=== PATIENT | male | born 1955 | race Caucasian/White ===

== ENCOUNTER 2024-04-03 22:44 | Inpatient (IN) ==
--- OUTSIDE RECORDS SUMMARY | 2024-04-03 22:59 | External Medical Summary | Summary of Care ---
Author Name Unknown Organization [facility] Address [address] [place] [address] Phone [phone] Care Team Providers Care Repeater Chief Name Role Phone Hira Harvey DO Primary Care Provider Reason for Visit * Reason Onset Date Comments Test Results 03/22/2024 Lmtcb 03/23, lmtcb 03/24 Returning Call 03/22/2024 Encounter Details Date Type Department Care Team (Late st Contact Info) Description 03/22/2024 Telephone Urology Stephanie Sam [address] [place] [address] Joaquín Torres MD [address] [id number] Test Results (Lmtcb 03/23, lmtcb 03/24); Retur... Allergies Active Allergy Reactions Criticality Noted Date Comments Ibuprofen Hives 01/19/2024 documented as of this encounter (statuses as of 03/24/2024) Medications TYLENOL 8 HOUR 650 MG PO TBCRIndications: Multiple sclerosis (HCC) 2 TABLETS NEEDED 10 Tab 0 2 Active Multiple Vitamins-Mineral s (MULTIVITAMIN GUMMIES ADULT) chewable tablet Take 1 Tablet by mouth in the morning. Active polyethylene glycol 3350 (MIRALAX) packet Take 1 Packet by mouth in the morning. Active diazepam (VALIUM) 5 MG Tablet 1/2 to 1 tab at bedtime for spasticity 90 Tab 1 9 Active Additional Information Patient taking differently: 5 mg Oral Q6H PRN, 1/2 to 1 tab at bedtime for spasticity as needed, Reported on 03/17/2024 Vitamin B Complex Oral Tablet Take 1 Tablet by mouth in the morning. Active Vitamin C 100 MG Oral Tablet Take 1 Tablet by mouth in the morning. Active Fluticasone Propionate 50 MCG/ACT Nasal Suspension (Flonase)Indicat ions:ETD (Eustachian tube dysfunction), left USE 2 SPRAYS IN EACH NOSTRIL DAILY 48 g 3 2 Active Vitamin D (Ergocalciferol) 50 MCG (2000 UT) Oral Capsule Taking 2500 per day 1 Capsule 3 Active Amoxicillin 875 MG Oral Tablet Take 1 Tablet by mouth. Take prior to dental procedures 4 Active Tums Smoothies 750 MG Oral Tablet Chewable (calcium CARBonate) Take 300 mg by mouth as needed. 4 Active Cholecalciferol 50 MCG (2000 UT) Oral Capsule Take 1 Capsule by mouth in the morning. 4 Active Mylanta Coat & Cool 1200-270-80 MG/10ML Oral Suspension (Adrian Carb-Mag Hydrox-Simeth) Take by mouth. Active Rosuvastatin Calcium 5 MG Oral Tablet (Crestor)Indicat ions:Mixed dyslipidemia TAKE 1 TABLET IN THE MORNING 90 Tablet 1 4 Active oxyCODONE-Acetam inophen 5-325 MG Oral Tablet (Percocet) Take 1 Tablet by mouth every 4 hours as needed for Pain, Severe for up to 15 doses. 10 Tablet 4 Active HYDROcodone-Acet aminophen 7.5-325 MG Oral TabletIndication s:Pain due to dental caries Take 1 Tablet by mouth 2 times a day as needed for Pain, Severe. 30 Tablet 5 Active Ciprofloxacin HCl 500 MG Oral Tablet (Cipro) 5 Active metroNIDAZOLE 500 MG Oral Tablet (Flagyl) 5 Active Sucralfate 1 GM Oral Tablet (Carafate) 5 Active hydrOXYzine HCl 10 MG Oral Tablet (Atarax) Take 1 Tablet by mouth every 6 hours as needed for Anxiety. 90 Tablet 1 5 Active documented as of this encounter (statuses as of 03/24/2024) Active Problems Problem Noted Date Diagnosed Date Recurrent left inguinal hernia 12/16/2023 Elevated prostate specific antigen (PSA) 023 History of nonmelanoma skin cancer 05/20/2022 Overview (05/20/2022): Hx of BCC R temporal scalp s/p Mohs 05/07, L upper arm s/p C&C 04/2021, L faith s/p Mohs 2020, SCC dorsal R hand s/p Mohs 2020 Renal cyst 10/16/2017 Overview (10/16/2017): 09/02 5cm R cyst, 10/03 4.8cm - advised 1 year FU with US Dyslipidemia 03/01/2001 Gastroesophageal reflux disease without esophagi tis Multiple sclerosis documented as of this encounter (statuses as of 03/24/2024) Resolved Problems Problem Noted Date Diagnosed Date Resolved Date Encounter for central line care 07/29/2022 02/03/2023 Prediabetes 11/26/2020 07/01/2023 Overview: Per Prediabetes protocol Actinic keratosis 12/28/2012 02/03/2023 Verruca 12/28/2012 11/17/2016 Sun-damaged skin 12/28/2012 10/16/2017 Asthma with severity to be determined 08/09/2009 11/16/2009 Overview (05/28/2015): Per Asthma Taxonomy ICD-10 update of inactive term ADVANCE DIRECTIVE INFORMATION 07/30/2004 10/16/2017 Overview (07/30/2004): No, Advance Directive brochure given to patient at prior appointment. Family history of other card iovascular diseases 02/15/2001 11/17/2016 Overview (05/10/2015): ICD-10 update of inactive term FAM HX-DIABETES MELLITUS 02/15/200103/2016 ABDOMINAL PAIN, RIGHT UPPER QUADRANT 02/15/2001 10/27/2016 Abdominal pain, generalized 02/15/2001 10/27/2016 Asthma, allergic 08/09/2009 VACCIN FOR TUBERCULOSIS 01/16 documented as of this encounter (statuses as of 03/24/2024) Immunizations Name Administration Dates Next Due HEP A - Hepatitis A (Adult > 18 yrs) 12/22/1995, 06/25/1995 Hepatitis B, 20+ yrs 10/24/1997,02/13/1997,12/26 Influenza, Whole Virus 01/08/2005,1998,12/07/1997,12/23,12/22/1995 MMR - Measles/Mumps/Rubella Vaccine 11/16/1986 Meningococcal Polysaccharide Vaccine ([place]) 06/25/1995 OPV - Polio Virus Vaccine (Oral) 11/16/1978 Pneumococcal Polysaccharide PPV23 (Pneumovax) 05/22/2003 Pneumococcal Vaccine, Unspec ified Formulation 05/06/2002 Seasonal Influenza Vac., MDV , IM, 0.5 mL (Fluzone) 10/18/2014,10/24/2013,10/25/2012,11/20,11/16/2009,11/01/2008,12/31/2007 ,12/02/2006 Seasonal Influenza, PF, 6 M & above, IM , (FluLaval or Fluzone) 12/29/2018,12/10/2017,11/17/2016 TD - Tetanus/Diptheria (ADULT) 01/19/2006,1995 TDAP (age 10 and older)(Boostrix) 05/07/2023 TDAP, Age 7 and older, IM (Adacel) 11/16/2009 Typhoid VICPs Parenteral, 2 years and above (Typhim ) 06/25/1995 Yellow Fever Vaccine, Live (YF-Vax) 05/27/1989 documented as of this encounter Social History Tobacco Use Types Packs/Day Years Used Date Smoking Tobacco: Never Passive Smoke Exposure: Never Smokeless Tobacco: Never Alcohol Use Standard Drinks/Week Comments Yes 0 (1 standard drink = 0.6 oz pur e alcohol) rare PHQ-2 Answer Date Recorded PHQ Adult Total Score 0 07/12/2020 Hunger Vital Sign Answer Date Recorded Within the past 12 months, y ou worried that your food would run out before you got the money to buy more. Patient declined Within the past 12 months, t he food you bought just didn't last and you didn't have money to get more. Patient declined Childcare Answer Date Recorded Do you feel overwhelmed with taking care of a child, family member or friend? No 03/09/2024 Does your family need help f inding childcare? (Household - for ages 0-17 years) Not on file 03/09/2024 Clothing Answer Date Recorded Have you been unable to get clothing when it was really needed? No 03/09/2024 Is your family able to get c lothes or diapers when needed? (Household - for ages 0-17 years) Not on file 03/09/2024 Personal Safety Answer Date Recorded Do you feel unsafe or have concerns for your saf ety? No 03/09/2024 Do you have concerns for you r family's safety? (Household - for ages 0-17 years) Not on file 03/09/2024 Utilities Answer Date Recorded Do you have trouble paying y our heating, water, or electric bill? No 03/09/2024 Is your family able to pay t he heat, water, or electric bill? (Household - for ages 0-17 years) Not on file 03/09/2024 Does your family have access to good internet? (Household - for ages 0-17 years) Not on file 03/09/2024 Employment Status Answer Date Recorded Are you unemployed or without regular income? No 03/09/2024 Does the household have a re gular source of income? (Household - for ages 0-17 years) Not on file 03/09/2024 Social Connections Answer Date Recorded How often do you feel lonely or isolated from th ose around you? Never 03/09/2024 Financial Resource Strain Answer Date R ecorded Do you have any trouble payi ng for your medications, or do you think you might in the future? No 03/09/2024 Does your family have troubl e paying for medicine? (Household - for ages 0-17 years) Not on file 03/09/2024 Transportation Needs Answer Date Record ed Do you have trouble getting a ride to medical visits or work? (Adult - for ages 18 years and over) Not on file 03/09/2024 Does your family have a hard time getting a ride to doctors visits? (Household - for ages 0-17 years) Not on file 03/09/2024 Has lack of transportation k ept you from medical appointments, meetings, work, or from getting things needed for daily living? Check all that apply. No 03/09/2024 Do you (or your family) have trouble finding or paying for a ride (transportation)? (Household - for ages 0-17 years) Not on file 03/09/2024 Housing Stability Answer Date Recorded Do you currently live in a s helter or have no steady place to sleep at night? No 03/09/2024 Do you think you are at risk of becoming homeless? (Adult - for ages 18 years and over) Not on file 03/09/2024 Does your family worry about paying for your home or becoming homeless? (Household - for ages 0-17 years) Not on file 0 03/09/2024 Are you homeless or worried that you might be in the future? No 03/09/2024 Are you (or your family) john eless or worried that you might be in the future? (Household - for ages 0-17 years) Not on file Food Insecurity Answer Date Recorded Do you need food for this week? No 03/09/2024 Are you able to get enough f ood for your family? (Household - for ages 0-17 years) Not on file 03/09/2024 Does your family need food t his week? (Household - for ages 0-17 years) Not on file 03/09/2024 Do you always have enough fo od for your family? (Household - for ages 0-17 years) Not on file 03/09/2024 Food Insecurity Answer Date Recorded Within the past 12 months, y ou worried that your food would run out before you got the money to buy more. Patient declined Within the past 12 months, t he food you bought just didn't last and you didn't have money to get more. Patient declined Do you need food for this week? 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 * Telephone Encounter - Paris López OSA - 03/23/2024 11:50 AM EST Reason for patient's call: returning call Caller was transferred to [facility] at the nurse line. * Telephone Encounter - Deanna Corcoran LPN - 03/23/2024 11:02 AM EST lmtcb * Telephone Encounter - Joaquín Torres MD - 03/22/2024 3:37 PM EST Prostate MRI results are reviewed. This demonstrates a small area which is worrisome for the presence of clinically significant prostate cancer. Due to the small size of this area, my recommendation would be to consider an MRI fusion biopsy which would need to be performed in [place]. We can placeconsultation for discussion with providers there if they wished to see the patient prior to consideration of biopsy. If the patient wishes to discuss his findings beforehand he can follow-up as scheduled next month to review imaging results. Otherwise, we can place order for consultation for fusionbiopsy. Thanks, HM documented in this encounter Plan of Treatment Upcoming Encounters Date Type Department Care Team (Latest Contact Info) Description 04/12/2024 1:00 PM EST Hospital Encounter ENDO OSS, Endoscopy Room [facility] [address] [place] [phone] Sydnie Epps MD [address] [place] [address] 04/12/2024 1:00 PM EST - 04/12/2024 1:30 PM EST Surgery ENDO OSS, Endoscopy Room [facility] [address] [place] [phone] Sydnie Epps MD [address] [address] COLONOSCOPY FLEXIBLE PROXIMAL DIAGNOSTIC 04/29/2024 11:00 AM EDT Office Visit Gastroenterology, [facility] [address] [place] [address] Lima Page CRNP [address] [place] [address] 05/12/2024 11:15 AM EDT Office Visit Urology Stephanie Sam [address] [place] [address] Joaquín Torres MD [address] [place] [address] [address] 06/06/2024 9:20 AM EDT Office Visit Neurology [facility] [address] [facility] [place] [address] Renetta Dow MD [address] [facility] [place] [address] 07/15/2024 7:45 AM EDT Office Visit MOHS Surgery [facility] [address] [place], [place] [address] Eileen Deluca MD [address] [facility] [address] 09/15/2024 8:00 AM EDT Office Visit Family Practice [facility] [address] [place] [address] Deanna Lujan CRNP [address] [place] [address] 02/02/2025 9:40 AM EST Office Visit Dermatology [facility] [address] [facility] [place] [address] Kimberly Qureshi PA-C [address] [facility] [place] [address] Scheduled Procedures Name Priority Associated Diagnoses Date/Ti me COLONOSCOPY FLEXIBLE PROXIMAL DIAGNOSTIC LLQ abdominal pain History of diverticulitis Gastroesophageal reflux disease, unspecified whether esophagitis present Gastroesophageal reflux disease without esophagitis 04/12/2024 1:00 PM EST Health Maintenance Due Date Last Done Comments Cologuard 2002 Fecal Occult Blood Test 2002 Sigmoidoscopy 2002 Pneumococcal Vaccine: 50+ Years (2 of 2 - PCV) 07/03/2007 05/22/2003 Zoster Vaccines (1 of 2) 07/03/2007 Depression Screening 07/12/2021 07/12/2020 Adult Wellness Visit 07/03/2023 COVID-19 Vaccine (1 - season) 2023 Influenza Vaccine (FLU shot) (#1) 2023 12/29/2018, 12/10/2017, 11/17/2016, Additional history exists Colonoscopy 06/24/2025 06/24/2022, 10/2022, 05/26/2018, Additional history exists Colorectal Cancer Screening 06/24/2025 Lipid Panel 06/01/2028 06/02/2023, 10/2022, 09/18/2021, Additional history exists DTap/Tdap Vaccines (3 - Td or Tdap) 05/06/2033 05/07/2023, 11/16/2009, 01/19/2006, Additional history exists MENINGOCOCCAL (MENACTRA/MENVEO) Aged Out 06/25/1995 No longer eligible based on patient's age to complete this topic Hepatitis B Vaccine Completed 10/24/1997, 02/13/1997, 12/26/1996 Hepatitis C Screening Completed 07/20/2012 HPV (Gardasil) Vaccine Aged Out No lo nger eligible based on patient's age to complete this topic documented as of this encounter Medical Devices Implanted Type Area Electro Optics Engineer Device Identifier Shelf Expiration Date Model / Serial / Lot Mesh 13x9cm Monofilament Hernia Anatomical Medium Left Preshaped With Marking Polypropylene Dextile - [id number] Implanted:Qty: 1 on 01/19/2024 by Doron Torres MD at OR [facility] Left: Groin COVIDIEN 11/16/2027 [id number] / / [id number] documented as of this encounter Advance Directives * Full Code (Latest Code Status on File) Date Activated Date Inactivated Comments 01/19/2024 7:23 AM 01/19/2024 2:22 PM This order r eflects the patients wishes and were consensually agreed upon. Question Answer Comments Discussion of Advance Directives occurred with: Patient Care Teams Repeater Chief Relationship Specialty Start Date End Date Hira Harvey DO [address] [place] [address] PCP - General Family Medicine 06/22/20 documented as of this encounter
--- OUTSIDE RECORDS SUMMARY | 2024-04-03 22:59 | External Medical Summary | Summary of Care ---
Author Name Unknown Organization [facility] Address [address] [place] [address] Phone [phone] Care Team Providers Care Computer Forensics Technician Name Role Phone Hira Harvey DO Primary Care Provider Reason for Visit * Reason Onset Date Comments Test Results 03/22/2024 Lmtcb 03/23, lmtcb 03/24 Returning Call 03/22/2024 Encounter Details Date Type Department Care Team (Late st Contact Info) Description 03/22/2024 Telephone Urology Stephanie Sam [address] [place] [address] Joaquín Torres MD [address] [place] [address] [id number] Test Results (Lmtcb 03/23, lmtcb 03/24); Retur... [...] L upper arm s/p C&C 04/2021, L denominational s/p Mohs 2020, SCC dorsal R hand [...] Encounter - Deanna Corcoran LPN - 03/24/2024 1:21 PM EST Spoke with pt, aware of results and below information, voiced understanding. Patient is agreeable to fusion biopsy and knows this is done in [place]. Please call him to schedule. Patient has colonoscopy scheduled 04/12/24, he is unsure if this will affect biopsy. Please arrange follow up with Dr Torers about 2 weeks after biopsy to discuss results as well. Currently scheduled 05/12/2024, patient is aware this may need to be moved. Thank you Ana M * Telephone Encounter - Deanna Corcoran LPN - 03/24/2024 10:49 AM EST Lmtcb * Telephone Encounter - Loree Alvarez OSA - 03/23/2024 11:53 AM EST Call before 1:30 if possible for test results as he has a dentist appt. * Telephone Encounter - Paris López OSA - 03/23/2024 11:50 AM EST Reason for patient's call: returning call Caller was transferred to [facility] at the nurse line. * Telephone Encounter [...] which would need to be performed in [place]. We can placeconsultation for discussion with providers [...] 04/12/2024 1:00 PM EST Hospital Encounter ENDO OSSC, Endoscopy Room [facility] [address] [place] [phone] Sydnie Epps MD [address] [place] [address] 04/12/2024 1:00 PM EST - 04/12/2024 1:30 PM EST Surgery ENDO OSS, Endoscopy Room [facility] [address] [place] [phone] Sydnie Epps MD [address] [place] [address] COLONOSCOPY FLEXIBLE PROXIMAL DIAGNOSTIC 04/29/2024 11:00 AM EDT Office Visit Gastroenterology, [facility] [address] [place] [address] Lima Page CRNP [address] [place] [address] 05/12/2024 11:15 AM EDT Office Visit Urology Naty WatkinsStephanie [address] [place] [address] Joaquín Torres MD [address] [place] [address] 06/06/2024 9:20 AM EDT Office Visit Neurology [facility] [address] [facility] [place] [address] Renetta Dow MD [address] [place] [address] 07/15/2024 7:45 AM EDT Office Visit [facility] [address] Eileen Deluca MD [address] [facility] [place] [address] 09/15/2024 8:00 AM EDT Office Visit Family Practice [facility] [address] [place] [address] Deanna Lujan CRNP 132 [facility] [place] [address] 02/02/2025 9:40 AM EST Office Visit Dermatology [facility] [address] [place] [address] Kimberly Qureshi PA-C [address] [facility] [place] [address] Scheduled Procedures Name Priority Associated Diagnoses Date/Ti [...] 11/17/2016, Additional history exists Colonoscopy 06/24/2025 06/24/2022, 0 10/2022, 05/26/2018, Additional history exists Colorectal Cancer [...] this encounter Medical Devices Implanted Type Area Lube Attendant Device Identifier Shelf Expiration Date Model / Serial / Lot Mesh 13x9cm Monofilament Hernia Anatomical Medium Left Preshaped With Marking Polypropylene Dextile - [id number] Implanted:Qty: 1 on 01/19/2024 by Doron Torres MD at OR [facility] Left: Groin COVIDIEN 11/16/2027 [id number] / / [id number] documented as of this encounter Advance Directives * Full Code (Latest Code Status on File) Date Activated Date Inactivated Comments 01/19/2024 7:23 AM 01/19/2024 2:22 PM This order r eflects the patients wishes and were consensually agreed upon. Question Answer Comments Discussion of Advance Directives occurred with: Patient Care Teams Computer Forensics Technician Relationship Specialty Start Date End Date Hira Harvey DO [address] [place] [address] PCP - General Family Medicine 06/22/20 documented as of this encounter
--- OUTSIDE RECORDS SUMMARY | 2024-04-03 22:59 | External Medical Summary ---
Author Name Unknown Address Unknown Organization K01:[facility] [place] [address] [address] [facility] [address] Laboratory Report Ordering Provider Test Date Status [address] 04/01/2024 10:50:47 Final Observation Date Value Abnormality Reference (Units ) Status Campylobacter sp DNA.diarrheagenic [Presence] in Stool by DWAINE with probe detection 04/01/2024 10:50:47 Negative Negative Final Salmonella sp rpoD gene [Presence] in Stool by DWAINE with probe detection 04/01/2024 10:50:47 Negative Negative Final Shigella species+EIEC invasion plasmid antigen H ipaH gene [Presence] in Stool by DWAINE with probe detection 04/01/2024 10:50:47 Negative Negative Final Vibrio sp DNA [Identifier] in Specimen by DWAINE with probe detection 04/01/2024 10:50:47 Negative Negative Final Yersinia enterocolitica recN gene [Presence] in Stool by DWAINE with probe detection 04/01/2024 10:50:47 Negative Negative Final Escherichia coli Stx1 toxin stx1 gene [Presence] in Stool by DWAINE with probe detection 04/01/2024 10:50:47 Negative Negative Final Escherichia coli Stx2 toxin stx2 gene [Presence] in Stool by DWAINE with probe detection 04/01/2024 10:50:47 Negative Negative Final Norovirus genogroups I and II RNA panel - Stool by DWAINE with probe detection 04/01/2024 10:50:47 Negative Negative Final Rotavirus A RNA [Presence] in Stool by DWAINE with probe detection 04/01/2024 10:50:47 Negative Negative Final Performing Location LABORATORY [address] [facility] [address]
--- OUTSIDE RECORDS SUMMARY | 2024-04-03 22:59 | External Medical Summary | Summary of Care ---
Author Name Unknown Organization [facility] Address [address] [place] [address] Phone [phone] Care Team Providers Care Electric Motor Rebuilder Name Role Phone Hira Harvey DO Primary Care Provider Reason for Visit * Reason Onset Date Comments Test Results 03/22/2024 Lmtcb 03/23, lmtcb 03/24 Returning Call 03/22/2024 Encounter Details Date Type Department Care Team (Late st Contact Info) Description 03/22/2024 Telephone Urology Stephanie Sam [address] [place] [address] Joaquín Torres MD [address] [place] [address] [id number] Test Results (Lmtcb 2, lmtcb 03/24); Retur... Allergies Active Allergy Reactions Criticality Noted Date Comments Ibuprofen Hives 01/19/2024 documented as of this encounter (statuses as of 03/29/2024) Medications TYLENOL 8 HOUR 650 MG PO [...] as of this encounter (statuses as of 03/29/2024) Active Problems Problem Noted Date Diagnosed Date Recurrent left inguinal hernia 12/16/2023 Elevated prostate specific antigen (PSA) 023 History of nonmelanoma skin cancer 05/20/2022 Overview (05/20/2022): Hx of BCC R temporal scalp s/p Mohs 05/07, L upper arm s/p C&C 04/2021, L buddhist s/p Mohs 2020, SCC dorsal R hand s/p Mohs 2020 Renal cyst 10/16/2017 Overview (10/16/2017): 09/02 5cm R cyst, 10/03 4.8cm - advised 1 year FU with US Dyslipidemia 03/01/2001 Gastroesophageal reflux disease without esophagi tis Multiple sclerosis documented as of this encounter (statuses as of 03/29/2024) Resolved Problems Problem Noted Date Diagnosed Date [...] as of this encounter (statuses as of 03/29/2024) Immunizations Name Administration Dates Next Due HEP [...] encounter Miscellaneous Notes * Telephone Encounter - Pascual Garcia OSA - 03/29/2024 1:01 PM EST Please reach out to patient to schedule. Thank you! * Telephone Encounter - Deanna Corcoran LPN - 03/24/2024 1:21 PM EST Spoke with pt, aware of results and below information, voiced understanding. Patient is agreeable to fusion biopsy and knows this is done in [place]. Please call him to schedule. Patient has colonoscopy scheduled 04/12/24, he is unsure if this will affect biopsy. Please arrange follow up with Dr Torres about 2 weeks after biopsy to discuss [...] call: returning call Caller was transferred to [facility] at the nurse line. * Telephone [...] which would need to be performed in [place]. We can placeconsultation for discussion with providers [...] EST Hospital Encounter ENDO OSSC, Endoscopy Room [facility] [address] [place] [phone] Sydnie Epps MD [address] [place] [address] 04/12/2024 1:00 PM EST - 04/12/2024 1:30 PM EST Surgery ENDO OSSC, Endoscopy Room OSS [address] [place] [address] Sydnie Epps MD [address] [place] [address] COLONOSCOPY FLEXIBLE PROXIMAL DIAGNOSTIC 04/29/2024 11:00 AM EDT Office Visit Gastroenterology, [facility] 132 [facility] [place] [address] Lima Page CRNP 132 [facility] [address] 05/12/2024 11:15 AM EDT Office Visit Urology Nat[place] Stephanie Watkins [address] [place] [address] Joaquín Torres MD 27 [place] [address] 06/06/2024 9:20 AM EDT Office Visit [facility] [address] Renetta Dow MD 200 [place] [address] 06/24/2024 3:30 PM EDT Office Visit Urology, [place] [address] [place] [address] Juan Miguel Manley MD [address] [place] [address] 07/15/2024 7:45 AM EDT Office Visit MOHS Surgery [facility] 200 [place] [address] Eileen Deluca MD 200 [facility] [address] 09/15/2024 8:00 AM EDT Office Visit Family Practice [facility] 132 [facility] [place] [address] Deanna Lujan CRNP [address] [place] [address] 02/02/2025 9:40 AM EST Office Visit Dermatology Kishore Roberson [place] 200 [facility] [place] [address] Kimberly Qureshi PA-C [address] [place] [address] Scheduled Procedures Name Priority Associated Diagnoses Date/Ti [...] 07/12/2020 Adult Wellness Visit 07/03/2023 COVID-19 Vaccine ( - season) 2023 Influenza Vaccine (FLU shot) (#1) 2023 12/29/2018, 12/10/2017, 11/17/2016, Additional history exists Colonoscopy 06/24/2025 06/24/2022, 10/2022, 05/26/2018, Additional history exists Colorectal Cancer Screening 06/24/2025 Lipid Panel 06/01/2028 06/02/2023, 0 10/2022, 09/18/2021, Additional history exists DTap/Tdap Vaccines [...] this encounter Medical Devices Implanted Type Area Java Xml Developer Device Identifier Shelf Expiration Date Model / Serial / Lot Mesh 13x9cm Monofilament Hernia Anatomical Medium Left Preshaped With Marking Polypropylene Dextile - [id number] Implanted:Qty: 1 on 01/19/2024 by Doron Torres MD at OR [facility] Left: Groin COVIDIEN 11/16/2027 [id number] / / [id number] documented as of this encounter Advance Directives * Full Code (Latest Code Status on File) Date Activated Date Inactivated Comments 01/19/2024 7:23 AM 01/19/2024 2:22 PM This order r eflects the patients wishes and were consensually agreed upon. Question Answer Comments Discussion of Advance Directives occurred with: Patient Care Teams Electric Motor Rebuilder Relationship Specialty Start Date End Date Hira Harvey DO [address] [place] [address] PCP - General Family Medicine 06/22/20 documented as of this encounter
--- OUTSIDE RECORDS SUMMARY | 2024-04-03 22:59 | External Medical Summary | Summary of Care ---
Author Name Unknown Organization [facility] Address [address] [place] [address] Phone [phone] Care Team Providers Care Log Washer Name Role Phone Hira Harvey DO Primary Care Provider Reason for Visit * Reason Onset Date Comments Test Results 04/01/2024 Encounter Details Date Type Department Care Team (Late st Contact Info) Description 04/01/2024 Telephone Gastroenterology, [facility] [address] [place] [address] Lima Page CRNP 132 [facility] [place] [address] Test Results Allergies Active Allergy Reactions Criticality Noted Date Comments Ibuprofen Hives 01/19/2024 documented as of this encounter (statuses as of 04/01/2024) Medications TYLENOL 8 HOUR 650 MG PO [...] 2 Active Vitamin D (Ergocalciferol) 50 MCG (1999 UT) Oral Capsule Taking 2500 per day 1 Capsule 3 Active Amoxicillin 875 MG Oral Tablet Take 1 Tablet by mouth. Take prior to dental procedures 4 Active Tums Smoothies 750 MG Oral Tablet Chewable (calcium CARBonate) Take 300 mg by mouth as needed. 4 Active Cholecalciferol 50 MCG (1999 UT) Oral Capsule Take 1 Capsule by [...] for Anxiety. 90 Tablet 1 5 Active Esomeprazole Magnesium 20 MG Oral Capsule Delayed Release (NexIUM)Indicati ons:LLQ abdominal pain,History of diverticulitis,G astroesophageal reflux disease, unspecified whether esophagitis present Take 2 Capsules by mouth daily before breakfast. 180 Capsule 3 5 Active Famotidine 20 MG Oral Tablet (Pepcid)Indicati ons:LLQ abdominal pain,History of diverticulitis,G astroesophageal reflux disease, unspecified whether esophagitis present Take 1 Tablet by mouth at bedtime. 90 Tablet 3 5 Active documented as of this encounter (statuses as of 04/01/2024) Active Problems Problem Noted Date Diagnosed Date Recurrent left inguinal hernia 12/16/2023 Elevated prostate specific antigen (PSA) 023 History of nonmelanoma skin cancer 05/20/2022 Overview (05/20/2022): Hx of BCC R temporal scalp s/p Mohs 05/07, L upper arm s/p C&C 04/2021, L amish s/p Mohs 2020, SCC dorsal R hand s/p Mohs 2020 Renal cyst 10/16/2017 Overview (10/16/2017): 09/02 5cm R cyst, 10/03 4.8cm - advised 1 year FU with US Dyslipidemia 03/01/2001 Gastroesophageal reflux disease without esophagi tis Multiple sclerosis documented as of this encounter (statuses as of 04/01/2024) Resolved Problems Problem Noted Date Diagnosed Date [...] as of this encounter (statuses as of 04/01/2024) Immunizations Name Administration Dates Next Due HEP [...] encounter Miscellaneous Notes * Telephone Encounter - Elayne Lund CMA - 04/01/2024 3:29 PM EST ----- Message from Lima Page sent at 04/01/2024 3:04 PM EST ----- C diff negative documented in this encounter Plan of Treatment Upcoming Encounters Date Type Department Care Team (Latest Contact Info) Description 04/12/2024 1:00 PM EST Hospital Encounter ENDO [facility], Endoscopy Room [facility] 132 [facility] [place] [phone] Sydnie Epps MD [address] [place] [address] 04/12/2024 1:00 PM EST - 04/12/2024 1:30 PM EST Surgery ENDO OSS, Endoscopy Room [facility] [address] [place] [phone] Sydnie Epps MD [address] [place] [address] COLONOSCOPY FLEXIBLE PROXIMAL DIAGNOSTIC 04/29/2024 11:00 AM EDT Office Visit Gastroenterology, [facility] [address] [place] [address] Lima Page CRNP [address] [place] [address] 05/12/2024 11:15 AM EDT Office Visit Urology Stephanie Sam [address] [place] [address] Joaquín Torres MD [address] [place] [address] 06/06/2024 9:20 AM EDT Office Visit Neurology [facility] 200 [place] [address] Renetta Dow MD 200 [place] [address] 06/24/2024 3:30 PM EDT Office Visit Urology, [place] [address] [place] [address] Juan Miguel Manley MD [address] [place] [address] 07/15/2024 7:45 AM EDT Office Visit MOHS Surgery [facility] [address] [place] [address] Eileen Deluca MD 200 [place] [address] 09/15/2024 8:00 AM EDT Office Visit Family Practice [facility] [address] [place] [address] Deanna Lujan CRNP [address] [place] [address] 02/02/2025 9:40 AM EST Office Visit Dermatology Kishore Roberson [place] 200 [facility] [place], [place] [address] Kimberly Qureshi PA-C 200 [facility] [place] [address] Scheduled Procedures Name Priority Associated Diagnoses Date/Ti [...] 11/17/2016, Additional history exists Colonoscopy 06/24/2025 06/24/2022, 050 10/2022, 05/26/2018, Additional history exists Colorectal Cancer Screening 06/24/2025 Lipid Panel 06/01/2028 06/02/2023, /0 10/2022, 09/18/2021, Additional history exists DTap/Tdap Vaccines [...] on patient's age to complete this topic Meningitis B Vaccine (Bexsero/Trumemba) Aged Out No longer eligible based on patient's age to complete this topic documented as of this encounter Medical Devices Implanted Type Area Skiving Machine Operator Device Identifier Shelf Expiration Date Model / Serial / Lot Mesh 13x9cm Monofilament Hernia Anatomical Medium Left Preshaped With Marking Polypropylene Dextile - [id number] Implanted:Qty: 1 on 01/19/2024 by Doron Torres MD at OR [facility] Left: Groin COVIDIEN 11/16/2027 [id number] / / [id number] documented as of this encounter Additional Health Concerns Infection Onset Date Last Indicated Resolved Time Gastrointestinal Rule-Out 04/01/2024 04/01/2024 7:04 PM EST C. difficile Rule-Out 04/01/2024 04/01/20242024 2:35 PM EST documented as of this encounter Advance Directives * Full Code (Latest Code Status on File) Date Activated Date Inactivated Comments 01/19/2024 7:23 AM 01/19/2024 2:22 PM This order r eflects the patients wishes and were consensually agreed upon. Question Answer Comments Discussion of Advance Directives occurred with: Patient Care Teams Log Washer Relationship Specialty Start Date End Date Hira Harvey DO [address] [place] [address] PCP - General Family Medicine 06/22/20 documented as of this encounter
--- OUTSIDE RECORDS SUMMARY | 2024-04-03 22:59 | External Medical Summary | Summary of Care ---
Author Name Unknown Organization [facility] Address [address] [place] [address] Phone [phone] Care Team Providers Care Slate Splitter Name Role Phone Hira Harvey DO Primary Care Provider Reason for Visit * Reason Comments Outpatient Testing Encounter Details Date Type Department Care Team (Late st Contact Info) Description 04/01/2024 10:50 AM EST Laboratory Laboratory, [facility] [address] [place] [address] St, Specimen Drop [facility] [address] [place], [place] [id number] LLQ abdominal pain; History of diverticulitis; Gastroesophageal reflux disease, unspecified whether esophagitis present; Diarrhea, unspecified type Allergies Active Allergy Reactions Criticality Noted Date [...] L upper arm s/p C&C 04/2021, L samaritan s/p Mohs 2020, SCC dorsal R hand [...] on file documented as of this encounter Plan of Treatment Upcoming Encounters Date Type Department Care Team (Latest Contact Info) Description 04/12/2024 1:00 PM EST Hospital Encounter ENDO OSS[facility], Endoscopy Room [facility] [address] [place] [phone] Sydnie Epps MD [address] [place] [address] 04/12/2024 1:00 PM EST - 04/12/2024 1:30 PM EST Surgery ENDO OSS, Endoscopy Room [facility] [address] [place] [phone] Sydnie Epps MD [address] [place] [address] COLONOSCOPY FLEXIBLE PROXIMAL DIAGNOSTIC 04/29/2024 11:00 AM EDT Office Visit Gastroenterology, [facility] [address] [place] [address] Lima Page CRNP [address] [place] [address] 05/12/2024 11:15 AM EDT Office Visit Urology Naty Stephanie Watkins [address] [place] [address] Joaquín Torres MD [address] [place] [address] 06/06/2024 9:20 AM EDT Office Visit Neurology [facility] 200 [place] [address] Renetta Dow MD 200 [place] [address] 06/24/2024 3:30 PM EDT Office Visit Urology, [place] [address], [place] [phone] Juan Miguel Manley MD [address], [place] [address] 07/15/2024 7:45 AM EDT Office Visit MOHS Surgery [facility] 200 [place] [address] Eileen Deluca MD [facility] [address] 09/15/2024 8:00 AM EDT Office Visit Family Practice [facility] [address] Deanna Lujan [facility] [address] 02/02/2025 9:40 AM EST Office Visit Dermatology [facility] [address] Kimberly Qureshi PA-C [facility] [address] Pending Results Name Type Priority Associated Diagnoses Date /Time GASTROINTESTINAL PATHOGEN PANEL, STOOL Lab Routine LLQ abdominal pain History of diverticulitis Gastroesophageal reflux disease, unspecified whether esophagitis present Diarrhea, unspecified type 04/01/2024 10:50 AM EST CLOSTRIDIUM DIFFICILE, PCR Lab Routine LLQ abdominal pain History of diverticulitis Gastroesophageal reflux disease, unspecified whether esophagitis present 04/01/2024 10:46 AM EST GASTROINTESTINAL PATHOGEN PANEL PCR Lab Routine LLQ abdominal pain History of diverticulitis Gastroesophageal reflux disease, unspecified whether esophagitis present Diarrhea, unspecified type 04/01/2024 10:50 AM EST GASTROINTESTINAL PATHOGEN PANEL CULTURE Lab Routine LLQ abdominal pain History of diverticulitis Gastroesophageal reflux disease, unspecified whether esophagitis present Diarrhea, unspecified type 04/01/2024 10:50 AM EST Scheduled Procedures Name Priority Associated Diagnoses Date/Ti [...] Adult Wellness Visit 07/03/2023 COVID-19 Vaccine ( season) 2023 Influenza Vaccine (FLU shot) (#1) [...] this encounter Medical Devices Implanted Type Area [place]ra [place]ta Roofer Device Identifier Shelf Expiration Date Model / Serial / Lot Mesh 13x9cm Monofilament Hernia Anatomical Medium Left Preshaped With Marking Polypropylene Dextile - [id number] Implanted:Qty: 1 on 01/19/2024 by Doron Torres MD at OR [facility] Left: Groin COVIDIEN 11/16/2027 [id number] / / [id number] documented as of this encounter Visit Diagnoses Diagnosis LLQ abdominal pain Abdominal pain, left lower quadrant History of diverticulitis Gastroesophageal reflux disease, unspecified whether esophagitis present Diarrhea, unspecified type LLQ abdominal pain Abdominal pain, left lower quadrant History of diverticulitis Gastroesophageal reflux disease, unspecified whether esophagitis present Gastroesophageal reflux disease without esophagitis Esophageal reflux documented in this encounter Additional Health Concerns Infection Onset Date Last Indicated Resolved Time Gastrointestinal Rule-Out 04/01/2024 04/01/2024 C. difficile Rule-Out 04/01/2024 04/01/2024 documented as of this encounter Advance Directives * Full Code (Latest Code Status on File) Date Activated Date Inactivated Comments 01/19/2024 7:23 AM 01/19/2024 2:22 PM This order r eflects the patients wishes and were consensually agreed upon. Question Answer Comments Discussion of Advance Directives occurred with: Patient Care Teams Slate Splitter Relationship Specialty Start Date End Date Hira Harvey DO [address] [place] [address] PCP - General Family Medicine 06/22/20 documented as of this encounter
--- OUTSIDE RECORDS SUMMARY | 2024-04-03 22:59 | External Medical Summary | Summary of Care ---
Author Name Unknown Organization [facility] Address [address] [place] [address] Phone [phone] Care Team Providers Care Engine Wiper Name Role Phone Hira Harvey DO Primary Care Provider Reason for Referral * Precert (Diagnostic Medical) (Within 10 days (routine)) - Authorized Specialty Diagnoses / Procedures Referred By Contac t Referred To Contact Cardiac Studies Diagnoses Multiple sclerosis (HCC) Other chest pain Procedures ECHO, STRESS (DOBUTAMINE) W/ PHYSICIAN Hira Harvey DO [address] [place] [address] Phone: tel: fax: Referral ID Status Reason Start Date Expiration Date V isits Requested Visits Authorized [id number] Authorized Precert 03/24/2024 999 999 Reason for Visit * Reason Onset Date Comments Cardiology Study 03/24/2024 Dobutamine Stre ss Test Encounter Details Date Type Department Care Team (Late st Contact Info) Description 03/24/2024 Telephone Family Practice [facility] [address] [place] [address] Hira Harvey DO [address] [place] [address] Cardiology Study (Dobutamine Stress Test) Allergies Active Allergy Reactions Criticality Noted Date [...] L upper arm s/p C&C 04/2021, L taoist s/p Mohs 2020, SCC dorsal R hand [...] 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 Not on file Not on file N ot on file documented as of this encounter Miscellaneous Notes * Addendum Note - Franco Li RN - 03/24/2024 10:22 AM ESTAddended by: FRANCO LI on: 03/24/2024 10:22 AM Modules accepted: Orders * Telephone Encounter - Franco Li RN - 03/24/2024 10:09 AM EST Order placed "off site" New order placed Ed Juliano ELLISONlog brander Testing Nurse documented in this encounter Plan of Treatment Upcoming Encounters Date Type Department Care Team (Latest Contact Info) Description 04/12/2024 1:00 PM EST Hospital Encounter ENDO [facility] [place] [phone] Sydnie Epps MD [address] [place] [id number] 04/12/2024 1:00 PM EST - 04/12/2024 1:30 PM EST Surgery ENDO OSSC, Endoscopy Room [facility] 132 [facility] [place] [phone] Sydnie Epps MD [address] [place] [address] COLONOSCOPY FLEXIBLE PROXIMAL DIAGNOSTIC 04/29/2024 11:00 AM EDT Office Visit Gastroenterology, [facility] 132 [facility] [place] [address] Lima Page CRNP 132 [facility] [address] 05/12/2024 11:15 AM EDT Office Visit Urology Stephanie Sam [address] [place] [address] Joaquín Torres MD [address] [place] [address] 06/06/2024 9:20 AM EDT Office Visit Neurology [facility] 200 [facility] [place] [address] Renetta Dow MD 200 [facility] [address] 07/15/2024 7:45 AM EDT Office Visit MOHS [facility] [address] Eileen Deluca MD 200 [facility] [place] [address] 09/15/2024 8:00 AM EDT Office Visit Family Practice [facility] [address] [place] [address] Deanna Lujan CRNP [address] [place] [address] 02/02/2025 9:40 AM EST Office Visit Dermatology [facility] 200 [facility] [place] [address] Kimberly Qureshi PA-C 200 [facility] [place] [address] Pending Results Name Type Priority Associated Diagnoses Date /Time ECHO, STRESS (DOBUTAMINE) W/ PHYSICIAN Echocardiology Routine Multiple sclerosis (HCC) Other chest pain 03/24/2024 11:34 AM EST Scheduled Orders Name Type Priority Associated Diagnoses Orde r Schedule ECHO, STRESS (DOBUTAMINE) W/ PHYSICIAN Echocardiology Routine Multiple sclerosis (HCC) Other chest pain Expected: 03/24/2024, Expires: 04/21/2024 Scheduled Procedures Name Priority Associated Diagnoses Date/Ti [...] this encounter Medical Devices Implanted Type Area Solar Installer Device Identifier Shelf Expiration Date Model / Serial / Lot Mesh 13x9cm Monofilament Hernia Anatomical Medium Left Preshaped With Marking Polypropylene Dextile - [id number] Implanted:Qty: 1 on 01/19/2024 by Doron Torres MD at OR [facility] Left: Groin COVIDIEN 11/16/2027 [id number] / / [id number] documented as of this encounter Visit Diagnoses Diagnosis Other chest pain- Primary Multiple sclerosis (HCC) Multiple sclerosis LLQ abdominal pain Abdominal pain, left lower quadrant History of diverticulitis Gastroesophageal reflux disease, unspecified whether esophagitis present Gastroesophageal reflux disease without esophagitis Esophageal reflux documented in this encounter Advance Directives * Full Code (Latest Code Status on File) Date Activated Date Inactivated Comments 01/19/2024 7:23 AM 01/19/2024 2:22 PM This order r eflects the patients wishes and were consensually agreed upon. Question Answer Comments Discussion of Advance Directives occurred with: Patient Care Teams Engine Wiper Relationship Specialty Start Date End Date Hira Harvey DO 132 [facility] [place] [address] PCP - General Family Medicine 06/22/20 documented as of this encounter
--- OUTSIDE RECORDS SUMMARY | 2024-04-03 22:59 | External Medical Summary ---
Author Name Unknown Address Unknown Organization K01:LABORAT[facility] - [address] [place] [address] Laboratory Report Ordering Provider Test Date Status ANGELINA WAY 04/01/2024 10:46:29 Final Observation Date Value Abnormality Reference (Units) Status Source 04/01/2024 10:46:29 Semi-liquid Final Clostridioides difficile toxin and [id number] strain DNA panel - Stool by DWAINE with probe detection 04/01/2024 10:46:29 Negative. No C. difficile toxin B gene DNA detected by PCR (Amplified Probe). Negative Final Performing Location LABORATORY [facility] - [address] [place] [address]
--- OUTSIDE RECORDS SUMMARY | 2024-04-03 22:59 | External Medical Summary | Summary of Care ---
Author Name Unknown Organization [facility] Address [address] [place] [address] Phone [phone] Care Team Providers Care Wastewater Project Manager Name Role Phone Hira Harvey DO Primary Care Provider Reason for Visit * Reason Comments Outpatient Testing Encounter Details Date Type Department Care Team (Late st Contact Info) Description 04/01/2024 10:50 AM EST Laboratory Laboratory, [facility] [address] [place] [address] St, Specimen Drop Off [facility] [address] [place], [place] [id number] LLQ abdominal pain; History of diverticulitis; Gastroesophageal [...] L upper arm s/p C&C 04/2021, L jehovah's witness s/p Mohs 2020, SCC dorsal R hand [...] EST Hospital Encounter ENDO OSSC, Endoscopy Room [facility] [address] [place] [phone] Sydnie Epps MD [address] [place] [address] 04/12/2024 1:00 PM EST - 04/12/2024 1:30 PM EST Surgery ENDO OSS, Endoscopy Room [facility] [address] [place] [address] Sydnie Epps MD [address] [place] [address] COLONOSCOPY FLEXIBLE PROXIMAL DIAGNOSTIC 04/29/2024 11:00 AM EDT Office Visit Gastroenterology, [facility] [address] [place] [address] Lima Page CRNP [address] [place] [address] 05/12/2024 11:15 AM EDT Office Visit Urology Nat[place] Stephanie Watkins [address] [place] [address] Joaquín Torres MD [address] [place] [address] 06/06/2024 9:20 AM EDT Office Visit Neurology [facility] [address] [facility] [place] [address] Renetta Dow MD [address] [facility] [place] [address] 06/24/2024 3:30 PM EDT Office Visit Urology, [place] [address] [place], [place] [phone] Juan Miguel Manley MD [address] [place], [place] [phone] 07/15/2024 7:45 AM EDT Office Visit MOHS Surgery [facility] 200 [place] [address] Eileen Deluca MD 200 [facility] [place] [address] 09/15/2024 8:00 AM EDT Office Visit Family Practice [facility] [address] De[facility] [address] 02/02/2025 9:40 AM EST Office Visit Dermatology [facility] [address] [facility] [place] [address] Kimberly Qureshi PA-C [address] [facility] [place] [address] Pending Results Name Type Priority Associated Diagnoses [...] this encounter Medical Devices Implanted Type Area Seismograph Shooter Device Identifier Shelf Expiration Date Model / Serial / Lot Mesh 13x9cm Monofilament Hernia Anatomical Medium Left Preshaped With Marking Polypropylene Dextile - [id number] Implanted:Qty: 1 on 01/19/2024 by Doron Torres MD at OR [facility] Left: Groin COVIDIEN 11/16/2027 [id number] / / [id number] documented as of this encounter Visit Diagnoses [...] Advance Directives occurred with: Patient Care Teams Wastewater Project Manager Relationship Specialty Start Date End Date Hira Harvey DO [address] [place] [address] PCP - General Family Medicine 06/22/20 documented as of this encounter
--- OUTSIDE RECORDS SUMMARY | 2024-04-03 22:59 | External Medical Summary ---
Author Name Unknown Address Unknown Organization [id number]:[facility] [place] [address] [facility] [address] [place] [id number] Laboratory Report Ordering Provider Test Date Status AN[address] 04/01/2024 10:50:47 Final Observation Date Value Abnormality Reference (Units) Status Bacteria identified in Specimen by Culture 04/01/2024 10:50:47 No Aeromonas species or Plesiomonas species isolated. Final Test: Gastrointestinal Patho gen Panel Culture
Specimen Source: Stool
Specimen Type: Stool
Specimen Date: 04/01/2024 1050
Result Date: 04/03/2024 1303
Result Status: Final result
Resulting Lab: [facility]
[address]
[place] [id number]

CULTURE

No Aeromonas species or Plesiomonas species isolated.

null Performing Location [facility] [place] - [address] [place] [id number]
--- OUTSIDE RECORDS SUMMARY | 2024-04-03 22:59 | External Medical Summary | Summary of Care ---
Author Name Unknown Organization [facility] Address [address] [place] [address] Phone [phone] Care Team Providers Care Real Estate Investment Analyst Name Role Phone Hira Harvey DO Primary Care Provider Reason for Visit * Reason Comments Outpatient Testing Encounter Details Date Type Department Care Team (Late st Contact Info) Description 04/01/2024 10:50 AM EST Laboratory Laboratory, [facility] [address] [place] [address] St, Specimen Drop Off [facility] [address] [place], [place] [phone] LLQ abdominal pain; History of diverticulitis; Gastroesophageal [...] EST Hospital Encounter ENDO OSSC, Endoscopy Room [facility] [address] [place] [phone] Sydnie Epps MD [address] [place] [address] 04/12/2024 1:00 PM EST - 04/12/2024 1:30 PM EST Surgery ENDO OSS, Endoscopy Room [facility] [address] [place] [phone] Sydnie Epps MD [address] [place] [address] COLONOSCOPY FLEXIBLE PROXIMAL DIAGNOSTIC 04/29/2024 11:00 AM EDT Office Visit Gastroenterology, [facility] [address] [place] [address] Lima Page CRNP [address] [place] [address] 05/12/2024 11:15 AM EDT Office Visit Urology Naty Stephanie Watkins [address] [place] [address] Joaquín Torres MD [address] [place] [address] 06/06/2024 9:20 AM EDT Office Visit Neurology [facility] 200 [facility] [place] [address] Renetta Dow MD 200 [facility] [place] [address] 06/24/2024 3:30 PM EDT Office Visit Urology, [place] [address] [place], [place] [phone] Juan Miguel Manley MD [address] [place], [place] [phone] 07/15/2024 7:45 AM EDT Office Visit MOHS Surgery [facility] 200 [place] [address] Eileen Deluca MD 200 [facility] [place] [address] 09/15/2024 8:00 AM EDT Office Visit Family Practice [facility] 132 [facility] [address] Deanna Lujan CRNP 132 [facility] [address] 02/02/2025 9:40 AM EST Office Visit Dermatology [facility] 200 [facility] [place] [address] Kimberly Qureshi PA-C 200 [facility] [place] [address] Pending Results Name Type Priority Associated Diagnoses [...] this encounter Medical Devices Implanted Type Area Tools Administrator Device Identifier Shelf Expiration Date Model / Serial / Lot Mesh 13x9cm Monofilament Hernia Anatomical Medium Left Preshaped With Marking Polypropylene Dextile - [id number] Implanted:Qty: 1 on 01/19/2024 by Doron Torres MD at OR [facility] Left: Groin COVIDIEN 11/16/2027 [id number] / / [id number] documented as of this encounter Visit Diagnoses [...] Advance Directives occurred with: Patient Care Teams Real Estate Investment Analyst Relationship Specialty Start Date End Date Hira Harvey DO [address] [place] [address] PCP - General Family Medicine 06/22/20 documented as of this encounter
--- OUTSIDE RECORDS SUMMARY | 2024-04-03 23:00 | External Medical Summary | Summary of Care ---
Author Name Unknown Organization [facility] Address [address] [place] [address] Phone [phone] Care Team Providers Care Ground Host/Hostess Name Role Phone Hira Harvey DO Primary Care Provider Encounter Details Date Type Department Care Team (Late st Contact Info) Description 03/17/2024 Orders Only Family Practice [facility] [address] [facility] [place] [address] Hira Harvey DO 132 [facility] [address] Allergies Active Allergy Reactions Criticality Noted Date Comments Ibuprofen Hives 01/19/2024 documented as of this encounter (statuses as of 03/17/2024) Medications TYLENOL 8 HOUR 650 MG PO [...] bedtime for spasticity as needed, Reported on 02/15/2024 Vitamin B Complex Oral Tablet Take 1 [...] 2500 per day 1 Capsule 3 Active Famotidine 20 MG Oral Tablet (Pepcid)Indicati ons:Gastroesopha geal reflux disease without esophagitis Take 1 Tablet by mouth in the morning and 1 Tablet before bedtime. 180 Tablet 3 4 Active Additional Information Patient taking differently:20 mg OralPRN, Reported on 02/15/2024 Amoxicillin 875 MG Oral Tablet Take 1 Tablet by mouth. Take prior to dental procedures 4 Active Tums Smoothies 750 MG Oral Tablet Chewable (calcium CARBonate) Take 300 mg by mouth as needed. 4 Active Cholecalciferol 50 MCG (1999 UT) Oral Capsule Take 1 Capsule by mouth in the morning. 4 Active Esomeprazole Magnesium 20 MG Oral Capsule Delayed Release (NexIUM)Indicati ons:Gastroesopha geal reflux disease without esophagitis Take 1 Capsule by mouth in the morning. 1 hour before the first meal of the day. 90 Capsule 3 4 Active Additional Information Patient taking differently:20 mg OralHS, (No instructions reported), Reported on 02/15/2024 Mylanta Coat & Cool 1200-270-80 MG/10ML Oral [...] to 15 doses. 10 Tablet 4 Active Additional Information Patient not taking.Reported on 02/15/2024 HYDROcodone-Acet aminophen 7.5-325 MG Oral TabletIndication s:Pain due to dental caries Take 1 Tablet by mouth 2 times a day as needed for Pain, Severe. 30 Tablet 5 Active Ciprofloxacin HCl 500 MG Oral Tablet (Cipro) 5 Active metroNIDAZOLE 500 MG Oral Tablet (Flagyl) 5 Active Sucralfate 1 GM Oral Tablet (Carafate) 5 Active documented as of this encounter (statuses as of 03/17/2024) Active Problems Problem Noted Date Diagnosed Date Recurrent left inguinal hernia 12/16/2023 Elevated prostate specific antigen (PSA) 023 History of nonmelanoma skin cancer 05/20/2022 Overview (05/20/2022): Hx of BCC R temporal scalp s/p Mohs 05/07, L upper arm s/p C&C 04/2021, L baptist s/p Mohs 2020, SCC dorsal R hand s/p Mohs 2020 Renal cyst 10/16/2017 Overview (10/16/2017): 09/02 5cm R cyst, 10/03 4.8cm - advised 1 year FU with US Dyslipidemia 03/01/2001 Gastroesophageal reflux disease without esophagi tis Multiple sclerosis documented as of this encounter (statuses as of 03/17/2024) Resolved Problems Problem Noted Date Diagnosed Date [...] as of this encounter (statuses as of 03/17/2024) Immunizations Name Administration Dates Next Due HEP [...] ages 0-17 years) Not on file 03/09/2024 Sex and Gender Information Value Date [...] Upcoming Encounters Date Type Department Care Team (Late st Contact Info) Description 03/17/2024 8:20 AM EST Office Visit Family Practice [facility] [address] [place] [address] Hira Harvey DO [address] [place] [address] Arrived 03/22/2024 1:00 PM EST Imaging [facility], a service of [address] [place] [address] 05/12/2024 11:15 AM EDT Office Visit Urology Stephanie Sam [address] [place] [place] [address] Joaquín Torres MD [address] [place] [address] 06/06/2024 9:20 AM EDT Office Visit Neurology [facility] [address] [facility] [place] [address] Renetta Dow MD [address] [facility] [place] [address] 07/15/2024 7:45 AM EDT Office Visit MOHS Surgery [facility] [address] [facility] [place] [address] Eileen Deluca MD [address] [facility] [place] [address] 02/02/2025 9:40 AM EST Office Visit Dermatology [facility] [address] [facility] [place] [address] Kimberly Qureshi PA-C [address] [place], [place] [address] Health Maintenance Due Date Last Done Comments [...] this encounter Medical Devices Implanted Type Area Adjunct Instructor Chemistry Device Identifier Shelf Expiration Date Model / Serial / Lot Mesh 13x9cm Monofilament Hernia Anatomical Medium Left Preshaped With Marking Polypropylene Dextile - [id number] Implanted:Qty: 1 on 01/19/2024 by Doron Torres MD at OR [facility] Left: Groin COVIDIEN 11/16/2027 [id number] / / [id number] documented as of this encounter Procedures Procedure Name Priority Date/Time Associated Diagnosis Comments CT ABD/PELVIS W IV AND W ORAL CONTRAST Routine 03/15/2024 documented in this encounter Results * CT ABD/PELVIS W IV AND W ORAL CONTRAST (03/15/2024) Anatomical Region Laterality Modality Body, Abdomen, Pelvis Other 03/15/2024 us Romeo Tafoya DO RAD CT Final Resu lt documented in this encounter Advance Directives * Full Code (Latest Code Status on File) Date Activated Date Inactivated Comments 01/19/2024 7:23 AM 01/19/2024 2:22 PM This order r eflects the patients wishes and were consensually agreed upon. Question Answer Comments Discussion of Advance Directives occurred with: Patient Care Teams Ground Host/Hostess Relationship Specialty Start Date End Date Hira Harvey DO 132 [facility] [place] [address] PCP - General Family Medicine 06/22/20 documented as of this encounter
--- OUTSIDE RECORDS SUMMARY | 2024-04-03 23:00 | External Medical Summary | Summary of Care ---
Author Name Unknown Organization [facility] Address [address] [place] [address] Phone [phone] Care Team Providers Care Junior Paralegal Name Role Phone Hira Harvey DO Primary Care Provider Reason for Visit * Reason Onset Date Comments Patient Instructions 03/23/2024 Encounter Details Date Type Department Care Team (Late st Contact Info) Description 03/23/2024 Telephone Gastroenterology, [facility] [place] [address] Lima Page CRNP 132 [facility] [place] [address] Patient Instructions Allergies Active Allergy Reactions Criticality Noted Date Comments Ibuprofen Hives 01/19/2024 documented as of this encounter (statuses as of 03/23/2024) Medications TYLENOL 8 HOUR 650 MG PO [...] as of this encounter (statuses as of 03/23/2024) Active Problems Problem Noted Date Diagnosed Date Recurrent left inguinal hernia 12/16/2023 Elevated prostate specific antigen (PSA) 023 History of nonmelanoma skin cancer 05/20/2022 Overview (05/20/2022): Hx of BCC R temporal scalp s/p Mohs 05/07, L upper arm s/p C&C 04/2021, L confucianism s/p Mohs 2020, SCC dorsal R hand s/p Mohs 2020 Renal cyst 10/16/2017 Overview (10/16/2017): 09/02 5cm R cyst, 10/03 4.8cm - advised 1 year FU with US Dyslipidemia 03/01/2001 Gastroesophageal reflux disease without esophagi tis Multiple sclerosis documented as of this encounter (statuses as of 03/23/2024) Resolved Problems Problem Noted Date Diagnosed Date [...] as of this encounter (statuses as of 03/23/2024) Immunizations Name Administration Dates Next Due HEP [...] Department Care Team (Latest Contact Info) Description 03/24/2024 10:35 AM EST Imaging Cardiac Studies, [facility] [address] [place] [address] 04/12/2024 1:00 PM EST Hospital Encounter ENDO OSSC, Endoscopy Room [facility] [address] [place] [phone] Sydnie Epps MD [address] [place] [address] 04/12/2024 1:00 PM EST - 04/12/2024 1:30 PM EST Surgery ENDO OSSC, Endoscopy Room [facility] [address] [place] [address] Sydnie Epps MD [address] [place] [address] COLONOSCOPY FLEXIBLE PROXIMAL DIAGNOSTIC 04/29/2024 11:00 AM EDT Office Visit Gastroenterology, [facility] [address] [place] [address] Lima Page CRNP [address] [place] [address] 05/12/2024 11:15 AM EDT Office Visit Urology Naty WatkinsStephanie [address] [place] [address] Joaquín Torres MD [address] [place] [address] 06/06/2024 9:20 AM EDT Office Visit Neurology [facility] 200 [facility] [place] [address] Renetta Dow MD 200 [facility] [place] [address] 07/15/2024 7:45 AM EDT Office Visit MOHS Surgery [facility] [address] [place] [address] Eileen Deluca MD 200 [facility] [place] [address] 09/15/2024 8:00 AM EDT Office Visit Family Practice [facility] [address] [place] [address] Deanna Lujan CRNP [address] [place] [address] 02/02/2025 9:40 AM EST Office Visit Dermatology [facility] 200 [facility] [place] [address] Kimberly Qureshi PA-C [address] [place] [address] Scheduled Procedures Name Priority Associated Diagnoses Date/Ti [...] this encounter Medical Devices Implanted Type Area Toll Line Mechanic Device Identifier Shelf Expiration Date Model / Serial / Lot Mesh 13x9cm Monofilament Hernia Anatomical Medium Left Preshaped With Marking Polypropylene Dextile - [id number] Implanted:Qty: 1 on 01/19/2024 by Doron Torres MD at OR [facility] Left: Groin COVIDIEN 11/16/2027 [id number] / / [id number] documented as of this encounter Advance Directives * Full Code (Latest Code Status on File) Date Activated Date Inactivated Comments 01/19/2024 7:23 AM 01/19/2024 2:22 PM This order r eflects the patients wishes and were consensually agreed upon. Question Answer Comments Discussion of Advance Directives occurred with: Patient Care Teams Junior Paralegal Relationship Specialty Start Date End Date Hira Harvey DO [address] [place] [address] PCP - General Family Medicine 06/22/20 documented as of this encounter
--- OUTSIDE RECORDS SUMMARY | 2024-04-03 23:00 | External Medical Summary | Summary of Care ---
Author Name Unknown Organization [facility] Address [address] [place] [address] Phone [phone] Care Team Providers Care Scientologist Name Role Phone Hira Harvey DO Primary Care Provider Reason for Referral * Precert (Diagnostic Medical) (Within 10 days (routine)) - Authorized Specialty Diagnoses / Procedures Referred By Jonathan taylor Referred To Contact Cardiac Studies Diagnoses Multiple sclerosis (HCC) Other chest pain Procedures ECHO, STRESS (DOBUTAMINE) W/CONTRAST Hira Harvey DO [address] [place] [address] Phone: tel: fax: Referral ID Status Reason Start Date Expiration Date V isits Requested Visits Authorized [id number] Authorized Precert 03/17/2024 999 999 * Evaluate & Treat - Unlimited Visits (Within 3 days (urgent)) - Authorized Specialty Diagnoses / Procedures Referred By Jonathan taylor Referred To Contact Gastroenterology Diagnoses Gastroesophageal reflux disease without esophagitis Diverticulitis of colon LLQ abdominal pain Hira Harvey DO [address] [place] [address] Phone: tel: fax: Referral ID Status Reason Start Date Expiration Date Visits Requested Visits Authorized [id number] Authorized Specialty Services Required 03/17/2024 999 999 Question Answer Referral Priority Within 3 days (urgent) Where should this appointment be scheduled? [facility] For what condition is the patient being referred? All Gastro Conditions Reason for Visit * Reason Comments Emergency Department Follow-Up Pt here f or ER F/U. Pt seen at [facility] in [place] on 03/15/2024. Pt continues Cipro and flagyl. Pt states he feels that heart is sometimes racing and feelings of "gas" or chest pressure behind breast bone. Encounter Details Date Type Department Care Team (Latest Contact Info) Description 03/17/2024 8:20 AM EST Office Visit Family Practice [facility] [address] [place] [address] Hira Harvey DO [address] [place] [address] Diverticulitis of colon*; Multiple sclerosis (HCC); Gastroesophageal reflux disease without esophagitis; Dyslipidemia; LLQ abdominal pain; MS (multiple sclerosis) (HCC); Other chest pain Allergies Active Allergy Reactions Criticality Noted Date Comments Ibuprofen Hives 01/19/2024 documented as of this encounter (statuses as of 03/17/2024) Medications TYLENOL 8 HOUR 650 MG PO TBCRIndications: Multiple sclerosis (HCC) 2 TABLETS NEEDED 10 Tab 0 06/17/19 12 Active Multiple Vitamins-Mineral s (MULTIVITAMIN GUMMIES ADULT) chewable tablet Take 1 Tablet by mouth in the morning. Active polyethylene glycol 3350 (MIRALAX) packet Take 1 Packet by mouth in the morning. Active diazepam (VALIUM) 5 MG Tablet 1/2 to 1 tab at bedtime for spasticity 90 Tab 1 04/29/19 19 Active Additional Information Patient taking differently: 5 [...] IN EACH NOSTRIL DAILY 48 g 3 05/23/19 22 Active Vitamin D (Ergocalciferol) 50 MCG (1999 UT) Oral Capsule Taking 2500 per day 1 Capsule 08/26/19 23 Active Famotidine 20 MG Oral Tablet (Pepcid)Indicati ons:Gastroesopha geal reflux disease without esophagitis Take 1 Tablet by mouth in the morning and 1 Tablet before bedtime. 180 Tablet 3 05/15/19 24 Active Additional Information Patient taking differently:20 mg OralPRN, Reported on 03/17/2024 Amoxicillin 875 MG Oral Tablet Take 1 Tablet by mouth. Take prior to dental procedures 04/27/19 24 Active Tums Smoothies 750 MG Oral Tablet Chewable (calcium CARBonate) Take 300 mg by mouth as needed. 03/02/19 24 Active Cholecalciferol 50 MCG (1999 UT) Oral Capsule Take 1 Capsule by mouth in the morning. 03/02/19 24 Active Mylanta Coat & Cool 1200-270-80 MG/10ML Oral Suspension (Adrian Carb-Mag Hydrox-Simeth) Take by mouth. Active Rosuvastatin Calcium 5 MG Oral Tablet (Crestor)Indicat ions:Mixed dyslipidemia TAKE 1 TABLET IN THE MORNING 90 Tablet 1 12/24/19 24 Active oxyCODONE-Acetam inophen 5-325 MG Oral Tablet (Percocet) Take 1 Tablet by mouth every 4 hours as needed for Pain, Severe for up to 15 doses. 10 Tablet 01/19/20 24 Active HYDROcodone-Acet aminophen 7.5-325 MG Oral TabletIndication s:Pain due to dental caries Take 1 Tablet by mouth 2 times a day as needed for Pain, Severe. 30 Tablet 02/17/19 25 Active Ciprofloxacin HCl 500 MG Oral Tablet (Cipro) 03/15/19 25 Active metroNIDAZOLE 500 MG Oral Tablet (Flagyl) 03/15/19 25 Active Sucralfate 1 GM Oral Tablet (Carafate) 03/15/19 25 Active Esomeprazole Magnesium 20 MG Oral Capsule Delayed Release (NexIUM)Indicati ons:Gastroesopha geal reflux disease without esophagitis Take 1 Capsule by mouth in the morning and 1 Capsule before bedtime. 180 Capsule 3 03/17/19 25 Active hydrOXYzine HCl 10 MG Oral Tablet (Atarax) Take 1 Tablet by mouth every 6 hours as needed for Anxiety. 90 Tablet 1 03/17/19 25 Active Esomeprazole Magnesium 20 MG Oral Capsule Delayed Release (NexIUM)Indicati ons:Gastroesopha geal reflux disease without esophagitis Take 1 Capsule by mouth in the morning. 1 hour before the first meal of the day. 90 Capsule 3 05/28/19 24 025 Discontin ued(Refil l) documented as of this encounter (statuses as of 03/17/2024) Active Problems Problem Noted Date Diagnosed Date Recurrent left inguinal hernia 12/16/2023 Elevated prostate specific antigen (PSA) 023 History of nonmelanoma skin cancer 05/20/2022 Overview (05/20/2022): Hx of BCC R temporal scalp s/p Mohs 05/07, L upper arm s/p C&C 04/2021, L congregation s/p Mohs 2020, SCC dorsal R hand [...] Passive Smoke Exposure: Never Smokeless Tobacco: Never Tobacco Cessation:Counseling Given: Not Answered Alcohol Use Standard Drinks/Week Comments Yes 0 [...] 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 Assessment and Plan Assessment & Plan Facial Pain and Hypertension Patient reports facial pain and numbness on one side, along with elevated blood pressure. Unclear if these symptoms are related to dental issues, MS flare, or cardiac issues. -Order EKG today to assess cardiac function. -Consult GI for possible scope. -Consider stress echocardiogram and cardiology follow-up. Gastrointestinal Issues Patient reports improvement in GI symptoms with Cipro and Flagyl. -Continue Nexium twice daily. -Consider GI consultation for possible scope. Prostate Cancer Surveillance Elevated PSA noted, with a scan scheduled for 03/22/2024. -Continue current surveillance plan. Multiple Sclerosis Patient reports recent MS flare. Unable to take steroids due to concurrent infections. -Continue current management plan. Dental Issues Patient reports ongoing dental issues and pain, possibly contributing to facial pain and hypertension. -Continue Flagyl for dental infection coverage. General Health Maintenance -Continue current medications as prescribed. -Encourage patient to resume exercise as tolerated. History of Present Illness Doron Davey is a 68 year old male that presents for Emergency Department Follow-Up (Pt here for ER F/U. Pt seen at [facility] on 03/15/2024. Pt continues Cipro and flagyl. Pt states he feels that heart is sometimes racing and feelings of "gas" or chest pressure behind breast bone.) History of Present Illness The patient, with a history of multiple sclerosis, presents with facial numbness and pain, which heinitially thought was related to a tooth infection. He reports that the pain is localized to one side of his face and extends into his sinus. He also reports experiencing numbness and tingling on thesame side of his face. The patient has been on penicillin for seven days for the tooth infection, but he believes the infection has not cleared. He also reports having chest discomfort and hypertension, which he believes is related to his facial pain. In addition to these symptoms, the patient also reports gastrointestinal issues. He has been on Cipro and Flagyl, which he reports has been helping with his gastrointestinal symptoms. However, he also reports sporadic bowel movements. The patient also has a history of prostate issues and has a scheduled scan for an elevated PSA level. He also reports having had a rough night prior to the visit, with what he thought was a heart attack. He reports feeling a pressure on his chest and experiencing pain in his jaw. He also reports that his blood pressure was elevated during this episode. The patient also mentions having had multiple surgeries in the past year, including a prostate biopsy, two hernia repairs, and a root canal. He reports that the root canal was the most painful experience he's had. He also mentions having had an MS flare and diverticulitis in the past year. Physical Exam Vitals: 03/17/24 0819 Temp: 97 F (36.1 C) Pulse: 74 Resp: 16 SpO2: 99% BP: 188/86 Physical Exam Constitutional: Appearance: Normal appearance. HENT: Head: Normocephalic and atraumatic. Eyes: Extraocular Movements: Extraocular movements intact. Pupils: Pupils are equal, round, and reactive to light. Cardiovascular: Rate and Rhythm: Regular rhythm. Bradycardia present. Pulmonary: Effort: Pulmonary effort is normal. Breath sounds: Normal breath sounds. Abdominal: General: Abdomen is flat. Palpations: Abdomen is soft. Tenderness: There is abdominal tenderness. Musculoskeletal: General: Normal range of motion. Skin: General: Skin is warm. Neurological: General: No focal deficit present. Mental Status: He is alert and oriented to person, place, and time. Psychiatric: Mood and Affect: Mood normal. Behavior: Behavior normal. Wrap-Up Follow Up: Return in about 3 months (around 06/15/2024). Time: Total time today was 44 minutes excluding any time spent in the performance of separately billed services. Text in this note was generated using an ambient documentation service. I discussed the use of a device to record and summarize our discussion today. All persons present during the encounter consented to its use. documented in this encounter Plan of Treatment Upcoming Encounters Date Type Department Care Team (Late st Contact Info) Description 03/22/2024 1:00 PM EST Imaging [facility], a service of [address] [place] [address] 03/23/2024 10:30 AM EST Office Visit Gastroenterology, [facility] [address] [place] [address] Lima Page CRNP [address] [place] [address] 03/24/2024 10:35 AM EST Imaging Cardiac Studies, [facility] [address] [place] [address] 05/12/2024 11:15 AM EDT Office Visit Urology Stephanie Sam [address] [place] [address] Joaquín Torres MD [place] [address] 06/06/2024 9:20 AM EDT Office Visit Neurology [facility] [address] [place] [address] Renetta Dow MD [address] [facility] [place], [place] [address] 07/15/2024 7:45 AM EDT Office Visit MOHS Surgery [facility] [address] [place], [place] [address] Eileen Deluca MD [address] [place] [address] 09/15/2024 8:00 AM EDT Office Visit Family Practice [facility] [address] [facility] [place] [address] Deanna Lujan CRNP [address] [place] [address] 02/02/2025 9:40 AM EST Office Visit Dermatology [facility] [address] [facility] [place], [place] [address] Kimberly Qureshi PA-C [address] [facility] [place], [place] [address] Scheduled Orders Name Type Priority Associated Diagnoses Orde r Schedule EKG EKG Routine Other chest pain Expected: 03/17/2024 (Approximate), Expires: 04/15/2025 ECHO, STRESS (DOBUTAMINE) W/CONTRAST Echocardiology Routine Multiple sclerosis (HCC) Other chest pain Expected: 03/17/2024, Expires: 04/15/2025 Scheduled Referrals Name Type Priority Associated Diagnoses Order Schedule ADULT GASTROENTEROLOGY REFERRAL OP Referral Within 3 days (urgent) Gastroesophageal reflux disease without esophagitis Diverticulitis of colon LLQ abdominal pain Ordered: 03/17/2024 Health Maintenance Due Date Last Done Comments [...] this encounter Medical Devices Implanted Type Area Cogeneration Technician Device Identifier Shelf Expiration Date Model / Serial / Lot Mesh 13x9cm Monofilament Hernia Anatomical Medium Left Preshaped With Marking Polypropylene Dextile - [id number] Implanted:Qty: 1 on 01/19/2024 by Doron Torres MD at OR [facility] Left: Groin COVIDIEN 11/16/2027 [id number] / / [id number] documented as of this encounter Visit Diagnoses Diagnosis Diverticulitis of colon- Primary Diverticulitis of colon (without mention of hemorrhage) Multiple sclerosis (HCC) Multiple sclerosis Gastroesophageal reflux disease without esophagitis Esophageal reflux Dyslipidemia Other and unspecified hyperlipidemia LLQ abdominal pain Abdominal pain, left lower quadrant MS (multiple sclerosis) (HCC) Multiple sclerosis Other chest pain documented in this encounter Advance Directives * Full Code (Latest Code Status on File) Date Activated Date Inactivated Comments 01/19/2024 7:23 AM 01/19/2024 2:22 PM This order r eflects the patients wishes and were consensually agreed upon. Question Answer Comments Discussion of Advance Directives occurred with: Patient Care Teams Scientologist Relationship Specialty Start Date End Date Hira Harvey DO [address] [place] [address] PCP - General Family Medicine 06/22/20 documented as of this encounter
--- OUTSIDE RECORDS SUMMARY | 2024-04-03 23:00 | External Medical Summary | Summary of Care ---
Author Name Unknown Organization [facility] Address [address] [place] [address] Phone [phone] Care Team Providers Care Development Representative Name Role Phone Hira Harvey DO Primary Care Provider Encounter Details Date Type Department Care Team (Late st Contact Info) Description 02/24/2024 Telephone Otolaryngology [facility] [address] [email or web address] [place] [address] Aidan Han DO [address] [facility] [place] [address] Allergies Active Allergy Reactions Criticality Noted Date Comments Ibuprofen Hives 01/19/2024 documented as of this encounter (statuses as of 02/24/2024) Medications TYLENOL 8 HOUR 650 MG PO [...] for Pain, Severe. 30 Tablet 5 Active documented as of this encounter (statuses as of 02/24/2024) Active Problems Problem Noted Date Diagnosed Date Recurrent left inguinal hernia 12/16/2023 Elevated prostate specific antigen (PSA) 023 History of nonmelanoma skin cancer 05/20/2022 Overview (05/20/2022): Hx of BCC R temporal scalp s/p Mohs 05/07, L upper arm s/p C&C 04/2021, L anabaptism s/p Mohs 2020, SCC dorsal R hand s/p Mohs 2020 Renal cyst 10/16/2017 Overview (10/16/2017): 09/02 5cm R cyst, 10/03 4.8cm - advised 1 year FU with US Dyslipidemia 03/01/2001 Gastroesophageal reflux disease without esophagi tis Multiple sclerosis documented as of this encounter (statuses as of 02/24/2024) Resolved Problems Problem Noted Date Diagnosed Date [...] as of this encounter (statuses as of 02/24/2024) Immunizations Name Administration Dates Next Due HEP [...] Recorded PHQ Adult Total Score 0 07/12/2020 Sex and Gender Information Value Date Recorded Sex Assigned at Male 06/10/2022 3:12 PM EDT Legal Sex Male 5:43 AM EST Gender Identity Male 06/10/2022 3:12 PM EDT Sexual Orientation Straight 06/10/2022 3: 12 PM EDT 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 No further workup needed atthis time. Aidan Han DO, [facility] [employer], Department of Otolaryngology-Head and Neck Surgery [facility], [place] 02/24/2024 8:19 AM documented in this encounter Plan of Treatment Upcoming Encounters Date Type Department Care Team (Late st Contact Info) Description 03/09/2024 2:00 PM EST Office Visit General Surgery, [facility] [address] [place] [address] Doron Torres MD [address] [place] [address] 03/17/2024 8:20 AM EST Office Visit Family Practice [facility] [address] [place] [address] Hira Harvey DO [address] [place] [address] 03/22/2024 1:00 PM EST Imaging [facility], a service of [facility] [address] [facility] [place] [address] 05/12/2024 11:15 AM EDT Office Visit Urology Stephanie Sam [address] [place] [address] Joaquín Torres MD [address] [place] [address] 06/06/2024 9:20 AM EDT Office Visit Neurology [facility] [address] [facility] [address] [place] [address] Renetta Dow MD 200 [facility] [place] [address] 07/15/2024 7:45 AM EDT Office Visit MOHS Surgery [facility] [address] [place] [address] Eileen Deluca MD 200 [facility] [place] [address] 02/02/2025 9:40 AM EST Office Visit Dermatology [facility] [address] [facility] [place] [address] Kimberly Qureshi PA-C [address] [facility] [place] [address] Health Maintenance Due Date Last Done Comments [...] this encounter Medical Devices Implanted Type Area Payroll Services Analyst Device Identifier Shelf Expiration Date Model / Serial / Lot Mesh 13x9cm Monofilament Hernia Anatomical Medium Left Preshaped With Marking Polypropylene Dextile - [id number] Implanted:Qty: 1 on 01/19/2024 by Doron Torres MD at OR [facility] Left: Groin COVIDIEN 11/16/2027 [id number] / / [id number] documented as of this encounter Advance Directives * Full Code (Latest Code Status on File) Date Activated Date Inactivated Comments 01/19/2024 7:23 AM 01/19/2024 2:22 PM This order r eflects the patients wishes and were consensually agreed upon. Question Answer Comments Discussion of Advance Directives occurred with: Patient Care Teams Development Representative Relationship Specialty Start Date End Date Hira Harvey DO [address] [place] [address] PCP - General Family Medicine 06/22/20 documented as of this encounter
--- OUTSIDE RECORDS SUMMARY | 2024-04-03 23:00 | External Medical Summary | Summary of Care ---
Author Name Unknown Organization [facility] Address [address] [place] [address] Phone [phone] Care Team Providers Care Accounts Receivable Specialist Name Role Phone Hira Harvey DO Primary Care Provider Encounter Details Date Type Department Care Team (Late st Contact Info) Description 03/10/2024 Population Health External Data Unspecified Department Allergies Active Allergy Reactions Criticality Noted Date Comments Ibuprofen Hives 01/19/2024 documented as of this encounter (statuses as of 03/10/2024) Medications TYLENOL 8 HOUR 650 MG PO [...] as of this encounter (statuses as of 03/10/2024) Active Problems Problem Noted Date Diagnosed Date Recurrent left inguinal hernia 12/16/2023 Elevated prostate specific antigen (PSA) 023 History of nonmelanoma skin cancer 05/20/2022 Overview (05/20/2022): Hx of BCC R temporal scalp s/p Mohs 05/07, L upper arm s/p C&C 04/2021, L taoism s/p Mohs 2020, SCC dorsal R hand s/p Mohs 2020 Renal cyst 10/16/2017 Overview (10/16/2017): 09/02 5cm R cyst, 10/03 4.8cm - advised 1 year FU with US Dyslipidemia 03/01/2001 Gastroesophageal reflux disease without esophagi tis Multiple sclerosis documented as of this encounter (statuses as of 03/10/2024) Resolved Problems Problem Noted Date Diagnosed Date [...] as of this encounter (statuses as of 03/10/2024) Immunizations Name Administration Dates Next Due HEP [...] Care Team (Late st Contact Info) Description 03/16/2024 3:45 PM EST Office Visit General Surgery, [facility] [address] [place] [address] Doron Torres MD [address] [place] [address] 03/17/2024 8:20 AM EST Office Visit Family Practice [facility] [address] [place] [address] Hira Harvey DO [address] [place] [address] 03/22/2024 1:00 PM EST Imaging [facility], a service of [address] [place] [address] 05/12/2024 11:15 AM EDT Office Visit Urology Stephanie Sam [address] [place] [address] Joaquín Torres MD [address] [place] [address] 06/06/2024 9:20 AM EDT Office Visit Neurology [facility] [address] [facility] [place] [address] Renetta Dow MD [address] [facility] [place] [address] 07/15/2024 7:45 AM EDT Office Visit MOHS Surgery [facility] [address] [place] [address] Eileen Deluca MD [address] [facility] [place] [address] 02/02/2025 9:40 AM EST Office Visit Dermatology [facility] [address] [place] [address] Kimberly Qureshi PA-C [address] [facility] [place] [address] Health Maintenance Due Date Last Done Comments [...] this encounter Medical Devices Implanted Type Area Special Services Director Device Identifier Shelf Expiration Date Model / Serial / Lot Mesh 13x9cm Monofilament Hernia Anatomical Medium Left Preshaped With Marking Polypropylene Dextile - [id number] Implanted:Qty: 1 on 01/19/2024 by Doron Torres MD at OR [facility] Left: Groin COVIDIEN 11/16/2027 [id number] / / [id number] documented as of this encounter Advance Directives * Full Code (Latest Code Status on File) Date Activated Date Inactivated Comments 01/19/2024 7:23 AM 01/19/2024 2:22 PM This order r eflects the patients wishes and were consensually agreed upon. Question Answer Comments Discussion of Advance Directives occurred with: Patient Care Teams Accounts Receivable Specialist Relationship Specialty Start Date End Date Hira Harvey DO [address] [place] [address] PCP - General Family Medicine 06/22/20 documented as of this encounter
--- OUTSIDE RECORDS SUMMARY | 2024-04-03 23:00 | External Medical Summary | Summary of Care ---
Author Name Unknown Organization [facility] Address [address] [place] [address] Phone [phone] Care Team Providers Care Comfort Station Supervisor Name Role Phone Hira Harvey DO Primary Care Provider Reason for Referral * Precert (Diagnostic Medical) (Within 10 days (routine)) - Authorized Specialty Diagnoses / Procedures Referred By Contac t Referred To Contact Cardiac Studies Diagnoses Multiple sclerosis (HCC) Other chest pain Procedures ECHO, STRESS (DOBUTAMINE) W/ PHYSICIAN Hira Harvey DO [address] [place] [address] Phone: tel: fax: Referral ID Status Reason Start Date Expiration Date V isits Requested Visits Authorized [id number] Authorized Precert 03/24/2024 999 999 Reason for Visit * Reason Onset Date Comments Cardiology Study 03/24/2024 Dobutamine Stre ss Test Encounter Details Date Type Department Care Team (Late st Contact Info) Description 03/24/2024 Telephone Family Practice [facility] [address] [place] [address] Hira Harvey DO [address] [place] [address] Cardiology Study (Dobutamine Stress Test) Allergies Active [...] 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 on file Not on file N ot on file documented as of this encounter Miscellaneous Notes * Addendum Note - Franco Li RN - 03/24/2024 10:22 AM ESTAddended by: FRANCO LI on: 03/24/2024 10:22 AM Modules accepted: Orders * Telephone Encounter - Franco Li RN - 03/24/2024 10:09 AM EST Order placed "off site" New order placed Ed Juliano ELLISONsenior market intelligence consultant Testing Nurse documented in this encounter Plan of Treatment Upcoming Encounters Date Type Department Care Team (Latest Contact Info) Description 04/12/2024 1:00 PM EST Hospital En[facility] [place] [phone] Sydnie Epps MD [address] [id number] 04/12/2024 1:00 PM EST - 04/12/2024 1:30 PM EST Surgery ENDO [facility], Endoscopy Room [facility] [address] [facility] [place] [phone] Sydnie Epps MD [address] [address] COLONOSCOPY FLEXIBLE PROXIMAL DIAGNOSTIC 04/29/2024 11:00 AM EDT Office Visit Gastroenterology, [facility] [address] [facility] [place] [address] Lima Page CRNP [facility] [address] 05/12/2024 11:15 AM EDT Office Visit Urology Stephanie Sam [address] [place] [address] Joaquín Torres MD [address] [place] [address] 06/06/2024 9:20 AM EDT Office Visit Neurology [facility] [address] [facility] [place] [address] Renetta Dow [facility] [address] 07/15/2024 7:45 AM EDT Office Visit [facility] [address] Eileen Deluca MD [address] [facility] [place] [address] 09/15/2024 8:00 AM EDT Office Visit Family Practice [facility] [address] [place] [address] Deanna Lujan CRNP [address] [place] [address] 02/02/2025 9:40 AM EST Office Visit Dermatology [facility] [address] [facility] [place] [address] Kimberly Qureshi PA-C [address] [facility] [place] [address] Pending Results Name Type Priority Associated Diagnoses [...] this encounter Medical Devices Implanted Type Area Decorator Hand Device Identifier Shelf Expiration Date Model / Serial / Lot Mesh 13x9cm Monofilament Hernia Anatomical Medium Left Preshaped With Marking Polypropylene Dextile - [id number] Implanted:Qty: 1 on 01/19/2024 by Doron Torres MD at OR [facility] Left: Groin COVIDIEN 11/16/2027 [id number] / / [id number] documented as of this encounter Visit Diagnoses [...] Advance Directives occurred with: Patient Care Teams Comfort Station Supervisor Relationship Specialty Start Date End Date Hira Harvey DO [address] [facility] [place] [address] PCP - General Family Medicine 06/22/20 documented as of this encounter
--- OUTSIDE RECORDS SUMMARY | 2024-04-03 23:00 | External Medical Summary | Summary of Care ---
Author Name Unknown Organization [facility] Address [address] [place] [address] Phone [phone] Care Team Providers Care Cooker Meal Name Role Phone Hira Harvey DO Primary Care Provider Reason for Referral * Precert (Diagnostic Medical) (Within 10 days (routine)) - Authorized Specialty Diagnoses / Procedures Referred By Jonathan taylor Referred To Contact Cardiac Studies Diagnoses Multiple sclerosis (HCC) Other chest pain Procedures ECHO, STRESS (DOBUTAMINE) W/CONTRAST Hira Harvey DO [address] [place] [address] Phone: tel: fax: Referral ID Status Reason Start Date Expiration Date V isits Requested Visits Authorized [id number] Authorized Precert 03/17/2024 999 999 * Evaluate & Treat - Unlimited Visits (Within 3 days (urgent)) - Authorized Specialty Diagnoses / Procedures Referred By Jonathan taylor Referred To Contact Gastroenterology Diagnoses Gastroesophageal reflux disease without esophagitis Diverticulitis of colon LLQ abdominal pain Hira Harvey DO [address] [place] [address] Phone: tel: fax: Referral ID Status Reason Start Date Expiration Date Visits Requested Visits Authorized [id number] Authorized Specialty Services Required 03/17/2024 999 999 Question Answer Referral Priority Within 3 days (urgent) Where should this appointment be scheduled? [facility] For what condition is the patient being referred? All Gastro Conditions Reason for Visit * Reason Comments Emergency Department Follow-Up Pt here f or ER F/U. Pt seen at [facility] in [place] on 03/15/2024. Pt continues Cipro and flagyl. Pt states he feels that heart is sometimes racing and feelings of "gas" or chest pressure behind breast bone. 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 Pt seen at [facility] on 03/15/2024. Pt continues Cipro and [...] Info) Description 03/22/2024 1:00 PM EST Imaging [facility], a service of [address] [place] [address] 03/23/2024 10:30 AM EST Office Visit Gastroenterology, [facility] [address] [place] [address] Lima Page CRNP [address] [place] [address] 03/24/2024 10:35 AM EST Imaging Cardiac Studies, [facility] [address] [place] [address] 05/12/2024 11:15 AM EDT Office Visit Urology Stephanie Sam [address] [place] [address] Joaquín Torres MD [place] [address] 06/06/2024 9:20 AM EDT Office Visit Neurology [facility] [address] [facility] [place] [address] Renetta Dow MD 200 [facility] [place], [place] [address] 07/15/2024 7:45 AM EDT Office Visit MOHS Surgery [facility] [address] [place], [place] [address] Eileen Deluca MD 200 [place] [address] 09/15/2024 8:00 AM EDT Office Visit Family Practice [facility] [address] [facility] [place] [address] Deanna Lujan CRNP [address] [facility] [place] [address] 02/02/2025 9:40 AM EST Office Visit Dermatology [facility] 200 [facility] [place], [place] [address] Kimberly Qureshi PA-C 200 [facility] [place], [place] [address] Scheduled Orders Name Type Priority Associated Diagnoses [...] this encounter Medical Devices Implanted Type Area Nuclear Medicine Technologist Device Identifier Shelf Expiration Date Model / Serial / Lot Mesh 13x9cm Monofilament Hernia Anatomical Medium Left Preshaped With Marking Polypropylene Dextile - [id number] Implanted:Qty: 1 on 01/19/2024 by Doron Torres MD at OR [facility] Left: Groin COVIDIEN 11/16/2027 [id number] / / [id number] documented as of this encounter Visit Diagnoses [...] Advance Directives occurred with: Patient Care Teams Cooker Meal Relationship Specialty Start Date End Date Hira Harvey DO [address] [place] [address] PCP - General Family Medicine 06/22/20 documented as of this encounter
--- OUTSIDE RECORDS SUMMARY | 2024-04-03 23:00 | External Medical Summary | Summary of Care ---
Author Name Unknown Organization [facility] Address [address] [place] [address] Phone [phone] Care Team Providers Care Dog Handler Name Role Phone Hira Harvey DO Primary Care Provider Reason for Visit * Reason Comments Follow Up Pt here to discuss d iverticulitis flare sx. Pt seen at [facility] last Thursday. On Cipro/Flagyl. Pt also taking Carafate/Nexium for possible gastritis. Hx GERD.Pt c/o LLQ pain which resembles diverticulitis. Pt also had an L inguinal hernia repair 01/2024. * Evaluate & Treat - Unlimited Visits (Within 3 days (urgent)) - Authorized Specialty Diagnoses / Procedures Referred By Jonathan taylor Referred To Contact Gastroenterology Diagnoses Gastroesophageal reflux disease without esophagitis Diverticulitis of colon LLQ abdominal pain Hiar Harvey DO [address] [place] [address] Phone: tel: fax: Referral ID Status Reason Start Date Expiration Date Visits Requested Visits Authorized [id number] Authorized Specialty Services Required 03/17/2024 [id number] Encounter Details Date Type Department Care Team (Late st Contact Info) Description 03/23/2024 10:30 AM EST Office Visit Gastroenterology, [facility] [address] [place] [address] Lima Page CRNP [address] [place] [address] LLQ abdominal pain*; History of diverticulitis; Diarrhea, unspecified type; Gastroesophageal reflux disease, unspecified whether esophagitis present Allergies Active Allergy Reactions Criticality Noted Date Comments Ibuprofen Hives 01/19/2024 documented as of this encounter (statuses as of 03/23/2024) Medications TYLENOL 8 HOUR 650 MG PO TBCRIndications :Multiple sclerosis (HCC) 2 TABLETS NEEDED 10 Tab 0 06/17/19 12 Active Multiple Vitamins-Minera ls (MULTIVITAMIN GUMMIES ADULT) chewable tablet Take 1 [...] Active Fluticasone Propionate 50 MCG/ACT Nasal Suspension (Flonase)Indica tions:ETD (Eustachian tube dysfunction), left USE 2 SPRAYS IN EACH NOSTRIL DAILY 48 g 3 05/23/19 22 Active Vitamin D (Ergocalciferol ) 50 MCG (2000 UT) Oral Capsule Taking 2500 per day 1 Capsule 08/26/19 23 Active Amoxicillin 875 MG Oral Tablet Take 1 Tablet by mouth. Take prior to dental procedures 04/27/19 24 Active Tums Smoothies 750 MG Oral Tablet Chewable (calcium CARBonate) Take 300 mg by mouth as needed. 03/02/19 24 Active Cholecalciferol 50 MCG (2000 UT) Oral Capsule Take 1 Capsule by mouth in the morning. 03/02/19 24 Active Mylanta Coat & Cool 1200-270-80 MG/10ML Oral Suspension (Adrian Carb-Mag Hydrox-Simeth) Take by mouth. Active Rosuvastatin Calcium 5 MG Oral Tablet (Crestor)Indica tions:Mixed dyslipidemia TAKE 1 TABLET IN THE MORNING 90 Tablet 1 12/24/19 24 Active oxyCODONE-Aceta minophen 5-325 MG Oral Tablet (Percocet) Take 1 Tablet by mouth every 4 hours as needed for Pain, Severe for up to 15 doses. 10 Tablet 01/19/20 24 Active HYDROcodone-Renard taminophen 7.5-325 MG Oral TabletIndicatio ns:Pain due to dental caries Take 1 Tablet by mouth 2 times a day as needed for Pain, Severe. 30 Tablet 02/17/19 25 Active Ciprofloxacin HCl 500 MG Oral Tablet (Cipro) 03/15/19 25 Active metroNIDAZOLE 500 MG Oral Tablet (Flagyl) 03/15/19 25 Active Sucralfate 1 GM Oral Tablet (Carafate) 03/15/19 25 Active hydrOXYzine HCl 10 MG Oral Tablet (Atarax) Take 1 Tablet by mouth every 6 hours as needed for Anxiety. 90 Tablet 1 03/17/19 25 Active Esomeprazole Magnesium 20 MG Oral Capsule Delayed Release (NexIUM)Indicat ions:LLQ abdominal pain,History of diverticulitis, Gastroesophagea l reflux disease, unspecified whether esophagitis present Take 2 Capsules by mouth daily before breakfast. 180 Capsule 3 03/23/19 25 Active Famotidine 20 MG Oral Tablet (Pepcid)Indicat ions:LLQ abdominal pain,History of diverticulitis, Gastroesophagea l reflux disease, unspecified whether esophagitis present Take 1 Tablet by mouth at bedtime. 90 Tablet 3 03/23/19 25 Active Famotidine 20 MG Oral Tablet (Pepcid)Indicat ions:Gastroesop hageal reflux disease without esophagitis Take 1 Tablet by mouth in the morning and 1 Tablet before bedtime. 180 Tablet 3 05/15/19 24 025 Discontinued Esomeprazole Magnesium 20 MG Oral Capsule Delayed Release (NexIUM)Indicat ions:Gastroesop hageal reflux disease without esophagitis Take 1 Capsule by mouth in the morning and 1 Capsule before bedtime. 180 Capsule 3 03/17/19 25 025 Discontinued documented as of this encounter (statuses as of 03/23/2024) Active Problems Problem Noted Date Diagnosed Date Recurrent left inguinal hernia 12/16/2023 Elevated prostate specific antigen (PSA) 023 History of nonmelanoma skin cancer 05/20/2022 Overview (05/20/2022): Hx of BCC R temporal scalp s/p Mohs 05/07, L upper arm s/p C&C 04/2021, L buddhism s/p Mohs 2020, SCC dorsal R hand [...] Sign Reading Time Taken Comments Blood Pressure 142/78 03/23/2024 10:21 AM EST Pulse - - Temperature 36.7 C (98.1 F) 03/23/2024 10:[address] Respiratory Rate - - Oxygen Saturation - - Inhaled Oxygen Concentration - - Weight 63.5 kg (140 lb) 03/23/2024 10:21 AM EST Height - - Body Mass Index 23.3 02/15/2024 9:05 AM EST documented in this encounter Patient Instructions * Patient Instructions* Lima Page CRNP - 03/23/2024 10:45 AM EST Take Nexium 40 mg daily in the morning prior to breakfast Take Pepcid 20 mg nightly Hold carafate Do stool studies CT scan Colonoscopy documented in this encounter Progress Notes * Lima Page CRNP - 03/23/2024 10:30 AM EST Gastroenterology Outpatient Visit 03/23/2024 Referring physician:Hira Harvey DO PCP: Hira Harvey DO Past medical history: History of recurrent diverticulitis (x7 occurences, first 2015) History of epiploic appendagitis GERD Status post laparoscopic recurrent left inguinal hernia repair with mesh on 01/19/2024 Multiple sclerosis CC: Left lower quadrant pain HPI: Very pleasant 68-year-old male presents today to the Gastroenterology for an acute appointment after being referred back by his PCP due to concerns regarding left lower quadrant pain. Patient carries a history of recurrent diverticulitis. This is his 7th occurrence of diverticulitis-- prior to this episode he noted from April to June 2023 was his last occurrence. At 1st he was placed on Augmentin which did not improve symptoms and thenhe was switched to Cipro/Flagyl which did eventually resolve the diverticulitis. Most recently on 03/12/2024 he started develop a dull aching left lower quadrant pain that was reminiscent of prior diverticulitis episodes. Symptoms worsened and eventually on 03/15/2024 he presented to [facility] emergency department. CTAP with IV contrast only performed--patient was noted to have diverticulosis without diverticulitis. He was however placed on Cipro and Flagyl by the ED. He notes that normally his pain and diarrhea symptoms resolve however while his pain is milder it still remains in his bowels are described as sporadic and loose noting about 5-6 bowel movements a day. No blood in the stools. He is also noticing some epigastric discomfort/gastritis. Previous GI workup: Colonoscopy: 06/2022--few large and small mouth diverticula found in the sigmoid and descending colon. Ic valve was lipomatous and biopsied. Three sessile polyps found in the transverse and ascending colon. 2-3 mmin size. Removed. Internal hemorrhoids. 2018-- The examined portion of the terminal ileum appeared normal.The background colonic mucosa appeared normal. Biopsied. Sigmoid diverticulosis.The distal rectum and anal verge are normal on retroflexion view 2014--diverticulosis EGD: 2021--normal esophagus. Z-line regular. Normal stomach. Normal duodenal bulb and 2nd portion of theduodenum. 2018-- Normal esophagus. Biopsied.Z-line regular. Normal stomach.Normal duodenal bulb and second portion of the duodenum. CTAP: 03/15/2024--colonic diverticulosis without diverticulitis. Mildly dilated urinary bladder without stone or gas. Appendix well seen and appears normal. Hepatic steatosis 2022-- Wall thickening and inflammatory changes of the distal descending colon/proximal sigmoid colon, favoring acute diverticulitis. No abscess collections or pneumoperitoneum. Mild diffuse wall thickening of the rest of the colon also noted. Please correlate clinically.Other incidental findings as detailed above. 01/13/18--Findings consistent with epiploic appendagitis of the proximal sigmoid colon. Colonic diverticulosis without evidence diverticulitis. 4.8 cm simple cyst right kidney. Small fat containing inguinal hernias in the right greater than the left. 08/22/2017--mild acute uncomplicated diverticulitis Family Hx: No known family history of GI malignancy Cousin with Crohn's disease Current Outpatient Medications Medication Sig Dispense Refill TYLENOL 8 HOUR 650 MG PO TBCR 2 TABLETS NEEDED 10 Tab 0 Multiple Vitamins-Minerals (MULTIVITAMIN GUMMIES ADULT) chewable tablet Take 1 Tablet by mouth in the morning. polyethylene glycol 3350 (MIRALAX) packet Take 1 Packet by mouth in the morning. Vitamin B Complex Oral Tablet Take 1 Tablet by mouth in the morning. Vitamin C 100 MG Oral Tablet Take 1 Tablet by mouth in the morning. Fluticasone Propionate 50 MCG/ACT Nasal Suspension (Flonase) USE 2 SPRAYS IN EACH NOSTRIL DAILY 48 g 3 Vitamin D (Ergocalciferol) 50 MCG (2000 UT) Oral Capsule Taking 2500 per day 1 Capsule 0 Cholecalciferol 50 MCG (2000 UT) Oral Capsule Take 1 Capsule by mouth in the morning. Mylanta Coat & Cool 1200-270-80 MG/10ML Oral Suspension (Adrian Carb-Mag Hydrox- Simeth) Take by mouth. Rosuvastatin Calcium 5 MG Oral Tablet (Crestor) TAKE 1 TABLET IN THE MORNING 90 Tablet 1 oxyCODONE-Acetaminophen 5-325 MG Oral Tablet (Percocet) Take 1 Tablet by mouth every 4 hours as needed for Pain, Severe for up to 15 doses. 10 Tablet 0 HYDROcodone-Acetaminophen 7.5-325 MG Oral Tablet Take 1 Tablet by mouth 2 times a day as needed forPain, Severe. 30 Tablet 0 Ciprofloxacin HCl 500 MG Oral Tablet (Cipro) Sucralfate 1 GM Oral Tablet (Carafate) Esomeprazole Magnesium 20 MG Oral Capsule Delayed Release (NexIUM) Take 2 Capsules by mouth daily before breakfast. 180 Capsule 3 Famotidine 20 MG Oral Tablet (Pepcid) Take 1 Tablet by mouth at bedtime. 90 Tablet 3 diazepam (VALIUM) 5 MG Tablet 1/2 to 1 tab at bedtime for spasticity (Patient taking differently: Take 1 Tablet by mouth every 6 hours as needed. 1/2 to 1 tab at bedtime for spasticity as needed) 90 Tab 1 Amoxicillin 875 MG Oral Tablet Take 1 Tablet by mouth. Take prior to dental procedures (Patient nottaking: Reported on 03/17/2024) Tums Smoothies 750 MG Oral Tablet Chewable (calcium CARBonate) Take 300 mg by mouth as needed. metroNIDAZOLE 500 MG Oral Tablet (Flagyl) hydrOXYzine HCl 10 MG Oral Tablet (Atarax) Take 1 Tablet by mouth every 6 hours as needed for Anxiety. 90 Tablet 1 No current facility-administered medications for this visit. Past Medical History: Diagnosis Date Asthma, allergic Diverticulitis Dyslipidemia, goal to be determined 03/01/2001 Esophageal reflux FAM HX-DIABETES MELLITUS 02/15/2001 Family history of other cardiovascular diseases 02/15/2001 ICD-10 update of inactive term Multiple sclerosis (HCC) Need for prophylactic vaccination with tuberculosis (BCG) vaccine pos ppd/feliberto, inh x 6 mos Other optic neuritis OU; VF 06/18 WNL Past Surgical History: Procedure Laterality Date BREAST LESION,OTHER,EXCISION neck COLONOSCOPY, DIAGNOSTIC (RECTUM) done normal exam repeat in 10 years COLONOSCOPY, DIAGNOSTIC (RECTUM) 11/09/2014 diverticulosis, repeat 10 yrs/[facility] COLONOSCOPY, DIAGNOSTIC (RECTUM) 05/26/2018 sigmoid diverticulosis/normal biopsies/COLONOSCOPY FLEXIBLE PROXIMAL DIAGNOSTIC performed by Sydnie Epps MD at ENDOSCOPY [facility] COLONOSCOPY, DIAGNOSTIC (RECTUM) 06/24/2022 few small and large mouthed diverticula/IC valve lipomatous/hemorrhoids/biopsies show adenomatous polyps/recall 3 years/COLONOSCOPY FLEXIBLE PROXIMAL DIAGNOSTIC performed by Dick Culp ENDOSCOPY [facility] DENTAL SURGERY PROCEDURE NEC Dental Surgery Procedure EGD, FLEXIBLE, DIAGNOSTIC 03/11/2013 ESOPHAGOGASTRODUODENOSCOPY (EGD), FLEXIBLE, TRANSORAL, DIAGNOSTIC performed by Perez Escudero MD at ENDOSCOPY [facility] EGD, FLEXIBLE, DIAGNOSTIC 04/06/2014 gastritis/ESOPHAGOGASTRODUODENOSCOPY (EGD), FLEXIBLE, TRANSORAL, DIAGNOSTIC performed by Best Dumont MD at [facility] EGD, FLEXIBLE, DIAGNOSTIC 02/22/2018 normal bx/ESOPHAGOGASTRODUODENOSCOPY (EGD), FLEXIBLE, TRANSORAL, DIAGNOSTIC performed by Sydnie Epps MD at ENDOSCOPY [facility] EGD, FLEXIBLE, DIAGNOSTIC 09/02/2021 normal scope / biopsies normal / ESOPHAGOGASTRODUODENOSCOPY (EGD), FLEXIBLE, TRANSORAL, DIAGNOSTIC performed by Sydnie Epps MD at [facility] EGD, W/ENDOSCOPIC US 04/06/2014 normal/ESOPHAGOGASTRODUODENOSCOPY (EGD), FLEXIBLE, TRANSORAL, ENDOSCOPIC ULTRASOUND performed by Best Dumont MD at ENDOSCOPY [facility] LAP;REPAIR RECURRENT HERNIA Left 01/19/2024 LAPAROSCOPIC REPAIR INGUINAL HERNIA RECURRENT performed by Doron Torres MD at OR [facility] MISCELLANEOUS ORDER ([facility] ONLY) 04/25/2010 A-port central venous catheter with port Dr. See REMOVAL OF EPIDIDYMIS LESION REMOVE GALLBLADDER VASECTOMY Social History Tobacco Use Smoking status: Never Passive exposure: Never Smokeless tobacco: Never Vaping Use Vaping status: Never Used Substance Use Topics Alcohol use: Yes Comment: rare Drug use: No Review of patient's allergies indicates: Allergen Reactions Ibuprofen Hives Review of Systems: See HPI for pertinent positives. All others negative, other than those noted in HPI. Physical Exam: BP 142/78 | Temp 36.7 C (98.1 F) | Wt 63.5 kg (140 lb) | BMI 23.30 kg/m | BSA 1.71 m GENERAL: Well developed and well nourished in no acute distress. SKIN: No rashes, ulcers, jaundice or spider angiomata. HEENT: Normocephalic, sclera clear, pharynx normal. NECK: Supple, no lymphadenopathy, no masses or thyroid enlargement. LUNGS: Clear to auscultation bilaterally, no respiratory distress or accessory muscles used. HEART: Regular rate & rhythm, no murmurs and no gallops. ABDOMEN: Normal bowel sounds, soft. LLQ tenderness. no masses or hepatosplenomegaly. EXTREMITIES: No palmar erythema, no ankle edema, no skin discoloration, no clubbing, no cyanosis. NEURO: No lateralizing findings. Sensory/Motor grossly normal. Lab data/imaging study review: Reviewed via chart. Impression/Plan: This is a(n) 68 year old male who is being evaluated in the office for ongoing care/risk managementfor the below diagnoses. 1. LLQ abdominal pain (Primary) 2. History of diverticulitis 3. Diarrhea, unspecified type Patient with ongoing left lower quadrant pain despite treatment with Cipro and Flagyl. History of recurrent diverticulitis, this is a 7th occurrence. Has never had surgery. Loose stools/diarrhea with Cipro and Flagyl Stool studies ordered; rule out C diff CTAP with IV and oral contrast ordered Colonoscopy for further eval, to be done in 6-8 weeks. 4. Gastroesophageal reflux disease, unspecified whether esophagitis present Epigastric discomfort/gastritis Change Nexium from twice daily to 40 mg daily in the morning Restart Pepcid 20 mg nightly Okay to use Carafate as needed however he has not seen much benefit from this medication. The patient agrees to the above plan and will call with additional questions or concerns. ER with all emergencies advised. Check-out note: -Lab today -CTAP -Colonoscopy in 6-8 weeks -Follow up after scope I spent a total of 30-39 minutes (exact time 30 mins) on the date of service in preparation, delivery, and documentation of the care provided to Doron [place] excluding any time spent in the performance of separately billed services or time spent by another provider/QHP. MATTIE Ash [facility]ology, [facility] This chart was completed in part utilizing [employer] Speech Voice Recognition Software. Grammatical errors, random word insertions, prounoun errors, and incomplete sentences are an occasional consequence of this system due to software limitations, ambient noise, and hardware issues. Any formal questions or concerns about the content, text, or information contained within the body of this dictation should be directly addressed to the provider for clarification. documented in this encounter Nursing Notes * Elayne Lund CMA - 03/23/2024 10:20 AM EST Chief Complaint Patient presents with Follow Up Pt here to discuss diverticulitis flare sx. Pt seen at [facility] last Thursday. On Cipro/Flagyl. Pt alsotaking Carafate/Nexium for possible gastritis. Hx GERD.Pt c/o LLQ pain which resembles diverticulitis. Pt also had an L inguinal hernia repair 01/2024. documented in this encounter Plan of Treatment Upcoming Encounters Date Type Department Care Team (Latest Contact Info) Description 03/24/2024 10:35 AM EST Imaging Cardiac Studies, [facility] [address] [facility] [place] [address] 04/12/2024 1:00 PM EST Hospital Encounter ENDO [facility], Endoscopy Room [facility] [address] [facility] [place] [phone] Sydnie Epps MD [address] [place] [address] 04/12/2024 1:00 PM EST - 04/12/2024 1:30 PM EST Surgery ENDO [facility], Endoscopy Room [facility] [address] [place] [id number] Sydnie Epps MD [address] [place] [address] COLONOSCOPY FLEXIBLE PROXIMAL DIAGNOSTIC 04/29/2024 11:00 AM EDT Office Visit Gastroenterology, [facility] [address] [facility] [place] [address] Lima Page CRNP [address] [facility] [place] [address] 05/12/2024 11:15 AM EDT Office Visit Urology Stephanie Sam [address] [place] [address] Joaquín Torres MD [address] [place] [address] 06/06/2024 9:20 AM EDT Office Visit Neurology [facility] [address] [facility] [place] [address] Renetta Dow MD [address] [facility] [place] [address] 07/15/2024 7:45 AM EDT Office Visit [facility] [address] [address] Eileen Deluca MD [address] [facility] [place] [address] 09/15/2024 8:00 AM EDT Office Visit Family Practice [facility] [address] [facility] [place] [address] Deanna Lujan CRNP [address] [place] [address] 02/02/2025 9:40 AM EST Office Visit Dermatology [facility] Karol [place] [address] [place] [address] Kimberly Qureshi PA-C [address] [facility] [place] [address] Scheduled Orders Name Type Priority Associated Diagnoses Orde r Schedule GASTROINTESTINAL PATHOGEN PANEL, STOOL Lab Routine LLQ abdominal pain History of diverticulitis Gastroesophageal reflux disease, unspecified whether esophagitis present Diarrhea, unspecified type Expected: 03/23/2024, Expires: 03/23/2025 CLOSTRIDIUM DIFFICILE, PCR Lab Routine LLQ abdominal pain History of diverticulitis Gastroesophageal reflux disease, unspecified whether esophagitis present Expected: 03/23/2024, Expires: 03/23/2025 COLONOSCOPY, DIAGNOSTIC (RECTUM) Procedures Routine LLQ abdominal pain History of diverticulitis Gastroesophageal reflux disease, unspecified whether esophagitis present Expected: 04/20/2024, Expires: 04/20/2025 Scheduled Procedures Name Priority Associated Diagnoses Date/Ti [...] Cancer Screening 06/24/2025 Lipid Panel 06/01/2028 06/02/2023, 03/0 10/2022, 09/18/2021, Additional history exists DTap/Tdap Vaccines [...] this encounter Medical Devices Implanted Type Area Vp Product Management Device Identifier Shelf Expiration Date Model / Serial / Lot Mesh 13x9cm Monofilament Hernia Anatomical Medium Left Preshaped With Marking Polypropylene Dextile - [id number] Implanted:Qty: 1 on 01/19/2024 by Doron Torres MD at OR [facility] Left: Groin COVIDIEN 11/16/2027 [id number] / / [id number] documented as of this encounter Visit Diagnoses Diagnosis LLQ abdominal pain- Primary Abdominal pain, left lower quadrant History of diverticulitis Diarrhea, unspecified type Gastroesophageal reflux disease, unspecified whether esophagitis present LLQ abdominal pain Abdominal pain, left lower [...] Advance Directives occurred with: Patient Care Teams Dog Handler Relationship Specialty Start Date End Date Hira Harvey DO [address] [facility] [place] [address] PCP - General Family Medicine 06/22/20 documented as of this encounter"
--- OUTSIDE RECORDS SUMMARY | 2024-04-03 23:01 | External Medical Summary | Summary of Care ---
Author Name Unknown Organization [facility] Address [address] [place] [address] Phone [phone] Care Team Providers Care Nature Photographer Name Role Phone Hira Harvey DO Primary Care Provider Reason for Visit * Reason Comments Follow Up 1 year follow up for thyroid nodule Encounter Details Date Type Department Care Team (Late st Contact Info) Description 02/15/2024 9:45 AM EST Office Visit Otolaryngology [facility] [address] [facility] [place] [address] Aidan Han DO 132 [facility] [place] [address] Thyroid nodule* Allergies Active Allergy Reactions Criticality Noted Date Comments Ibuprofen Hives 01/19/2024 documented as of this encounter (statuses as of 02/15/2024) Medications TYLENOL 8 HOUR 650 MG PO [...] for up to 15 doses. 10 Tablet Active Additional Information Patient not taking.Reported on 02/15/2024 documented as of this encounter (statuses as of 02/15/2024) Active Problems Problem Noted Date Diagnosed Date Recurrent left inguinal hernia 12/16/2023 Elevated prostate specific antigen (PSA) 023 History of nonmelanoma skin cancer 05/20/2022 Overview (05/20/2022): Hx of BCC R temporal scalp s/p Mohs 05/07, L upper arm s/p C&C 04/2021, L latter day s/p Mohs 2020, SCC dorsal R hand s/p Mohs 2020 Renal cyst 10/16/2017 Overview (10/16/2017): 09/02 5cm R cyst, 10/03 4.8cm - advised 1 year FU with US Dyslipidemia 03/01/2001 Gastroesophageal reflux disease without esophagi tis Multiple sclerosis documented as of this encounter (statuses as of 02/15/2024) Resolved Problems Problem Noted Date Diagnosed Date [...] as of this encounter (statuses as of 02/15/2024) Immunizations Name Administration Dates Next Due HEP [...] 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 Not on file N ot on file documented as of this encounter Last Filed Vital Signs Vital Sign Reading Time Taken Comments Blood Pressure - - Pulse - - Temperature 35.7 C (96.3 F) 02/15/2024 9:05 AM ES T Respiratory Rate - - Oxygen Saturation - - Inhaled Oxygen Concentration - - Weight 64 kg (141 lb 3.2 oz) 02/15/2024 9:05 AM EST Height 165.1 cm (5' 5") 02/15/2024 9:05 AM EST Body Mass Index 23.5 02/15/2024 9:05 AM EST documented in this encounter Progress Notes * Aidan Han, DO - 02/15/2024 9:23 AM EST Otolaryngology Head and Neck Surgery 02/15/2024 Patient returns today for check of a thyroid nodule. This was previously biopsied in 2016 and was benign. His most recent ultrasound was in November of 2022. At that time I had recommended a repeat ultrasound in a year. Does appear it was ordered by family practice but has not been completed Problem List Patient Active Problem List Diagnosis Dyslipidemia Gastroesophageal reflux disease without esophagitis Multiple sclerosis (HCC) Renal cyst History of nonmelanoma skin cancer Elevated prostate specific antigen (PSA) Recurrent left inguinal hernia Past Medical History: Diagnosis Date Asthma, allergic Dyslipidemia, goal to be determined 03/01/2001 Esophageal [...] COLONOSCOPY, DIAGNOSTIC (RECTUM) 11/09/2014 diverticulosis, repeat 10 yrs/[facility] COLONOSCOPY, DIAGNOSTIC (RECTUM) 05/26/2018 sigmoid diverticulosis/normal biopsies/COLONOSCOPY FLEXIBLE PROXIMAL DIAGNOSTIC performed by Sydnie Epps MD at ENDOSCOPY [facility] COLONOSCOPY, DIAGNOSTIC (RECTUM) 06/24/2022 few small and large mouthed diverticula/IC valve lipomatous/hemorrhoids/biopsies show adenomatous polyps/recall 3 years/COLONOSCOPY FLEXIBLE PROXIMAL DIAGNOSTIC performed by Dick Culp ENDOSCOPY [facility] DENTAL SURGERY PROCEDURE NEC Dental Surgery Procedure EGD, FLEXIBLE, DIAGNOSTIC 03/11/2013 ESOPHAGOGASTRODUODENOSCOPY (EGD), FLEXIBLE, TRANSORAL, DIAGNOSTIC performed by Perez Escudero MD at ENDOSCOPY [facility] EGD, FLEXIBLE, DIAGNOSTIC 04/06/2014 gastritis/ESOPHAGOGASTRODUODENOSCOPY (EGD), FLEXIBLE, TRANSORAL, DIAGNOSTIC performed by Best Dumont MD at [facility] EGD, FLEXIBLE, DIAGNOSTIC 02/22/2018 normal bx/ESOPHAGOGASTRODUODENOSCOPY (EGD), FLEXIBLE, TRANSORAL, DIAGNOSTIC performed by Sydnie Epps MD at ENDOSCOPY [facility] EGD, FLEXIBLE, DIAGNOSTIC 09/02/2021 normal scope / biopsies normal / ESOPHAGOGASTRODUODENOSCOPY (EGD), FLEXIBLE, TRANSORAL, DIAGNOSTIC performed by Sydnie Epps MD at [facility] EGD, W/ENDOSCOPIC US 04/06/2014 normal/ESOPHAGOGASTRODUODENOSCOPY (EGD), FLEXIBLE, TRANSORAL, ENDOSCOPIC ULTRASOUND performed by Best Dumont MD at [facility] LAP;REPAIR RECURRENT HERNIA Left 01/19/2024 LAPAROSCOPIC REPAIR INGUINAL HERNIA RECURRENT performed by Doron Torres MD at OR [facility] MISCELLANEOUS ORDER ([facility] ONLY) 04/25/2010 A-port central venous catheter with port Dr. See REMOVAL OF EPIDIDYMIS LESION REMOVE GALLBLADDER VASECTOMY Medications Current Outpatient Medications Medication Sig Dispense Refill TYLENOL 8 HOUR 650 MG PO TBCR 2 TABLETS NEEDED 10 Tab 0 Multiple Vitamins-Minerals (MULTIVITAMIN GUMMIES ADULT) chewable tablet Take 1 Tablet by mouth in the morning. polyethylene glycol 3350 (MIRALAX) packet Take 1 Packet by mouth in the morning. diazepam (VALIUM) 5 MG Tablet 1/2 to 1 tab at bedtime for spasticity (Patient taking differently: Take 1 Tablet by mouth every 6 hours as needed. 1/2 to 1 tab at bedtime for spasticity as needed) 90 Tab 1 Vitamin B Complex Oral Tablet Take 1 Tablet by mouth in the morning. Vitamin C 100 MG Oral Tablet Take 1 Tablet by mouth in the morning. Fluticasone Propionate 50 MCG/ACT Nasal Suspension (Flonase) USE 2 SPRAYS IN EACH NOSTRIL DAILY 48 g 3 Vitamin D (Ergocalciferol) 50 MCG (2000 UT) Oral Capsule Taking 2500 per day 1 Capsule 0 Famotidine 20 MG Oral Tablet (Pepcid) Take 1 Tablet by mouth in the morning and 1 Tablet before bedtime. (Patient taking differently: Take 1 Tablet by mouth as needed.) 180 Tablet 3 Tums Smoothies 750 MG Oral Tablet Chewable (calcium CARBonate) Take 300 mg by mouth as needed. Cholecalciferol 50 MCG (2000 UT) Oral Capsule Take 1 Capsule by mouth in the morning. Esomeprazole Magnesium 20 MG Oral Capsule Delayed Release (NexIUM) Take 1 Capsule by mouth in the morning. 1 hour before the first meal of the day. (Patient taking differently: Take 1 Capsule by mouth at bedtime.) 90 Capsule 3 Mylanta Coat & Cool 1200-270-80 MG/10ML Oral Suspension (Adrian Carb-Mag Hydrox- Simeth) Take by mouth. Rosuvastatin Calcium 5 MG Oral Tablet (Crestor) TAKE 1 TABLET IN THE MORNING 90 Tablet 1 Amoxicillin 875 MG Oral Tablet Take 1 Tablet by mouth. Take prior to dental procedures (Patient nottaking: Reported on 02/15/2024) oxyCODONE-Acetaminophen 5-325 MG Oral Tablet (Percocet) Take 1 Tablet by mouth every 4 hours as needed for Pain, Severe for up to 15 doses. (Patient not taking: Reported on 02/15/2024) 10 Tablet 0 No current facility-administered medications for this visit. Allergies Review of patient's allergies indicates: Allergen Reactions Ibuprofen Hives Family History Family History Problem Relation Name Age of Onset Hypertension Mother Heart Disorder Grandfather (Maternal) Heart Disorder Grandfather (Paternal) Diabetes Grandmother (Paternal) Arthritis Grandmother (Maternal) Social History Social History Tobacco Use Smoking status: Never Passive exposure: Never Smokeless tobacco: Never Substance Use Topics Alcohol use: Yes Comment: rare Vaping/E-Cigarette Use Vaping/E-Cigarette Use Never User Vaping/E-Cigarette Substances Vaping/E-Cigarette Devices Review of Systems Negative for constitutional, eyes, cardiac, pulmonary, hepatic, renal, digestive, hematologic, epileptic, syncopal, musculo-skeletal, mental health, integumentary, hypertensive, lipid, arthritic, diabetic, thyroid, or neurologic disorders (except as listed in the PMH and Problem List). Physical Examination: Temp 35.7 C (96.3 F) (Tympanic) | Ht 1.651 m (5' 5") | Wt 64 kg (141 lb 3.2 oz) | BMI 23.50 kg/m | BSA 1.71 m PHYSICAL EXAM General: This is a healthy appearing male who appears his stated age. The patient is alert and appropriately verbally conversant without hoarseness. Face: The face was inspected and no cutaneous masses or lesions were visualized. There was no erythema or edema noted. Facial movement was symmetric without weakness. No skin lesions were detected. There was no sinus tenderness elicited. The parotid and submandibular glands were normal to palpation. Eyes: Extra-ocular muscle function was intact. No nystagmus was observed. Pupils were equal. Cranial Nerves: Cranial nerves II, III, IV, and were noted to be intact via extra-ocular muscle movement testing. Cranial nerve VII noted to be intact and symmetric by facial movement. Cranial nerve VIII was tested with tuning fork examination and revealed symmetric hearing. Cranial nerves IX and X noted to be intact by gag reflex and palatal movement. Cranial nerve XII noted to be intact by active and symmetric tongue movement. Nose: Examination of the nose revealed no masses, polyps, mucopus, or other lesion. The nasal septum was non-obstructing. The turbinates were without abnormality. Neck: Visualization and palpation of the neck revealed no mass lesions, no thyromegaly or thyroid masses. No skin lesions or inflammatory processes were detected. The cervical musculature was normal to palpation. Lymphatics (cervical): There were no palpable lymph nodes in the posterior triangle, submandibular triangle, jugulodigastric region, or central neck. Assessment: 68-year-old male with a right-sided thyroid nodule, previous FNA benign. Plan: Recommend repeat ultrasound which I ordered today to ensure stability of the nodule. Will contact with results. I spent a total of 30 minutes on the date of service in preparation, delivery, and documentation ofthe care provided to the above patient, excluding any time spent on the performance of any procedures or separately billable services. Aidan Han DO, [facility] [place], Department of Otolaryngology-Head and Neck Surgery [facility] [place] 02/15/2024 9:46 AM documented in this encounter Nursing Notes * Freeman Griffiths CMA - 02/15/2024 9:05 AM EST Chief Complaint Patient presents with Follow Up 1 year follow up for thyroid nodule Doron Davey is a 68 year old male who presents today for a 1 year follow up for a thyroid nodule. He had an ultrasound of his neck on 02/27/2023. documented in this encounter Plan of Treatment Upcoming Encounters Date Type Department Care Team (Late st Contact Info) Description 02/22/2024 2:45 PM EST Imaging Radiology, [facility] [address] [facility] [place] [phone] 03/09/2024 2:00 PM EST Office Visit General Surgery, [facility] [address] [place] [address] Doron Torres MD [address] [place] [address] 03/17/2024 8:20 AM EST Office Visit Family Practice [facility] [address] [place] [address] Hira Harvey DO [address] [place] [address] 05/12/2024 11:15 AM EDT Office Visit Urology Stephanie Sam [address] [place] [address] [place] [address] Joaquín Coppoal MD [address] [place] [address] 06/06/2024 9:20 AM EDT Office Visit Neurology [facility] [address] [place] [address] Renetta Dow MD 200 [facility] [place] [address] 07/15/2024 7:45 AM EDT Office Visit MOHS Surgery [facility] [address] [place] [address] Eileen Deluca MD 200 [place] [address] 02/02/2025 9:40 AM EST Office Visit Dermatology [facility] [address] [place] [address] Kimberly Qureshi PA-C 200 [facility] [place] [address] Scheduled Orders Name Type Priority Associated Diagnoses Orde r Schedule US HEAD AND NECK Medical Imaging Routine Thyroid nodule Expected: 02/22/2024, Expires: 03/17/2025 Health Maintenance Due Date Last Done Comments Cologuard 2002 Fecal Occult Blood Test 2002 Sigmoidoscopy 2002 Pneumococcal Vaccine: 50+ Years (2 of 2 - PCV) 07/03/2007 05/22/2003 Zoster Vaccines (1 of 2) 07/03/2007 Depression Screening 07/12/2021 07/12/2020 Adult Wellness Visit 07/03/2023 COVID-19 Vaccine (1 - season) 2023 Influenza Vaccine (FLU shot) (#1) 2023 12/29/2018, 12/10/2017, 11/17/2016, Additional history exists Colonoscopy 06/24/2025 06/24/2022, 05/0 10/2022, 05/26/2018, Additional history exists Colorectal Cancer [...] this encounter Medical Devices Implanted Type Area Electric Container Tester Device Identifier Shelf Expiration Date Model / Serial / Lot Mesh 13x9cm Monofilament Hernia Anatomical Medium Left Preshaped With Marking Polypropylene Dextile - [id number] Implanted:Qty: 1 on 01/19/2024 by Doron Torres MD at OR [facility] Left: Groin COVIDIEN 11/16/2027 [id number] / / [id number] documented as of this encounter Visit Diagnoses Diagnosis Thyroid nodule- Primary Nontoxic uninodular goiter documented in this encounter Advance Directives * Full Code (Latest Code Status on File) Date Activated Date Inactivated Comments 01/19/2024 7:23 AM 01/19/2024 2:22 PM This order r eflects the patients wishes and were consensually agreed upon. Question Answer Comments Discussion of Advance Directives occurred with: Patient Care Teams Nature Photographer Relationship Specialty Start Date End Date Hira Harvey DO [address] [place] [address] PCP - General Family Medicine 06/22/20 documented as of this encounter
--- OUTSIDE RECORDS SUMMARY | 2024-04-03 23:01 | External Medical Summary | Summary of Care ---
Author Name Unknown Organization [facility] Address [address] [place] [address] Phone [phone] Care Team Providers Care Pen Rider Name Role Phone Hira Harvey DO Primary Care Provider Reason for Visit * Reason Comments Post-Op 01/19/2024 lap inguin al hernia repair Encounter Details Date Type Department Care Team (Late st Contact Info) Description 02/05/2024 9:45 AM EST Office Visit General Surgery, [facility] 132 [facility] [place] [address] Doron Torres MD 132 [facility] [place] [address] Postop check* Allergies Active Allergy Reactions Criticality Noted Date Comments Ibuprofen Hives 01/19/2024 documented as of this encounter (statuses as of 02/05/2024) Medications TYLENOL 8 HOUR 650 MG PO [...] bedtime for spasticity as needed, Reported on 02/05/2024 Vitamin B Complex Oral Tablet Take 1 [...] Patient taking differently:20 mg OralPRN, Reported on 02/05/2024 Amoxicillin 875 MG Oral Tablet Take 1 [...] mg OralHS, (No instructions reported), Reported on 02/05/2024 Mylanta Coat & Cool 1200-270-80 MG/10ML Oral [...] Active Additional Information Patient not taking.Reported on 02/05/2024 documented as of this encounter (statuses as of 02/05/2024) Active Problems Problem Noted Date Diagnosed Date Recurrent left inguinal hernia 12/16/2023 Elevated prostate specific antigen (PSA) 023 History of nonmelanoma skin cancer 05/20/2022 Overview (05/20/2022): Hx of BCC R temporal scalp s/p Mohs 05/07, L upper arm s/p C&C 04/2021, L scientology s/p Mohs 2020, SCC dorsal R hand s/p Mohs 2020 Renal cyst 10/16/2017 Overview (10/16/2017): 09/02 5cm R cyst, 10/03 4.8cm - advised 1 year FU with US Dyslipidemia 03/01/2001 Gastroesophageal reflux disease without esophagi tis Multiple sclerosis documented as of this encounter (statuses as of 02/05/2024) Resolved Problems Problem Noted Date Diagnosed Date [...] as of this encounter (statuses as of 02/05/2024) Immunizations Name Administration Dates Next Due HEP [...] 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 The patient is not having any pain. Fever has not been present. He has no wound drainage and has no wound erythema. Patient is slowly resuming normal activities but still refraining from heavy lifting as recommended. PE: There were no vitals taken for this visit. There were no vitals taken for this visit. General: alert, healthy, and no distress Head: Normocephalic, No masses, lesions, tenderness or abnormalities Eye Exam: conjunctiva are pink and non-injected, sclera clear Abdomen: abdomen soft, non-tender, no masses or organomegaly, and incisions healing without erythema or discharge; no recurrence detected Extremities: no edema, no skin discoloration, no clubbing, no cyanosis Skin: skin color, texture, turgor are normal, no rashes or significant lesions Assessment: Doron Davey is doing well. We discussed continued weight lifting restrictions for a full 4-6 weeks after surgery. All questions answered. Plan: follow - up 4 weeks Doron Torres MD 02/05/2024 10:57 AM documented in this encounter Nursing Notes * Elsy Parada LPN - 02/05/2024 9:33 AM EST Chief Complaint Patient presents with Post-Op 01/19/2024 lap inguinal hernia repair Patient is having some pain, of a four. documented in this encounter Plan of Treatment Upcoming Encounters Date Type Department Care Team (Late st Contact Info) Description 02/15/2024 8:30 AM EST Office Visit Urology, [facility] [address] [place] [address] Joaquín Torres MD [address] [place] [address] 02/15/2024 9:45 AM EST Office Visit Otolaryngology [facility] [address] [place] [address] Aidan Han, DO [address] [place] [address] 03/09/2024 2:00 PM EST Office Visit General Surgery, [facility] [address] [place] [address] Doron Torres MD [address] [place] [address] 03/17/2024 8:20 AM EST Office Visit Family Practice [facility] [address] [place] [address] Hira Harvey, DO [address] [place] [address] 06/06/2024 9:20 AM EDT Office Visit Neurology [facility] [address] [place] [address] Renetta Dow MD [address] [facility] [address] [place] [address] 07/15/2024 7:45 AM EDT Office Visit MOHS Surgery [facility] [address] [place] [address] Eileen Deluca MD 200 [facility] [place] [address] 02/02/2025 9:40 AM EST Office Visit Dermatology [facility] [address] [facility] [place] [address] Kimberly Qureshi PA-C 200 [facility] [place] [address] Health Maintenance Due Date Last Done Comments Cologuard 2002 Fecal Occult Blood Test 2002 Sigmoidoscopy 2002 Pneumococcal Vaccine: 65+ Years (2 of 2 - PCV) 07/03/2007 [...] this encounter Medical Devices Implanted Type Area Admission Nurse Device Identifier Shelf Expiration Date Model / Serial / Lot Mesh 13x9cm Monofilament Hernia Anatomical Medium Left Preshaped With Marking Polypropylene Dextile - [id number] Implanted:Qty: 1 on 01/19/2024 by Doron Torres MD at OR [facility] Left: Groin COVIDIEN 11/16/2027 [id number] / / [id number] documented as of this encounter Visit Diagnoses Diagnosis Postop check- Primary Follow-up examination, following unspecified surgery documented in this encounter Advance Directives * Full Code (Latest Code Status on File) Date Activated Date Inactivated Comments 01/19/2024 7:23 AM 01/19/2024 2:22 PM This order r eflects the patients wishes and were consensually agreed upon. Question Answer Comments Discussion of Advance Directives occurred with: Patient Care Teams Pen Rider Relationship Specialty Start Date End Date Hira Harvey DO [address] [place] [address] PCP - General Family Medicine 06/22/20 documented as of this encounter
--- OUTSIDE RECORDS SUMMARY | 2024-04-03 23:01 | External Medical Summary ---
Author Name Unknown Address Unknown Organization K01:[facility] - [address] [place] [address] Laboratory Report Ordering Provider Test Date Status JINA SERRANO 02/01/2024 08:04:59 Final Observation Date Value Abnormality Reference (Units ) Status PSA 02/01/2024 08:04:59 8.39 Above high normal <4 .10 (ng/mL) Final Performing Location LAB[facility]ATORY [facility] - [address] [place] [address]
--- OUTSIDE RECORDS SUMMARY | 2024-04-03 23:01 | External Medical Summary | Summary of Care ---
Author Name Unknown Organization [facility] Address [address] [place] [address] Phone [phone] Care Team Providers Care Management Planner Name Role Phone Hira Harvey DO Primary Care Provider Reason for Visit * Reason Onset Date Comments Appointment 02/15/2024 Encounter Details Date Type Department Care Team (Late st Contact Info) Description 02/15/2024 Telephone Urology Stephanie Sam [address] [place] [address] [place] [address] Joaquín Torres MD [address] [place] [address] Appointment Allergies Active Allergy Reactions Criticality Noted Date [...] L upper arm s/p C&C 04/2021, L jewish s/p Mohs 2020, SCC dorsal R hand [...] encounter Miscellaneous Notes * Telephone Encounter - Loree Alvarez OSA - 02/15/2024 8:56 AM EST Patient needs set up for a prostate MRI. Please arrange and call patient. documented in this encounter Plan of Treatment Upcoming Encounters Date Type Department Care Team (Late st Contact Info) Description 02/15/2024 9:45 AM EST Office Visit Otolaryngology [facility] [address] [place] [address] Aidan Han, DO [address] [place] [address] Arrived 03/09/2024 2:00 PM EST Office Visit General Surgery, [facility] [address] [place] [address] Doron Torres MD [address] [place] [address] 03/17/2024 8:20 AM EST Office Visit Family Practice [facility] [address] [place] [address] Hira Harvey, DO [address] [place] [address] 05/12/2024 11:15 AM EDT Office Visit Urology Stephanie Sam [address] [facility] [address] [place] [address] Joaquín Torres MD [address] [place] [address] 06/06/2024 9:20 AM EDT Office Visit Neurology [facility] [address] [place] [address] Renetta Dow MD 200 [facility] [place] [address] 07/15/2024 7:45 AM EDT Office Visit MOHS Surgery [facility] [address] [place] [address] Eileen Deluca MD 200 [facility] [place] [address] 02/02/2025 9:40 AM EST Office Visit Dermatology [facility] [address] [place] [address] Kimberly Qureshi PA-C 200 [facility] [place], [place] [address] Health Maintenance Due Date Last Done Comments [...] this encounter Medical Devices Implanted Type Area Commercial Loan Closer Device Identifier Shelf Expiration Date Model / Serial / Lot Mesh 13x9cm Monofilament Hernia Anatomical Medium Left Preshaped With Marking Polypropylene Dextile - [id number] Implanted:Qty: 1 on 01/19/2024 by Doron Torres MD at OR [facility] Left: Groin COVIDIEN 11/16/2027 [id number] / / [id number] documented as of this encounter Advance Directives * Full Code (Latest Code Status on File) Date Activated Date Inactivated Comments 01/19/2024 7:23 AM 01/19/2024 2:22 PM This order r eflects the patients wishes and were consensually agreed upon. Question Answer Comments Discussion of Advance Directives occurred with: Patient Care Teams Management Planner Relationship Specialty Start Date End Date Hira Harvey DO 132 [facility] [place] [address] PCP - General Family Medicine 06/22/20 documented as of this encounter
--- OUTSIDE RECORDS SUMMARY | 2024-04-03 23:01 | External Medical Summary | Summary of Care ---
Author Name Unknown Organization [facility] Address [address] [place] [address] Phone [phone] Care Team Providers Care Manufacturing Engineer Chief Name Role Phone Hira Harvey DO Primary Care Provider Reason for Visit * Reason Comments Outpatient Testing Encounter Details Date Type Department Care Team (Late st Contact Info) Description 02/01/2024 8:00 AM EST Laboratory Laboratory, [facility] [address] [place] [id number] [place], Laboratory [address] [place] [address] Elevated prostate specific antigen (PSA) Allergies Active Allergy Reactions Criticality Noted Date Comments Ibuprofen Hives 01/19/2024 documented as of this encounter (statuses as of 02/01/2024) Medications TYLENOL 8 HOUR 650 MG PO [...] bedtime for spasticity as needed, Reported on 01/07/2024 Vitamin B Complex Oral Tablet Take 1 [...] Patient taking differently:20 mg OralPRN, Reported on 01/07/2024 Amoxicillin 875 MG Oral Tablet Take 1 [...] mg OralHS, (No instructions reported), Reported on 01/19/2024 Mylanta Coat & Cool 1200-270-80 MG/10ML Oral [...] to 15 doses. 10 Tablet 4 Active documented as of this encounter (statuses as of 02/01/2024) Active Problems Problem Noted Date Diagnosed Date Recurrent left inguinal hernia 12/16/2023 Elevated prostate specific antigen (PSA) 023 History of nonmelanoma skin cancer 05/20/2022 Overview (05/20/2022): Hx of BCC R temporal scalp s/p Mohs 05/07, L upper arm s/p C&C 04/2021, L mu-ism s/p Mohs 2020, SCC dorsal R hand s/p Mohs 2020 Renal cyst 10/16/2017 Overview (10/16/2017): 09/02 5cm R cyst, 10/03 4.8cm - advised 1 year FU with US Dyslipidemia 03/01/2001 Gastroesophageal reflux disease without esophagi tis Multiple sclerosis documented as of this encounter (statuses as of 02/01/2024) Resolved Problems Problem Noted Date Diagnosed Date [...] as of this encounter (statuses as of 02/01/2024) Immunizations Name Administration Dates Next Due HEP [...] 9:45 AM EST Office Visit General Surgery, [facility] [address] [place] [address] Doron Torres MD [address] [facility] [place] [address] 02/15/2024 8:30 AM EST Office Visit Urology, [facility] [address] [place] [address] Joaquín Torres MD [address] [place] [address] 02/15/2024 9:45 AM EST Office Visit Otolaryngology [facility] [address] [place] [address] iAdan Han, DO [address] [facility] [place] [address] 03/17/2024 8:20 AM EST Office Visit Family Practice [facility] [address] [place] [address] Hira Harvey, DO [address] [facility] [place] [address] 06/06/2024 9:20 AM EDT Office Visit Neurology [facility] [address] [place] [address] Renetta Dow MD [address] [place] [address] 07/15/2024 7:45 AM EDT Office Visit MOHS Surgery [facility] [address] [place] [address] Eileen Deluca MD [address] [facility] [place] [address] 02/02/2025 9:40 AM EST Office Visit Dermatology [facility] [address] [facility] [place] [address] Kimberly Qureshi PA-C [address] [facility] [place] [address] Pending Results Name Type Priority Associated Diagnoses Date /Time PSA Lab Routine Elevated prostate specific antigen (PSA) 02/01/2024 8:04 AM EST Health Maintenance Due Date Last Done Comments Cologuard 2002 Fecal Occult Blood Test 2002 Sigmoidoscopy 2002 Zoster Vaccines (1 of 2) 07/03/2007 Depression Screening 07/12/2021 07/12/2020 Pneumococcal Vaccine: 65+ Years (2 of 2 - PCV) 2022 05/22/2003 Adult Wellness Visit 07/03/2023 COVID-19 Vaccine (1 [...] this encounter Medical Devices Implanted Type Area Alcoholism Worker Device Identifier Shelf Expiration Date Model / Serial / Lot Mesh 13x9cm Monofilament Hernia Anatomical Medium Left Preshaped With Marking Polypropylene Dextile - [id number] Implanted:Qty: 1 on 01/19/2024 by Doron Torres MD at OR [facility] Left: Groin COVIDIEN 11/16/2027 [id number] / / [id number] documented as of this encounter Visit Diagnoses Diagnosis Elevated prostate specific antigen (PSA) documented in this encounter Advance Directives * Full Code (Latest Code Status on File) Date Activated Date Inactivated Comments 01/19/2024 7:23 AM 01/19/2024 2:22 PM This order r eflects the patients wishes and were consensually agreed upon. Question Answer Comments Discussion of Advance Directives occurred with: Patient Care Teams Manufacturing Engineer Chief Relationship Specialty Start Date End Date Hira Harvey DO [address] [place] [address] PCP - General Family Medicine 06/22/20 documented as of this encounter
--- OUTSIDE RECORDS SUMMARY | 2024-04-03 23:01 | External Medical Summary | Summary of Care ---
Author Name Unknown Organization [facility] Address [address] [place] [address] Phone [phone] Care Team Providers Care Director Quality Assurance Name Role Phone Hira Harvey DO Primary Care Provider Reason for Visit * Reason Onset Date Comments Advice 01/21/2024 Encounter Details Date Type Department Care Team (Late st Contact Info) Description 01/21/2024 9:15 AM EST Scheduled [facility] [address] [place] [address] SandovalNurse paul Gen S[facility] 132 [place] [address] Allergies Active Allergy Reactions Criticality Noted Date Comments Ibuprofen Hives 01/19/2024 documented as of this encounter (statuses as of 01/25/2024) Medications TYLENOL 8 HOUR 650 MG PO [...] as of this encounter (statuses as of 01/25/2024) Active Problems Problem Noted Date Diagnosed Date Recurrent left inguinal hernia 12/16/2023 Elevated prostate specific antigen (PSA) 023 History of nonmelanoma skin cancer 05/20/2022 Overview (05/20/2022): Hx of BCC R temporal scalp s/p Mohs 05/07, L upper arm s/p C&C 04/2021, L baptism s/p Mohs 2020, SCC dorsal R hand s/p Mohs 2020 Renal cyst 10/16/2017 Overview (10/16/2017): 09/02 5cm R cyst, 10/03 4.8cm - advised 1 year FU with US Dyslipidemia 03/01/2001 Gastroesophageal reflux disease without esophagi tis Multiple sclerosis documented as of this encounter (statuses as of 01/25/2024) Resolved Problems Problem Noted Date Diagnosed Date [...] as of this encounter (statuses as of 01/25/2024) Immunizations Name Administration Dates Next Due HEP [...] encounter Miscellaneous Notes * Telephone Encounter - Elsy Parada LPN - 01/21/2024 9:18 AM EST PATIENT IS S/p left inguinal hernia on 01/19/[address] Doron Torres Pain Level- 6 Meds being taken for pain- tylenol,and percocet Are pain meds effective- yes Incision sites- bruised but Does the patient have a drain- no Does the patient have dressings? Are they aware of dressing instructions- yes Appetite- good Nausea/vomiting- none Bowel movement yes it is difficult Activity- walking Complying with activity restrictions- yes Coughing and deep breathing- no but told of importance Questions or concerns- none Post operative follow up scheduled for 02/05/2024 documented in this encounter Plan of Treatment Upcoming Encounters Date Type Department Care Team (Late st Contact Info) Description 02/05/2024 9:45 AM EST Office Visit General Surgery, [facility] [address] [place] [address] Dorno Torres MD [address] [place] [address] 02/15/2024 8:30 AM EST Office Visit Urology, [facility] [address] [place] [address] Joaquín Torres MD [address] [place] [address] 02/15/2024 9:45 AM EST Office Visit Otolaryngology [facility] [address] [place] [address] Aidan Han, DO [address] [place] [address] 03/17/2024 8:20 AM EST Office Visit Family Practice [facility] [address] [facility] [place] [address] Hira Harvey, DO [address] [place] [address] 06/06/2024 9:20 AM EDT Office Visit Neurology [facility] [address] [facility] [place] [address] Renetta Dow MD [address] [place] [address] [place] [address] 07/15/2024 7:45 AM EDT Office Visit MOHS Surgery [facility] 200 [facility], [place] [address] Eileen Deluca MD [address] [place] [address] [place] [address] 02/02/2025 9:40 AM EST Office Visit Dermatology [facility] [address] [place] [address] Kimberly Qureshi PA-C [address] [place] [address] [place] [address] Health Maintenance Due Date Last Done Comments Cologuard 2002 Fecal Occult Blood Test 2002 Sigmoidoscopy 2002 Zoster Vaccines (1 of 2) 07/03/2007 Depression Screening 07/12/2021 07/12/2020 Pneumococcal Vaccine: 65+ Years (2 of 2 - PCV) 2022 05/22/2003 Adult Wellness Visit 07/03/2023 COVID-19 Vaccine ( [...] this encounter Medical Devices Implanted Type Area Business Strategy Manager Device Identifier Shelf Expiration Date Model / Serial / Lot Mesh 13x9cm Monofilament Hernia Anatomical Medium Left Preshaped With Marking Polypropylene Dextile - [id number] Implanted:Qty: 1 on 01/19/2024 by Doron Torres MD at OR [facility] Left: Groin COVIDIEN 11/16/2027 [id number] / / [id number] documented as of this encounter Advance Directives * Full Code (Latest Code Status on File) Date Activated Date Inactivated Comments 01/19/2024 7:23 AM 01/19/2024 2:22 PM This order r eflects the patients wishes and were consensually agreed upon. Question Answer Comments Discussion of Advance Directives occurred with: Patient Care Teams Director Quality Assurance Relationship Specialty Start Date End Date Hira Harvey DO [address] [place] [address] PCP - General Family Medicine 06/22/20 documented as of this encounter
--- OUTSIDE RECORDS SUMMARY | 2024-04-03 23:01 | External Medical Summary | Summary of Care ---
Author Name Unknown Organization [facility] Address [address] [place] [address] Phone [phone] Care Team Providers Care Supervisor Paint Roller Covers Name Role Phone Amado Harvey DO Primary Care Provider Reason for Referral * Precert (Within 10 days (routine)) - Authorized Specialty Diagnoses / Procedures Referred By Contac t Referred To Contact Radiology Diagnoses Elevated prostate specific antigen (PSA) Procedures MR PROSTATE, WITH/WITHOUT CONTRAST Joaquín Torres MD [address] [place] [address] Phone: tel: fax: Referral ID Status Reason Start Date Expiration Date V isits Requested Visits Authorized [id number] Authorized 02/15/[phone] Reason for Visit * Reason Comments Follow Up Encounter Details Date Type Department Care Team (Late st Contact Info) Description 02/15/2024 8:30 AM EST Office Visit Urology, [facility] [address] [facility] [place] [address] Joaquín Torres MD [address] [place] [address] Elevated prostate specific antigen (PSA)*; Renal cyst; BPH with obstruction/lower urinary tract symptoms Allergies Active Allergy Reactions Criticality Noted Date [...] L upper arm s/p C&C 04/2021, L sabianist s/p Mohs 2020, SCC dorsal R hand [...] 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 This is his highest value to date. He is here with his .He denies significant changes in his voiding. He notes he is healing well from his recent hernia repair. Elevated PSA: Patient is being seen for evaluation of an elevated PSA. Previous evaluation includes referral to urology. Patient has been on no medication. He reports nocturia x 0-2 . Prostate biopsy done Mar 2023. PSA Results: Lab Results Component Value Date/Time PSA - [facility] 8.39 (H) 02/01/2024 08:04 AM PSA - [facility] 5.79 (H) 07/28/2023 10:13 AM PSA - [facility] 6.80 (H) 11/24/2022 08:45 AM PSA SCREENING 1.34 11/20/2010 09:38 AM PSA SCREENING 1.00 11/16/2009 11:39 AM PSA - [facility] 7.07 (H) 09/12/2022 09:51 AM Prostate biopsy Mar 2023: Prostate Biopsy Part Location Core # Core (cm) Pathology Diagnosis [employer] PN inv % SEARCH ENGINEER A Left base 2 2.8 Atrophy B Left mid 2 3.9 Atrophy C Left apex 3 3.3 High-grade PIN D Left anterior 1 2.0 Benign prostatic tissue E Right base 2 1.5 Benign prostatic tissue F Right mid 2 3.5 High-grade PIN G Right apex 1 1.7 Active prostatitis and atrophy H Right anterior 2 3.4 High-grade PIN CORES with CARCINOMA = 0 Current Outpatient Medications Medication Sig Dispense Refill [...] g 3 Vitamin D (Ergocalciferol) 50 MCG (1999 UT) Oral Capsule Taking 2500 per day 1 Capsule 0 Famotidine 20 MG Oral Tablet (Pepcid) Take 1 Tablet by mouth in the morning and 1 Tablet before bedtime. (Patient taking differently: Take 1 Tablet by mouth as needed.) 180 Tablet 3 Amoxicillin 875 MG Oral Tablet Take 1 Tablet by mouth. Take prior to dental procedures (Patient nottaking: Reported on 01/06/2024) Tums Smoothies 750 MG Oral Tablet Chewable [...] 15 doses. (Patient not taking: Reported on 02/05/2024) 10 Tablet 0 No current facility-administered medications for this visit. Review of patient's allergies indicates: Allergen Reactions Ibuprofen Hives Social History: Social History Tobacco Use Smoking status: Never Passive exposure: Never Smokeless tobacco: Never Substance Use Topics Alcohol use: Yes Comment: rare Vaping/E-Cigarette Use Vaping/E-Cigarette Use Never User Vaping/E-Cigarette Substances Vaping/E-Cigarette Devices Family History Problem Relation Name Age of Onset Hypertension Mother Heart Disorder Grandfather (Maternal) Heart Disorder Grandfather (Paternal) Diabetes Grandmother (Paternal) Arthritis Grandmother (Maternal) Past Surgical History: Procedure Laterality Date BREAST LESION,OTHER,EXCISION neck COLONOSCOPY, DIAGNOSTIC (RECTUM) done normal exam repeat in 10 years COLONOSCOPY, DIAGNOSTIC (RECTUM) 11/09/2014 diverticulosis, repeat 10 yrs/[facility] COLONOSCOPY, DIAGNOSTIC (RECTUM) 05/26/2018 sigmoid diverticulosis/normal biopsies/COLONOSCOPY FLEXIBLE PROXIMAL DIAGNOSTIC performed by Sydnie Epps MD at ENDOSCOPY [facility] COLONOSCOPY, DIAGNOSTIC (RECTUM) 06/24/2022 few small and large mouthed diverticula/IC valve lipomatous/hemorrhoids/biopsies show adenomatous polyps/recall 3 years/COLONOSCOPY FLEXIBLE PROXIMAL DIAGNOSTIC performed by Dick Cupl ENDOSCOPY [facility] DENTAL SURGERY PROCEDURE NEC Dental Surgery Procedure EGD, FLEXIBLE, DIAGNOSTIC 03/11/2013 ESOPHAGOGASTRODUODENOSCOPY (EGD), FLEXIBLE, TRANSORAL, DIAGNOSTIC performed by Perez Escudero MD at ENDOSCOPY [facility] EGD, FLEXIBLE, DIAGNOSTIC 04/06/2014 gastritis/ESOPHAGOGASTRODUODENOSCOPY (EGD), FLEXIBLE, TRANSORAL, DIAGNOSTIC performed by Best Dumont MD at ENDOSCOPY [facility] EGD, FLEXIBLE, DIAGNOSTIC 02/22/2018 normal bx/ESOPHAGOGASTRODUODENOSCOPY (EGD), FLEXIBLE, TRANSORAL, DIAGNOSTIC performed by Sydnie Epps MD at ENDOSCOPY [facility] EGD, FLEXIBLE, DIAGNOSTIC 09/02/2021 normal scope / biopsies normal / ESOPHAGOGASTRODUODENOSCOPY (EGD), FLEXIBLE, TRANSORAL, DIAGNOSTIC performed by Sydnie Epps MD at ENDOSCOPY [facility] EGD, W/ENDOSCOPIC US 04/06/2014 normal/ESOPHAGOGASTRODUODENOSCOPY (EGD), FLEXIBLE, TRANSORAL, ENDOSCOPIC ULTRASOUND performed by Best Dumont MD at ENDOSCOPY [facility] LAP;REPAIR RECURRENT HERNIA Left 01/19/2024 LAPAROSCOPIC REPAIR INGUINAL HERNIA RECURRENT performed by Doron Torres MD at OR [facility] MISCELLANEOUS ORDER ([facility] ONLY) 04/25/2010 A-port central venous catheter with port Dr. See REMOVAL OF EPIDIDYMIS LESION REMOVE GALLBLADDER VASECTOMY Past Medical History: Diagnosis Date Asthma, allergic Dyslipidemia, goal to be determined 03/01/2001 Esophageal reflux FAM HX-DIABETES MELLITUS 02/15/2001 Family history of other cardiovascular diseases 02/15/2001 ICD-10 update of inactive term Multiple sclerosis (HCC) Need for prophylactic vaccination with tuberculosis (BCG) vaccine pos ppd/feliberto, inh x 6 mos Other optic neuritis OU; VF 06/18 WNL Patient Active Problem List Diagnosis Dyslipidemia Gastroesophageal reflux disease without esophagitis Multiple sclerosis (HCC) Renal cyst History of nonmelanoma skin cancer Elevated prostate specific antigen (PSA) Recurrent left inguinal hernia Constitutional: (-) fever and (-) chills Male : see HPI Musculoskeletal: (+) joint pain Neurology: (+) loss of balance Psychiatry: (-) negative: no depression or anxiety Physical Exam Nursing note reviewed. Constitutional: Appearance: Normal appearance. Comments: Using cane HENT: Head: Normocephalic and atraumatic. Right Ear: External ear normal. Left Ear: External ear normal. Nose: Nose normal. Mouth/Throat: Mouth: Mucous membranes are moist. Cardiovascular: Pulses: Normal pulses. Pulmonary: Effort: Pulmonary effort is normal. Abdominal: Palpations: Abdomen is soft. Tenderness: There is no abdominal tenderness. Musculoskeletal: Cervical back: Normal range of motion and neck supple. Lymphadenopathy: Cervical: No cervical adenopathy. Skin: Coloration: Skin is not cyanotic or pale. Neurological: Mental Status: He is alert and oriented to person, place, and time. Psychiatric: Attention and Perception: Attention normal. Mood and Affect: Mood and affect normal. Impression/Plan: 68-year-old male with a history of an elevated PSA value. Seen the patient's persistent rise in PSA value will obtain a prostate MRI. The possibility of inflammation after the the patient's hernia repair is noted. Risk variables including the presence of high-grade PIN on the patient's previous biopsy are appreciated. Will see the patient in 3 months timewith a repeat PSA value. If this continues to rise will consider repeat biopsy. Hopefully, this canbe avoided. Above content is personally reviewed. Patient vocalizes good understanding of the treatment plan. Joaquín Torres MD 7:31 AM 02/15/2024 documented in this encounter Nursing Notes * Deanna Corcoran LPN - 02/15/2024 8:17 AM EST 6 month ret. Presents with . No complaints. Inguinal hernia repair 01/19/2024. PSA Results: Lab Results Component Value Date/Time PSA - [facility] 8.39 (H) 02/01/2024 08:04 AM PSA - [facility] 5.79 (H) 07/28/2023 10:13 AM PSA - [facility] 6.80 (H) 11/24/2022 08:45 AM PSA SCREENING 1.34 11/20/2010 09:38 AM PSA SCREENING 1.00 11/16/2009 11:39 AM documented in this encounter Plan of Treatment Upcoming Encounters Date Type Department Care Team (Late st Contact Info) Description 02/15/2024 9:45 AM EST Office Visit Otolaryngology [facility] [address] [facility] [place] [address] Harlor, Aidan Jimbo, DO [address] [place] [address] Arrived 03/09/2024 2:00 PM EST Office Visit General Surgery, [facility] [address] [place] [address] Doron Torres MD [address] [place] [address] 03/17/2024 8:20 AM EST Office Visit Family Practice [facility] [address] [place] [address] Amado Harvey, DO [address] [place] [address] 05/12/2024 11:15 AM EDT Office Visit Urology Stephanie Sam [address] [facility] [address] [place] [address] Joaquín Torres MD [address] [place] [address] 06/06/2024 9:20 AM EDT Office Visit Neurology [facility] [address] [facility] [place] [address] Renetta Dow MD [address] [facility] [place] [address] 07/15/2024 7:45 AM EDT Office Visit MOHS Surgery [facility] [address] [place], [place] [address] Eileen Deluca MD [address] [facility] [place] [address] 02/02/2025 9:40 AM EST Office Visit Dermatology [facility] [address] [place] [address] Kimberly Qureshi PA-C [address] [facility] [place] [address] Scheduled Orders Name Type Priority Associated Diagnoses Orde r Schedule MR PROSTATE, WITH/WITHOUT CONTRAST Medical Imaging Routine Elevated prostate specific antigen (PSA) Ordered: 02/15/2024 PSA WITH FREE PSA IF INDICATED Lab Routine Elevated prostate specific antigen (PSA) Expected: 05/15/2024 (Approximate), Expires: 02/14/2025 Health Maintenance Due Date Last Done Comments [...] this encounter Medical Devices Implanted Type Area Thread Trimmer Device Identifier Shelf Expiration Date Model / Serial / Lot Mesh 13x9cm Monofilament Hernia Anatomical Medium Left Preshaped With Marking Polypropylene Dextile - [id number] Implanted:Qty: 1 on 01/19/2024 by Doron Torres MD at OR [facility] Left: Gillian SMITH 11/16/2027 [id number] / / [id number] documented as of this encounter Visit Diagnoses Diagnosis Elevated prostate specific antigen (PSA)- Primary Renal cyst 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 Question Answer Comments Discussion of Advance Directives occurred with: Patient Care Teams Supervisor Paint Roller Covers Relationship Specialty Start Date End Date Amado Harvey DO [address] [place] [address] PCP - General Family Medicine 06/22/20 documented as of this encounter
--- OUTSIDE RECORDS SUMMARY | 2024-04-03 23:02 | External Medical Summary | Summary of Care ---
Author Name Unknown Organization [facility] Address [address] [place] [address] Phone [phone] Care Team Providers Care Material Expediter Name Role Phone Hira Harvey DO Primary Care Provider Reason for Visit * Reason Comments Skin Check Pt presents for [facility] skin check, reports a small lesion on nose, no other concerns. Hx: NMSC Encounter Details Date Type Department Care Team (Late st Contact Info) Description 01/07/2024 9:00 AM EST Office Visit Dermatology [facility] [place] [address] [facility] [place] [address] Kimberly Qureshi PA-C 200 [place] [address] Skin tumor*; Skin exam, screening for cancer; Scar; History of nonmelanoma skin cancer Allergies No known active allergiesdocumented as of this encounter (statuses as of 01/07/2024) Medications TYLENOL 8 HOUR 650 MG PO [...] mg OralHS, (No instructions reported), Reported on 01/07/2024 Mylanta Coat & Cool 1200-270-80 MG/10ML Oral Suspension (Adrian Carb-Mag Hydrox-Simeth) Take by mouth. Active Rosuvastatin Calcium 5 MG Oral Tablet (Crestor)Indicat ions:Mixed dyslipidemia TAKE 1 TABLET IN THE MORNING 90 Tablet 1 4 Active documented as of this encounter (statuses as of 01/07/2024) Active Problems Problem Noted Date Diagnosed Date Recurrent left inguinal hernia 12/16/2023 Elevated prostate specific antigen (PSA) 023 History of nonmelanoma skin cancer 05/20/2022 Overview (05/20/2022): Hx of BCC R temporal scalp s/p Mohs 05/07, L upper arm s/p C&C 04/2021, L voodoo s/p Mohs 2020, SCC dorsal R hand s/p Mohs 2020 Renal cyst 10/16/2017 Overview (10/16/2017): 09/02 5cm R cyst, 10/03 4.8cm - advised 1 year FU with US Dyslipidemia 03/01/2001 Gastroesophageal reflux disease without esophagi tis Multiple sclerosis documented as of this encounter (statuses as of 01/07/2024) Resolved Problems Problem Noted Date Diagnosed Date [...] as of this encounter (statuses as of 01/07/2024) Immunizations Name Administration Dates Next Due HEP [...] as of this encounter Progress Notes * Kimberly Qureshi PA-C - 01/07/2024 9:00 AM EST SUBJECTIVE: History of Present Illness: Doron Davey is a 68 year old male seen today for follow up of skin check 6 months. Date Last Appointment: 06/04/2023 (in office), Visit date not found (telemedicine) Hx of BCC R temporal scalp s/p Mohs 05/07, L upper arm 04/2021, L voodoo s/p Mohs 2020, SCC dorsal R hand s/p Mohs 2020 Uses sunscreen REVIEW OF SYSTEMS: SKIN: No other new or changing moles. HEME/LYMPH: No new or enlarging lumps or bumps. MEDICA TIONS: Current Outpatient Medications Medication Sig Dispense Refill [...] TABLET IN THE MORNING 90 Tablet 1 No current facility-administered medications for this visit. ALLERG IES: Patient has no known allergies. OBJECTIVE: GEN: Healthy, alert, no distress, appears oriented, pleasant, and cooperative. SKIN: Detailed exam of hair, face including lids and lips, neck, chest, abdomen, back, bilateral upper ext. (arm, hand, fingers), bilateral lower ext. (leg, foot, toes), and palpation of scalp completed and are normal except: 1. Scars- face, arm, hand 2. L nasal bridge- 3mm shiny firm papule ASSESS MENT/PLAN: 1. Hx NMSC - no evidence of recurrence Discussed sun protection with patient including proper use of sunscreens and protective clothing. ABCDs explained 2. BCC vs FP. Biopsy of the lesion noted above to establish and confirm diagnosis. The procedure, risks, benefits, alternatives and expected outcomes were discussed with the patient and consent was obtained. Time out called. Patient identified, procedure verified, site identified and verified. Patient and staff present in agreement. Area prepped with alcohol and anesthetized with 0.5% lidocaine with epinephrine at 1:200,000 concentration. Biopsy of lesion performed. 20% AlCl and bandaging applied. Specimen sent to pathology. Patient instructed in routine post-op care. Discussed sun protection with patient including proper use of sunscreens (30spf, reapply every 2 hours) and protective clothing. Follow-up: 1 year There were no barriers tolearning and no other pain was related to today's visit. The patient and/or person accompanying patient demonstrates understanding of the visit and treatment. Kimberly Qureshi PA-C 01/07/2024 6:04 AM documented in this encounter Nursing Notes * Zelda Falcon CMA - 01/07/2024 9:03 AM EST Chief Complaint Patient presents with Skin Check Pt presents for routine skin check, reports a small lesion on nose, no other concerns. Hx: NMSC documented in this encounter Plan of Treatment Upcoming Encounters Date Type Department Care Team (Latest Contact Info) Description 01/19/2024 7:45 AM EST Hospital Encounter OR [facility], Operating Room [facility] [address] [place] [id number] Doron Torres MD [address] [place] [address] 01/19/2024 7:45 AM EST - 01/19/2024 9:12 AM EST Surgery OR [facility], Operating Room [facility] [address] [place] [address] Doron Torres MD [address] [place] [address] LAPAROSCOPIC REPAIR INGUINAL HERNIA RECURRENT 02/05/2024 9:45 AM EST Office Visit General Surgery, [facility] [address] [place] [address] Doron Torres MD [address] [place] [address] 02/15/2024 8:30 AM EST Office Visit Urology, [facility] [address] [place] [address] Joaquín Torres MD [address] [place] [address] 02/15/2024 9:45 AM EST Office Visit Otolaryngology [facility] [address] [facility] [place] [address] Aidan Han, DO [address] [place] [address] 03/17/2024 8:20 AM EST Office Visit Family Practice [facility] 132 [facility] [place] [address] Hira Harvey, DO [address] [facility] [place] [address] 06/06/2024 9:20 AM EDT Office Visit Neurology [facility] [address] [place] [address] Renetta Dow MD 200 [facility] [place] [address] 02/02/2025 9:40 AM EST Office Visit Dermatology [facility] [address] [place] [address] Kimberly Qureshi PA-C 200 [facility] [place] [address] Pending Results Name Type Priority Associated Diagnoses Date /Time SURGICAL PATHOLOGY Pathology Routine Skin tumor 01/07/2024 9:20 AM EST Scheduled Procedures Name Priority Associated Diagnoses Date/Ti me LAPAROSCOPIC REPAIR INGUINAL HERNIA RECURRENT Recurrent left inguinal hernia 01/19/2024 7:45 AM EST Health Maintenance Due Date Last [...] documented as of this encounter Medical Devices Not on filedocumented as of this encounter Visit Diagnoses Diagnosis Recurrent left inguinal hernia- Primary Inguinal hernia without mention of obstruction or gangrene, recurrent unilateral or unspecified Skin tumor- Primary Neoplasm of uncertain behavior of skin Skin exam, screening for cancer Screening for malignant neoplasm of the skin Scar Scar condition and fibrosis of skin History of nonmelanoma skin cancer Personal history of other malignant neoplasm of skin Recurrent left inguinal hernia Inguinal hernia without mention of obstruction or gangrene, recurrent unilateral or unspecified documented in this encounter Care Teams Material Expediter Relationship Specialty Start Date End Date Hira Harvey DO [address] [facility] [place] [address] PCP - General Family Medicine 06/22/20 documented as of this encounter
--- OUTSIDE RECORDS SUMMARY | 2024-04-03 23:02 | External Medical Summary | Summary of Care ---
Author Name Unknown Organization [facility] Address [address] [place] [address] Phone [phone] Care Team Providers Care Tieing Machine Operator Name Role Phone Hira Harvey DO Primary Care Provider Reason for Visit * Reason Comments Skin Check Pt presents for [facility] skin check, reports a small lesion on nose, no other concerns. Hx: NMSC Encounter Details Date Type Department Care Team (Late st Contact Info) Description 01/07/2024 9:00 AM EST Office Visit Dermatology [facility] [place] 200 [facility] [place] [address] Kimberly Qureshi PA-C 200 [place] [address] Skin tumor*; Skin exam, screening for cancer; [...] L upper arm s/p C&C 04/2021, L [facility]eter[facility] s/p Mohs 2020, SCC dorsal R hand [...] Mohs 05/07, L upper arm 04/2021, L [facility] s/p Mohs 2020, SCC dorsal R hand [...] documented in this encounter Nursing Notes * Gabe Falcon CMA - 01/07/2024 9:03 AM EST Chief Complaint Patient presents with Skin Check Pt presents for routine skin check, reports a small lesion on nose, no other concerns. Hx: NMSC documented in this encounter Miscellaneous Notes * Addendum Note - Gabe Falcon CMA - 01/07/2024 3:33 PM ESTAddended by: GABE FALCON on: 01/07/2024 03:33 PM Modules accepted: Orders documented in this encounter Plan of Treatment Upcoming Encounters Date Type Department Care Team (Latest Contact Info) Description 01/19/2024 7:45 AM EST Hospital Encounter OR [facility], Operating Room [facility] [address] [place] [address] Doron Torres MD [address] [place] [address] 01/19/2024 7:45 AM EST - 01/19/2024 9:12 AM EST Surgery OR [facility], Operating Room [facility] [address] [place] [address] Doron Torres MD [address] [place] [address] LAPAROSCOPIC REPAIR INGUINAL HERNIA RECURRENT 02/05/2024 9:45 AM EST Office Visit General Surgery, [facility] [address] [place] [address] Doron Torres MD [address] [place] [address] 02/15/2024 8:30 AM EST Office Visit Urology, [facility] [address] [place], [place] [address] Joaquín Torres MD [address] [place] [address] 02/15/2024 9:45 AM EST Office Visit Otolaryngology [facility] [address] [place] [address] Aidan Han, DO [address] [place] [address] 03/17/2024 8:20 AM EST Office Visit Family Practice [facility] [address] [place] [address] Hira Harvey, DO [address] [place] [address] 06/06/2024 9:20 AM EDT Office Visit Neurology [facility] [address] [place] [address] Renetta Dow MD [address] [place] [address] 02/02/2025 9:40 AM EST Office Visit Dermatology [facility] [address] [place] [address] Kimberly Qureshi PA-C [address] [place] [address] Pending Results Name Type Priority Associated Diagnoses [...] unspecified documented in this encounter Care Teams Tieing Machine Operator Relationship Specialty Start Date End Date Hira Harvey DO [address] [place], [place] [address] [place] [address] PCP - General Family Medicine 06/22/20 documented as of this encounter
--- OUTSIDE RECORDS SUMMARY | 2024-04-03 23:02 | External Medical Summary | Summary of Care ---
Author Name Unknown Organization [facility] Address [address] [place] [address] Phone [phone] Care Team Providers Care [employer] District Supervisor Name Role Phone Hira Harvey DO Primary Care Provider Reason for Visit * Auth/Cert Specialty Diagnoses / Procedures Referred By Jonathan taylor Referred To Contact Diagnoses Recurrent left inguinal hernia Recurrent left inguinal hernia [K40.91] Procedures LAP;REPAIR RECURRENT HERNIA LAPAROSCOPIC REPAIR INGUINAL HERNIA RECURRENT Doron Torres MD [address] [place] [address] Phone: tel: fax: OR [facility], Operating Room [facility] [address] [place] [address] Phone: tel: Referral ID Status Reason Start Date Expiration Date Visits Re quested Visits Authorized [id number] Encounter Details Date Type Department Care Team (Latest Contact Info) Description 01/19/2024 6:46 AM EST - 01/19/2024 10:22 AM EST Hospital Encounter OR [facility], Operating Room [facility] [address] [place] [phone] Doron Torres MD [address] [place] [phone] Discharge Disposition: Home - Self Care Allergies Active Allergy Reactions Criticality Noted Date Comments Ibuprofen Hives 01/19/2024 documented as of this encounter (statuses as of 01/19/2024) Medications TYLENOL 8 HOUR 650 MG PO [...] Active Vitamin D (Ergocalciferol ) 50 MCG (1999 UT) Oral Capsule Taking 2500 per day 1 Capsule 08/26/19 23 Active Famotidine 20 MG Oral Tablet (Pepcid)Indicat [...] mouth in the morning. 03/02/19 24 Active Esomeprazole Magnesium 20 MG Oral Capsule Delayed Release (NexIUM)Indicat ions:Gastroesop hageal reflux disease without esophagitis Take 1 Capsule by mouth in the morning. 1 hour before the first meal of the day. 90 Capsule 3 05/28/19 24 Active Additional Information Patient taking differently:20 [...] 15 doses. 10 Tablet 01/19/20 24 Active Amoxicillin-Pot Clavulanate 875-125 MG Oral Tablet (Augmentin)Annemarie cations:Abdomin al pain, left lower quadrant Take 1 Tablet by mouth in the morning and 1 Tablet before bedtime. Do all this for 10 days. 20 Tablet 11/10/19 24 2023 Discontinued documented as of this encounter (statuses as of 01/19/2024) Active Problems Problem Noted Date Diagnosed Date Recurrent left inguinal hernia 12/16/2023 Elevated prostate specific antigen (PSA) 023 History of nonmelanoma skin cancer 05/20/2022 Overview (05/20/2022): Hx of BCC R temporal scalp s/p Mohs 05/07, L upper arm s/p C&C 04/2021, L restorationism s/p Mohs 2020, SCC dorsal R hand s/p Mohs 2020 Renal cyst 10/16/2017 Overview (10/16/2017): 09/02 5cm R cyst, 10/03 4.8cm - advised 1 year FU with US Dyslipidemia 03/01/2001 Gastroesophageal reflux disease without esophagi tis Multiple sclerosis documented as of this encounter (statuses as of 01/19/2024) Resolved Problems Problem Noted Date Diagnosed Date [...] as of this encounter (statuses as of 01/19/2024) Immunizations Name Administration Dates Next Due HEP [...] Sign Reading Time Taken Comments Blood Pressure 118/54 01/19/2024 10:00 AM EST Pulse 70 01/19/2024 10:00 AM EST Temperature 36.7 C (98 F) 01/19/2024 10:00 AM EST Respiratory Rate 18 01/19/2024 10:00 AM EST Oxygen Saturation 97% 01/19/2024 10:00 AM EST Inhaled Oxygen Concentration - - Weight 64.4 kg (142 lb) 01/19/2024 7:00 AM EST Height 165.1 cm (5' 5") 01/19/2024 7:00 AM EST Body Mass Index 23.63 01/19/2024 7:00 AM EST documented in this encounter Discharge Instructions * Discharge Instr - AVS* Doron Torres MD - 01/19/2024 8:53 AM EST Discharge Date: 01/19/2024 The information below provides you with the instructions and the list of medications you need to betaking following discharge from the hospital. If you have any questions, please ask before leaving.Please carry this letter with you when you see your doctor in the clinic. If you have questions, you can reach us at the numbers above. Post Anesthesia Instructions: 1. Do not drive today. 2. Resume driving when surgeon permits. 3. Do not make important decisions or sign legal documents today. 4. Call surgeon for: Temperature evaluation greater than 101 degrees Uncontrollable pain Excessive Bleeding Persistent Nausea and vomiting Medication intolerance (nausea, vomiting, or rash) 5. For nausea and vomiting use only clear liquids such as: tea, soda, bouillon until nausea subsides, then gradually increase diet as tolerated. 6. If you have any concerns or questions, call your surgeon's office at [phone] . If the physician is unavailable and it is an emergency, call [phone] or go to the nearest emergency room. Preprinted instructions given: None (Form No.) Special Care / Other: Instructions for: Inguinal Hernia, Laparoscopic Hernia, Umbilical or Ventral Hernia INCISION CARE: If present, remove any outer dressing(s) in 24 hours. The incision(s) may be sealed with camilo, non-dissolving sutures, or dissolving stitches covered with white adhesive tapes known as steri-strips. In any case, there is no need to cover up the incisions again with gauze. TO PREVENT SWELLING: Swelling and bruising around incisions is common. If groin surgery was performed, the swelling can involve the scrotum and penis. Do not be alarmed. Apply an ice pack to the incision (20 min on, 20 min off) for the first 24-48 hours to help with pain and swelling. SHOWER: You may shower 24 hours after surgery and get the incision(s) or steri-strips wet with soapy water and gently pat them dry. If the steri-strips come off in the shower, do not become concerned. If they are still in place 10 days after surgery, you may remove them. PAIN MEDICATION: You will be given a prescription for a narcotic pain medication (usually Vicodin or Percocet). You may use this if necessary; however, narcotics are constipating and may make your bowel movements more painful. Options for non- constipating pain medications include products that include ibuprofen or T ylenol. BOWEL MEDICATION: To combat constipation, you may take over the counter laxatives, fiber therapy, or prune juice. URINATION: If you cannot urinate, sit in a warm bath then try again. Activity : Rest today. and Do not do any heavy lifting (more than 10 pounds) or any vigorous exercise for 6 weeks. Return to School or Work: Limitations 1-2 weeks; see the activity restrictions listed above Diet: Resume previous diet Follow-up Visit with: Dr. Torres When: 2 weeks Discharged To: Home documented in this encounter H&P Notes * Doron Torres MD - 01/19/2024 7:21 AM EST HISTORY & PHYSICAL INTERVAL NOTE - General Surgery [facility] [address] [address] History and Physical Update: Name: Doron Davey Location: OR [facility] Date: 01/19/2024 Time: 7:21 AM DATE OF HISTORY AND PHYSICAL: 12/16/2023 BP: 150 mmHg/82 mmHg (01/19/24699) Pulse: 66 (01/19/24699) Resp: 16 (01/19/24699) Temp: 36.22 C (01/19/24699) Temp Summary: Temp Min: 36.2 C (97.2 F) Max: 36.2 C (97.2 F) SpO2: 97 % (01/19/24699) O2 flow rate: Supplemental O2 Delivery: Room Air, None (01/19/24699) Does patient take a beta noman? No Did patient stop anticoagulants: None Heart Exam: regular rate and rhythm Lung Exam: clear to auscultation bilaterally Other Pertinent Physical Exam: none I have reviewed the H&P previously performed and examined the patient today. There are no new findings noted. * Doron Torres MD - 01/19/2024 7:21 AM EST Doron Davey is s/p a left inguinal hernia repair with mesh on 03/30/2023. He has had a few episodes of diverticulitis and now has constant pain in his left lower quadrant. A CT scan demonstrated no issue with the left inguinal hernia repair and mild diverticulitis. He has been on multiple courseof antibiotics. He denies fevers or chills currently. He has pain when he has bowel movements. He returns following the ultrasound. The ultrasound demonstrates a recurrent hernia. PE: Temperature 36.5 C (97.7 F). Temp 36.5 C (97.7 F) General: alert, healthy, and no distress Head: Normocephalic, No masses, lesions, tenderness or abnormalities Lungs: CTA bilaterally Heart: RRR, no M/G/R Eye Exam: conjunctiva are pink and non-injected, sclera clear Abdomen: soft, non-tender, and incision well healed; no hernia palpable in left inguinal region Extremities: no edema, no skin discoloration, no clubbing, no cyanosis Skin: skin color, texture, turgor are normal, no rashes or significant lesions Assessment: Recurrent left inguinal hernia. We discussed the risks and benefits of a laparoscopic left inguinal hernia repair. All questions were answered and he is agreeable to proceed. Consent has been obtained. We will set this up at the earliest convenience at the surgery center. Doron Torres MD 12/16/2023 documented in this encounter Nursing Notes * Celina Cavazos RN - 01/19/2024 10:00 AM EST Pt given d'c instructions. Pt concerned about pain returning. Pt med with po meds . Pt gabrielle po fluids and crackers * Celina Cavazos RN - 01/19/2024 9:29 AM EST Pt sitting up and taking po fluids and gabrielle well. Pt states pain is improving * Celina Cavazos RN - 01/19/2024 9:00 AM EST Patient received to pacu 1 status post hernia repair. Patient able to rouse. no pain. no nausea. Respirations are even and unlabored on 6l/min mask. NSR on monitor. Abdomen soft and non distended. Incision open to and air, clean, dry and intact, ice pack applied. Vital signs stable. * Gina Shine RN - 01/19/2024 6:57 AM EST Surgical consent verified with patient. Patient agrees with listed procedure and verified signature. documented in this encounter Plan of Treatment Upcoming Encounters Date Type Department Care Team (Late st Contact Info) Description 02/05/2024 9:45 AM EST Office Visit General Surgery, [facility] [address] [facility] [place] [address] Doron Torres MD [address] [facility] [place] [address] 02/15/2024 8:30 AM EST Office Visit Urology, [facility] [address] [facility] [place] [address] Joaquín Torres MD [address] [place] [address] 02/15/2024 9:45 AM EST Office Visit Otolaryngology [facility] [address] [facility] [place] [address] Aidan Han DO [address] [place] [address] 03/17/2024 8:20 AM EST Office Visit Family Practice [facility] [address] [place] [address] Hira Harvey DO [address] [place] [address] 06/06/2024 9:20 AM EDT Office Visit Neurology [facility] [address] [place] [address] Renetta Dow MD [address] [facility] [place] [address] 02/02/2025 9:40 AM EST Office Visit Dermatology [facility] [address] [place] [address] Kimberly Qureshi PA-C [address] [facility] [place] [address] Scheduled Procedures Name Priority Associated Diagnoses Date/Ti me LAPAROSCOPIC REPAIR INGUINAL HERNIA RECURRENT Recurrent left inguinal hernia 01/19/2024 7:35 AM EST Health Maintenance Due Date Last [...] this encounter Medical Devices Implanted Type Area Biomathematician Device Identifier Shelf Expiration Date Model / Serial / Lot Mesh 13x9cm Monofilament Hernia Anatomical Medium Left Preshaped With Marking Polypropylene Dextile - [id number] Implanted:Qty: 1 on 01/19/2024 by Doron Torres MD at OR [facility] Left: Groin COVIDIEN 11/16/2027 [id number] / / [id number] documented as of this encounter Visit Diagnoses Diagnosis Recurrent left inguinal hernia- Primary Inguinal hernia without mention of obstruction or gangrene, recurrent unilateral or unspecified documented in this encounter Administered Medications Inactive Administered Medications - up to 3 most recent administrations Medication Order MAR Action Action Date Dose Rate Site ceFAZolin in dextrose (Ancef) ivpb 2 g 2 g, IV Piggyback, PREOP, 1 dose, First dose on Thu01/19/24 at 0800, Administer 60 minutes prior to skin incision, Pre-Op New Bag 01/19/2024 7:48 AM EST 2 g 100 mL/hr chlorhexidine gluconate cloth 2 % pad 1 Pad 1 Pad, External, PREOP, First dose on Thu01/19/24 at 0800, Last dose on Thu01/19/24 at 0800, For 1 dose, Cleanse surgical site area immediately before transferring intra-op, Pre-Op Given 01/19/2024 7:38 AM EST 1 Pad dexAMETHasone Sodium Phosphate (Decadron) 4 MG/ML inj 4 mg 4 mg, IV Push, PRN Nausea, Starting on Thu01/19/24 at 0906, Until Thu01/19/24 at 1422, For 1 dose, PROTECT FROM LIGHT, PACU fentaNYL (PF) inj 25 mcg 25 mcg, IV Push, PRN Pain, Severe, Starting on Thu01/19/24 at 0906, Until Thu01/19/24 at 1422, For 6 doses, When given IV Push its recommended that the dose be given over 3 to 5 minutes., PACU Isolyte-S pH 7.4 infusion Intravenous, at 100 mL/hr, Plasma-LYTE 148, isolyte-S, and isolyte-S pH 7.4 are considered equivalent - including for MAR barcode scanning., CONTINUOUS, Starting on Thu01/19/24 at 0730, Until Thu01/19/24 at 1422, Pre-Op Restarted 01/19/2024 8:48 AM EST Continue from Pre-Op 01/19/2024 7:46 AM EST 100 mL/hr New Bag 01/19/2024 7:14 AM EST 100 mL/hr ondansetron (Zofran) inj 4 mg 4 mg, IV Push, PRN Nausea, Starting on Thu01/19/24 at 0906, Until Thu01/19/24 at 1422, For 1 dose, PACU oxyCODONE (Oxy IR) tab 5 mg 5 mg, Oral, ONCE, On Thu01/19/24 at 1015, For 1 dose, PACU Given 01/19/2024 9:55 AM EST 5 mg documented in this encounter Active and Recently Administered Medications Times are shown in EST. Scheduled Medication Order 01/17/2024 01/18/2024 01/19/2024 ceFAZolin in dextrose (Ancef) ivpb 2 g (COMPLETED) 2 g, IV Piggyback, PREOP, 1 dose, First dose on Thu01/19/24 at 0800, Administer 60 minutes prior to skin incision, Pre-Op 0748 (New Bag - Prov ider: Gina Shine RN) chlorhexidine gluconate cloth 2 % pad 1 Pad (COMPLETED) 1 Pad, External, PREOP, First dose on Thu01/19/24 at 0800, Last dose on Thu01/19/24 at 0800, For 1 dose, Cleanse surgical site area immediately before transferring intra-op, Pre-Op 0738 (Given - Provid er: Gina Shine RN) oxyCODONE (Oxy IR) tab 5 mg (COMPLETED) 5 mg, Oral, ONCE, On Thu01/19/24 at 1015, For 1 dose, PACU 0955 (Given - Provid er: Celina Cavazos RN) Continuous Medication Order 01/17/2024 01/18/2024 01/19/2024 Isolyte-S pH 7.4 infusion Intravenous, at 100 mL/hr, Plasma-LYTE 148, isolyte-S, and isolyte-S pH 7.4 are considered equivalent - including for MAR barcode scanning., CONTINUOUS, Starting on Thu01/19/24 at 0730, Until Thu01/19/24 at 1422, Pre-Op 0714 (New Bag - Prov ider: Gina Shine RN)0746 (Continue from Pre-Op - Provider: Anabell Ramos CRNA)0847 (Paused - Provider: Anabell Ramos CRNA - Comment: Switch to gravity)0848 (Restarted - Provider: Anabell Ramos CRNA) PRN Medication Order 01/17/2024 01/18/2024 01/19/2024 BUPivacaine-EPINEPHrine (Sensorcaine W/ Epi) 0.5%-1:881486 inj (CANCELED) ONCE PRN INTRA PROCEDURE, Starting on Thu01/19/24 at 0818, Until Thu01/19/24 at 0851, Intra-Op 0818 (Given - Provid er: Doron Torres MD - Comment: x3 abdominal ports) ceFAZolin 1,000 mg in sodium chloride IR 0.9 % 10 mL irrigation (CANCELED) ONCE PRN INTRA PROCEDURE, Starting on Thu01/19/24 at 0836, Until Thu01/19/24 at 0851, Intra-Op 0836 (Given - Provid er: Doron Torres MD - Comment: mixed in 500mls nsss irrigation to soak mesh) dexAMETHasone Sodium Phosphate (Decadron) 4 MG/ML inj 4 mg 4 mg, IV Push, PRN Nausea, Starting on Thu01/19/24 at 0906, Until Thu01/19/24 at 1422, For 1 dose, PROTECT FROM LIGHT, PACU fentaNYL (PF) inj 25 mcg 25 mcg, IV Push, PRN Pain, Severe, Starting on Thu01/19/24 at 0906, Until Thu01/19/24 at 1422, For 6 doses, When given IV Push its recommended that the dose be given over 3 to 5 minutes., PACU ondansetron (Zofran) inj 4 mg 4 mg, IV Push, PRN Nausea, Starting on Thu01/19/24 at 0906, Until Thu01/19/24 at 1422, For 1 dose, PACU documented in this encounter Advance Directives * Full Code (Latest Code Status on File) Date Activated Date Inactivated Comments 01/19/2024 7:23 AM 01/19/2024 2:22 PM This order r eflects the patients wishes and were consensually agreed upon. Question Answer Comments Discussion of Advance Directives occurred with: Patient Care Teams [employer] District Supervisor Relationship Specialty Start Date End Date Hira Harvey DO [address] [place] [address] PCP - General Family Medicine 06/22/20 documented as of this encounter
--- OUTSIDE RECORDS SUMMARY | 2024-04-03 23:02 | External Medical Summary | Summary of Care ---
Author Name Unknown Organization [facility] Address [address] [place] [address] Phone [phone] Care Team Providers Care Garment Inspector Name Role Phone Amado Harvey DO Primary Care Provider Reason for Visit * Reason Comments eRx-Medication Refill Encounter Details Date Type Department Care Team (Late st Contact Info) Description 12/24/2023 [facility] [address] [facility] [address] Deanna Lujan CR[facility] [address] [facility] [address] Mixed dyslipidemia Allergies No known active allergiesdocumented as of this encounter (statuses as of 12/24/2023) Medications Medication Sig Dispensed Refills Start Date End Date Status TYLENOL 8 HOUR 650 MG PO TBCRIndications:M ultiple sclerosis (HCC) 2 TABLETS NEEDED 10 Tab 0 2 Active Multiple Vitamins-Minerals (MULTIVITAMIN GUMMIES ADULT) chewable tablet [...] bedtime for spasticity as needed, Reported on 12/04/2023 Vitamin B Complex Oral Tablet Take 1 Tablet by mouth in the morning. Active Vitamin C 100 MG Oral Tablet Take 1 Tablet by mouth in the morning. Active Fluticasone Propionate 50 MCG/ACT Nasal Suspension (Flonase)Indicati ons:ETD (Eustachian tube dysfunction), left USE 2 SPRAYS IN EACH NOSTRIL DAILY 48 g 3 2 Active Vitamin D (Ergocalciferol) 50 MCG (1999 UT) Oral Capsule Taking 2500 per day 1 Capsule 3 Active Famotidine 20 MG Oral Tablet (Pepcid)Indicatio ns:Gastroesophage al reflux disease without esophagitis Take 1 Tablet by mouth in the morning and 1 Tablet before bedtime. 180 Tablet 3 4 Active Additional Information Patient taking differently:20 mg OralPRN, Reported on 12/10/2023 Amoxicillin 875 MG Oral Tablet Take 1 Tablet by mouth. Take prior to dental procedures 4 Active Tums Smoothies 750 MG Oral Tablet Chewable (calcium CARBonate) Take 300 mg by mouth as needed. 4 Active Cholecalciferol 50 MCG (2000 UT) Oral Capsule Take 1 Capsule by mouth in the morning. 4 Active Esomeprazole Magnesium 20 MG Oral Capsule Delayed Release (NexIUM)Indicatio ns:Gastroesophage al reflux disease without esophagitis Take 1 Capsule by mouth in the morning. 1 hour before the first meal of the day. 90 Capsule 3 4 Active Additional Information Patient taking differently:20 mg OralHS, (No instructions reported), Reported on 12/04/2023 Mylanta Coat & Cool 1200-270-80 MG/10ML Oral Suspension (Adrian Carb-Mag Hydrox-Simeth) Take by mouth. Active Rosuvastatin Calcium 5 MG Oral Tablet (Crestor)Indicati ons:Mixed dyslipidemia TAKE 1 TABLET IN THE MORNING 90 Tablet 1 4 Active Rosuvastatin Calcium 5 MG Oral Tablet (Crestor)Indicati ons:Mixed dyslipidemia Take 1 Tablet by mouth in the morning. 90 Tablet 1 4 12/24/19 24 Discontinued documented as of this encounter (statuses as of 12/24/2023) Active Problems Problem Noted Date Diagnosed Date Recurrent left inguinal hernia 12/16/2023 Elevated prostate specific antigen (PSA) 023 History of nonmelanoma skin cancer 05/20/2022 Overview: Hx of BCC R temporal scalp s/p Mohs 05/07, L upper arm s/p C&C 04/2021, L buddhism s/p Mohs 2020, SCC dorsal R hand s/p Mohs 2020 Renal cyst 10/16/2017 Overview: 09/02 5cm R cyst, 10/03 4.8cm - advised 1 year FU with US Dyslipidemia 03/01/2001 Gastroesophageal reflux disease without esophagi tis Multiple sclerosis documented as of this encounter (statuses as of 12/24/2023) Resolved Problems Problem Noted Date Diagnosed Date Resolved Date Encounter for central line care 07/29/2022 02/03/2023 Prediabetes 11/26/2020 07/01/2023 Overview: Per Prediabetes protocol Actinic keratosis 12/28/2012 02/03/2023 Verruca 12/28/2012 11/17/2016 Sun-damaged skin 12/28/2012 10/16/2017 Asthma with severity to be determined 08/09/2009 11/16/2009 Overview: Per Asthma Taxonomy ICD-10 update of inactive term ADVANCE DIRECTIVE INFORMATION 07/30/2004 10/16/2017 Overview: No, Advance Directive brochure given to patient at prior appointment. Family history of other card iovascular diseases 02/15/2001 11/17/2016 Overview: ICD-10 update of inactive term FAM HX-DIABETES MELLITUS 02/15/200103/2016 ABDOMINAL PAIN, RIGHT UPPER QUADRANT 02/15/2001 10/27/2016 Abdominal pain, generalized 02/15/2001 10/27/2016 Asthma, allergic 08/09/2009 VACCIN FOR TUBERCULOSIS 01/16 documented as of this encounter (statuses as of 12/24/2023) Immunizations Name Administration Dates Next Due HEP [...] Assigned at Male 06/10/2022 3:12 PM EDT Gender Identity Male 06/10/2022 3:12 PM EDT Sexual Orientation Straight 06/10/2022 3: 12 PM EDT Job Start Date Occupation Industry Not on file Not on file Not on file documented as of this encounter Miscellaneous Notes * Telephone Encounter - Nida West RP - 12/24/2023 4:59 PM EST * Telephone Encounter - Nida West RP - 12/24/2023 4:59 PM ESTSigned Prescriptions: Disp Refills Rosuvastatin Calcium 5 MG Oral Tablet (Cre*90 Tab*1 Sig: TAKE 1 TABLET IN THE MORNING Authorizing Provider: AMADO HARVEY Ordering User: NIDA WEST documented in this encounter Plan of Treatment Upcoming Encounters Date Type Department Care Team (Latest Contact Info) Description 01/07/2024 9:00 AM EST Office Visit Dermatology [facility] [address] [place] [address] Kimberly Qureshi PA-C [address] [place] [address] 01/19/2024 8:57 AM EST Hospital Encounter OR [facility], Operating Room [facility] [address] [place] [phone] Doron Torres MD [address] [place] [address] 01/19/2024 8:57 AM EST - 01/19/2024 10:24 AM EST Surgery OR [facility], Operating Room [facility] [address] [place] [phone] Doron Torres MD [address] [place] [address] LAPAROSCOPIC REPAIR INGUINAL HERNIA RECURRENT 02/05/2024 9:45 AM EST Office Visit General Surgery, [facility] [address] [place] [address] Doron Torres MD [address] [place] [address] 02/15/2024 8:30 AM EST Office Visit Urology, [facility] [address] [place] [address] Joaquín Torres MD [address] [place] [address] 02/15/2024 9:45 AM EST Office Visit Otolaryngology [facility] [address] [place] [address] Aiadn Han, DO [address] [place] [address] 03/17/2024 8:20 AM EST Office Visit Family Practice [facility] [address] [place] [address] Amado Harvey, DO [address] [place] [address] 06/06/2024 9:20 AM EDT Office Visit Neurology [facility] [address] [place] [address] [place] [address] Renetta Dow MD [address] [place] [address] Scheduled Procedures Name Priority Associated Diagnoses Date/Ti ms LAPAROSCOPIC REPAIR INGUINAL HERNIA RECURRENT Recurrent left inguinal hernia 01/19/2024 8:57 AM EST Health Maintenance Due Date Last [...] obstruction or gangrene, recurrent unilateral or unspecified Mixed dyslipidemia Mixed hyperlipidemia Recurrent left inguinal hernia Inguinal hernia without mention of obstruction or gangrene, recurrent unilateral or unspecified documented in this encounter Care Teams Garment Inspector Relationship Specialty Start Date End Date Amado Harvey DO [address] [place] [address] PCP - General Family Medicine 06/22/20 documented as of this encounter
--- OUTSIDE RECORDS SUMMARY | 2024-04-03 23:02 | External Medical Summary | Summary of Care ---
Author Name Unknown Organization [facility] Address [address] [place] [address] Phone [phone] Care Team Providers Care Manager Alliance Name Role Phone Hira Harvey DO Primary Care Provider Reason for Referral * Evaluate & Treat - Unlimited Visits (Within 30 days (routine)) - Authorized Specialty Diagnoses / Procedures Referred By Jonathan taylor Referred To Contact Dermatology Diagnoses Skin tumor Kimberly Thompson PA-C [address] [place] [address] Phone: tel: fax: Referral ID Status Reason Start Date Expiration Date Visits Requested Visits Authorized [id number] Authorized Specialty Services Required 4 [phone] Question Answer Referral Priority Within 30 days (routine) Where should this appointment be scheduled? [facility] Are you referring the patient for Mohs Surgery and have a current positive skin cancer biopsy result? Yes Type of Procedure MOHS Surgery Reason for Visit * Reason Comments Skin Check Pt presents for rout ine skin check, reports a small lesion on nose, no other concerns. Hx: NMSC Encounter Details Date Type Department Care Team (Late st Contact Info) Description 01/07/2024 9:00 AM EST Office Visit Dermatology [place] [facility] [place] [address] [place] [address] [address] Kimberly Thompson PA-C [address] [facility] [place], [place] [address] Skin tumor*; Skin exam, screening for cancer; Scar; History of nonmelanoma skin cancer Allergies No known active allergiesdocumented as of this encounter (statuses as of 01/12/2024) Medications TYLENOL 8 HOUR 650 MG PO [...] as of this encounter (statuses as of 01/12/2024) Active Problems Problem Noted Date Diagnosed Date [...] as of this encounter (statuses as of 01/12/2024) Resolved Problems Problem Noted Date Diagnosed Date [...] as of this encounter (statuses as of 01/12/2024) Immunizations Name Administration Dates Next Due HEP [...] 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 Cholecalciferol 50 MCG (1999 UT) Oral Capsule [...] understanding of the visit and treatment. Kimberly Thompson PA-C 01/07/2024 6:04 AM documented in this encounter Nursing Notes * Gabe Puckett CMA - 01/07/2024 9:03 AM EST Chief Complaint Patient presents with Skin Check Pt presents for routine skin check, reports a small lesion on nose, no other concerns. Hx: NMSC documented in this encounter Miscellaneous Notes * Addendum Note - Kimberly Thomspon PA-C - 01/12/2024 3:03 PM ESTAddended by: KIMBERLY THOMPSON on: 01/12/2024 03:03 PM Modules accepted: Orders * Result Encounter Note - Kimberly Thompson PA-C - 01/12/2024 3:03 PM EST Schedule Mohs please, referral placed A. Skin, L nasal bridge, shave: Basal cell carcinoma, at least nodular type * Addendum Note - Gabe Puckett CMA - 01/07/2024 3:33 PM ESTAddended by: GABE PUCKETT on: 01/07/2024 03:33 PM Modules accepted: Orders documented in this encounter Plan of Treatment Upcoming Encounters Date Type Department Care Team (Latest Contact Info) Description 01/19/2024 7:45 AM EST Hospital Encounter OR [facility], Operating Room [facility] [address] [place] [address] Doron Torres MD [address] [place] [address] 01/19/2024 7:45 AM EST - 01/19/2024 9:12 AM EST Surgery [facility], Operating Room [facility] [address] [place] [address] Doron Torres MD [address] [place] [address] LAPAROSCOPIC REPAIR INGUINAL HERNIA RECURRENT 02/05/2024 9:45 AM EST Office Visit General Surgery, [facility] [address] [place] [address] Doron Torres MD [address] [place] [address] 02/15/2024 8:30 AM EST Office Visit Urology, [facility] 132 [facility] [place] [address] Joaquín Torres MD [address] [place] [address] 02/15/2024 9:45 AM EST Office Visit Otolaryngology [facility] 132 [place] [address] Aidan Han, DO [facility] [address] 03/17/2024 8:20 AM EST Office Visit Family Practice [facility] 132 [facility] [place] [address] Hira Harvey, DO [facility] [address] 06/06/2024 9:20 AM EDT Office Visit Neurology [facility] [address] [place] [address] Renetta Dow MD 200 [facility] [place] [address] 02/02/2025 9:40 AM EST Office Visit Dermatology [facility] [address] [place] [address] Kimberly Thompson PA-C 200 [facility] [place], [place] [address] Scheduled Procedures Name Priority Associated Diagnoses Date/Ti nv LAPAROSCOPIC REPAIR INGUINAL HERNIA RECURRENT Recurrent left inguinal hernia 01/19/2024 7:45 AM EST Scheduled Referrals Name Type Priority Associated Diagnoses Orde r Schedule MOHS SURGERY REFERRAL OP Referral Within 30 days (routine) Skin tumor Ordered: 01/12/2024 Health Maintenance Due Date Last Done Comments [...] Not on filedocumented as of this encounter Procedures Procedure Name Priority Date/Time Associated Diagnosis Comments SURGICAL PATHOLOGY Routine 01/07/2024 9: 20 AM EST Skin tumor DERM IMAGE (SITE) Routine 01/07/2024 Skin tumor Skin exam, screening for cancer Scar History of nonmelanoma skin cancer documented in this encounter Results * SURGICAL PATHOLOGY (01/07/2024 9:20 AM EST) Final Diagnosis A. Skin, L nasal bridge, shave: Basal cell carcinoma, at least nodular type 01/11/2024 5:56 PM EST [facility] Clinical History See Order Comments 01/11/2024 5:56 PM EST [facility]ORY [facility] Order Comments L nasal bridge- 3mm shiny firm papule. BCC vs FP 01/11/2024 5:56 PM EST [facility] Gross Description A. Skin. Received in formalin with a container labeled with "Doron Davey", "[id number]", "1955" and " left nasal bridge". Received is a 0.4 x 0.4 cm skin shave. The skin surface has a banks to light brown, slightly raised, firm shiny, mottled scaly papule that encompasses the entire specimens surface. The underlying tissue is inked. The specimen is intact and submitted in cassette A1. Gross By: 01/11/2024 5:56 PM EST [facility]ORY [facility] Sign Out Location Pathologist sign out performed at [facility] ([facility]), [address] [place] [id number]. 01/11/2024 5:56 PM EST [facility]ORY [facility] Photographic images and diagrams represent cardenas findings in this case; they are not intended to replace a complete review of the final diagnostic report. The following statement applies to Flow Cytometry, Histology, In situ Hybridization Assays and Molecular Genetics. This test was developed and performed at [facility] and its performance characteristics determined by [facility]. It has not been cleared or approved by the U.S. Food and Drug Administration. The FDA has determined that such clearance or approval is not necessary. This test is used for clinical purposes. It should not be regarded as investigational or for research. Special stains, including histochemical stains, and studies using immunologic and KIMMY methodology (where applicable) are performed with appropriate positive and negative control reactions. 01/11/2024 5:56 PM EST LABORATORY [facility] Tissue Skin structure / Unknown 01/07/2024 9:20 AM EST 01/07/2024 9:20 AM EST Comment:L nasal bridge- 3mm shiny firm papule. BCC vs FP us Kimberly Thompson PA-C LAB PATHOLOGY ORDERABLE S Final Result LAB[facility]ATORY [facility] [address] [facility] [place] [address] * DERM IMAGE (SITE) (01/07/2024) 01/07/2024 us Kimberly Thompson PA-C DIGITAL PHOTOGRAPHY Fin al Result documented in this encounter Visit Diagnoses Diagnosis Recurrent left [...] unspecified documented in this encounter Care Teams Manager Alliance Relationship Specialty Start Date End Date Hira Harvey DO [address] [place] [address] [place] [address] PCP - General Family Medicine 06/22/20 documented as of this encounter
--- OUTSIDE RECORDS SUMMARY | 2024-04-03 23:02 | External Medical Summary | Summary of Care ---
Author Name Unknown Organization [facility] Address [address] [place] [address] Phone [phone] Care Team Providers Care Inserter Operator Name Role Phone Hira Harvey DO Primary Care Provider Reason for Visit * Reason Comments Skin Check Pt presents for [facility] skin check, reports a small lesion on nose, no other concerns. Hx: NMSC Encounter Details Date Type Department Care Team (Late st Contact Info) Description 01/07/2024 9:00 AM EST Office Visit Dermatology [facility] [place] 200 [facility] [place] [address] Kimberly Qureshi PA-C 200 [facility] [place] [address] Skin tumor*; Skin exam, screening for cancer; Scar; History of nonmelanoma skin cancer Allergies No known active allergiesdocumented as of this encounter (statuses as of 01/08/2024) Medications TYLENOL 8 HOUR 650 MG PO [...] as of this encounter (statuses as of 01/08/2024) Active Problems Problem Noted Date Diagnosed Date [...] as of this encounter (statuses as of 01/08/2024) Resolved Problems Problem Noted Date Diagnosed Date [...] as of this encounter (statuses as of 01/08/2024) Immunizations Name Administration Dates Next Due HEP [...] with the assessment and plan of Kimberly Qureshi PA-C I was available for consultation during and after the visit Leonard Mancini MD 01/08/2024 4:56 AM * Kimberly Qureshi PA-C - 01/07/2024 9:00 AM EST SUBJECTIVE: History of Present Illness: Doron Davey is a 68 year old male seen today for follow up of skin check 6 months. Date Last Appointment: 06/04/2023 (in office), Visit date not found (telemedicine) Hx of BCC R temporal scalp s/p Mohs 05/07, L upper arm 04/2021, L samaritan s/p Mohs 2020, SCC [...] Encounter OR [facility], Operating Room [facility] [address] [address] Doron Torres MD [address] [place] [address] 01/19/2024 7:45 AM EST - 01/19/2024 9:12 AM EST Surgery OR [facility], Operating Room [facility] [address] [phone] Doron Torres MD [address] [place] [address] LAPAROSCOPIC REPAIR INGUINAL HERNIA RECURRENT 02/05/2024 9:45 AM EST Office Visit General Surgery, [facility] [address] [place] [address] Doron Torres MD [address] [place] [address] 02/15/2024 8:30 AM EST Office Visit Urology, [facility] [address] [place] [address] Joaquín Torres MD [address] [place] [address] 02/15/2024 9:45 AM EST Office Visit Otolaryngology [facility] [address] [place] [address] Aidan Han, DO [address] [place] [address] 03/17/2024 8:20 AM EST Office Visit Family Practice [facility] [address] [place] [address] Hira Harvey, DO [address] [place] [address] 06/06/2024 9:20 AM EDT Office Visit Neurology [facility] [address] [place] [address] [address] Renetta Dow MD [address] [place] [address] 02/02/2025 9:40 AM EST Office Visit Dermatology [facility] [address] [place] [address] [address] Kimberly Qureshi PA-C 200 [facility] [place] [address] Pending Results Name Type Priority Associated Diagnoses [...] Procedure Name Priority Date/Time Associated Diagnosis Comments DERM IMAGE (SITE) Routine 01/07/2024 Skin tumor Skin exam, screening for cancer Scar History of nonmelanoma skin cancer documented in this encounter Results * DERM IMAGE (SITE) (01/07/2024) 01/07/2024 Kimberly Qureshi PAAayushC DIGITAL PHOTOGRAPHY Fin al Result documented in [...] unspecified documented in this encounter Care Teams Inserter Operator Relationship Specialty Start Date End Date Hira Harvey DO [address] [place] [address] [place] [address] PCP - General Family Medicine 06/22/20 documented as of this encounter
--- OUTSIDE RECORDS SUMMARY | 2024-04-03 23:02 | External Medical Summary | Summary of Care ---
Author Name Unknown Organization [facility] Address [address] [place] [address] Phone [phone] Care Team Providers Care Sand Technician Name Role Phone Hira Harvey DO Primary Care Provider Reason for Visit * Reason Comments Outpatient Testing Encounter Details Date Type Department Care Team (Late st Contact Info) Description 12/21/2023 9:00 AM EST Laboratory Laboratory, [place] [address] [place] [address] [place], [facility] [address] [place], [place] [id number] Pre-op testing Allergies No known active allergiesdocumented as of this encounter (statuses as of 12/21/2023) Medications Medication Sig Dispensed Refills Start Date End Date Status TYLENOL 8 HOUR 650 MG PO TBCRIndications:Mul tiple sclerosis (HCC) 2 TABLETS NEEDED 10 Tab 0 06/17/2011 Active Multiple Vitamins-Minerals (MULTIVITAMIN GUMMIES ADULT) chewable tablet Take 1 Tablet by mouth in the morning. Active polyethylene glycol 3350 (MIRALAX) packet Take 1 Packet by mouth in the morning. Active diazepam (VALIUM) 5 MG Tablet 1/2 to 1 tab at bedtime for spasticity 90 Tab 1 04/28/2018 Active Additional Information Patient taking differently: 5 mg Oral Q6H PRN, 1/2 to 1 tab at bedtime for spasticity as needed, Reported on 12/04/2023 Vitamin B Complex Oral Tablet Take 1 Tablet by mouth in the morning. Active Vitamin C 100 MG Oral Tablet Take 1 Tablet by mouth in the morning. Active Fluticasone Propionate 50 MCG/ACT Nasal Suspension (Flonase)Indication s:ETD (Eustachian tube dysfunction), left USE 2 SPRAYS IN EACH NOSTRIL DAILY 48 g 3 05/22/2021 Active Vitamin D (Ergocalciferol) 50 MCG (1999 UT) Oral Capsule Taking 2500 per day 1 Capsule 08/25/2022 Active Famotidine 20 MG Oral Tablet (Pepcid)Indications :Gastroesophageal reflux disease without esophagitis Take 1 Tablet by mouth in the morning and 1 Tablet before bedtime. 180 Tablet 3 05/15/2023 Active Additional Information Patient taking differently:20 mg OralPRN, Reported on 12/10/2023 Amoxicillin 875 MG Oral Tablet Take 1 Tablet by mouth. Take prior to dental procedures 04/27/2023 Active Tums Smoothies 750 MG Oral Tablet Chewable (calcium CARBonate) Take 300 mg by mouth as needed. 03/02/2023 Active Cholecalciferol 50 MCG (1999 UT) Oral Capsule Take 1 Capsule by mouth in the morning. 03/02/2023 Active Esomeprazole Magnesium 20 MG Oral Capsule Delayed Release (NexIUM)Indications :Gastroesophageal reflux disease without esophagitis Take 1 Capsule by mouth in the morning. 1 hour before the first meal of the day. 90 Capsule 3 05/28/2023 Active Additional Information Patient taking differently:20 mg OralHS, (No instructions reported), Reported on 12/04/2023 Rosuvastatin Calcium 5 MG Oral Tablet (Crestor)Indication s:Mixed dyslipidemia Take 1 Tablet by mouth in the morning. 90 Tablet 1 07/21/2023 Active Mylanta Coat & Cool 1200-270-80 MG/10ML Oral Suspension (Adrian Carb-Mag Hydrox-Simeth) Take by mouth. Active documented as of this encounter (statuses as of 12/21/2023) Active Problems Problem Noted Date Diagnosed Date Recurrent left inguinal hernia 12/16/2023 Elevated prostate specific antigen (PSA) 023 History of nonmelanoma skin cancer 05/20/2022 Overview: Hx of BCC R temporal scalp s/p Mohs 05/07, L upper arm s/p C&C 04/2021, L uatsdin s/p Mohs 2020, SCC dorsal R hand s/p Mohs 2020 Renal cyst 10/16/2017 Overview: 09/02 5cm R cyst, 10/03 4.8cm - advised 1 year FU with US Dyslipidemia 03/01/2001 Gastroesophageal reflux disease without esophagi tis Multiple sclerosis documented as of this encounter (statuses as of 12/21/2023) Resolved Problems Problem Noted Date Diagnosed Date [...] as of this encounter (statuses as of 12/21/2023) Immunizations Name Administration Dates Next Due HEP [...] AM EST Office Visit Dermatology [facility] [place] [address] [place] [address] Kimberly Qureshi PA-C [address] [place] [address] 01/19/2024 8:57 AM EST Hospital Encounter OR [facility], Operating Room [facility] [address] [place] [address] Doron Torres MD [address] [place] [address] 01/19/2024 8:57 AM EST - 01/19/2024 10:24 AM EST Surgery OR [facility], Operating Room [facility] [address] [place] [address] Doron Torres MD [address] [place] [address] LAPAROSCOPIC REPAIR INGUINAL HERNIA RECURRENT 02/05/2024 9:45 AM EST Office Visit General Surgery, [facility] [address] [place] [address] Doron Torres MD [address] [place] [address] 02/15/2024 8:30 AM EST Office Visit Urology, [facility] [address] [place] [address] Joaquín Torres MD [address] [place] [address] 02/15/2024 9:45 AM EST Office Visit Otolaryngology [facility] [address] [place] [address] Aidan Han DO [address] [place] [address] 03/17/2024 8:20 AM EST Office Visit Family Practice [facility] [address] [place] [address] Hira Harvey DO [address] [place] [address] 06/06/2024 9:20 AM EDT Office Visit Neurology [facility] 200 [facility] [place] [address] Renetta Dow MD 200 [facility] [place] [address] Pending Results Name Type Priority Associated Diagnoses Date /Time CBC WITH WBC DIFFERENTIAL Lab Routine Pre-op testing 12/21/2023 9:10 AM EST COMPREHENSIVE METABOLIC PANEL Lab Routine Pre-op testing 12/21/2023 9:10 AM EST CBC Lab Routine Pre-op testing 12/21/2023 9:10 AM EST DIFFERENTIAL, AUTOMATED Lab Routine Pre-op testing 12/21/2023 9:10 AM EST Scheduled Procedures Name Priority Associated Diagnoses Date/Ti ia LAPAROSCOPIC REPAIR INGUINAL HERNIA RECURRENT Recurrent left [...] obstruction or gangrene, recurrent unilateral or unspecified Pre-op testing Preoperative examination, unspecified Recurrent left inguinal hernia Inguinal hernia without mention of obstruction or gangrene, recurrent unilateral or unspecified documented in this encounter Care Teams Sand Technician Relationship Specialty Start Date End Date Hira Harvey DO 132 [facility] [place] [address] PCP - General Family Medicine 06/22/20 documented as of this encounter
--- OUTSIDE RECORDS SUMMARY | 2024-04-03 23:03 | External Medical Summary | Summary of Care ---
Author Name Unknown Organization [facility] Address [address] [place] [address] Phone [phone] Care Team Providers Care Hop Weigher Name Role Phone Hira Harvey DO Primary Care Provider Encounter Details Date Type Department Care Team (Late st Contact Info) Description 12/18/2023 Orders Only PATIENT PORTAL DO NOT DELETE THIS DEPT USED BY [place] [id number] Allergies No known active allergiesdocumented as of this encounter (statuses as of 12/18/2023) Medications Medication Sig Dispensed Refills Start Date [...] as of this encounter (statuses as of 12/18/2023) Active Problems Problem Noted Date Diagnosed Date Recurrent left inguinal hernia 12/16/2023 Elevated prostate specific antigen (PSA) 023 History of nonmelanoma skin cancer 05/20/2022 Overview: Hx of BCC R temporal scalp s/p Mohs 05/07, L upper arm s/p C&C 04/2021, L scientologist s/p Mohs 2020, SCC dorsal R hand s/p Mohs 2020 Renal cyst 10/16/2017 Overview: 09/02 5cm R cyst, 10/03 4.8cm - advised 1 year FU with US Dyslipidemia 03/01/2001 Gastroesophageal reflux disease without esophagi tis Multiple sclerosis documented as of this encounter (statuses as of 12/18/2023) Resolved Problems Problem Noted Date Diagnosed Date [...] as of this encounter (statuses as of 12/18/2023) Immunizations Name Administration Dates Next Due HEP [...] State [facility] [place] [address] [place] [address] Kimberly Qureshi PA-C [address] [place] [address] [address] 01/19/2024 8:57 AM EST Hospital Encounter OR [facility], Operating Room [facility] [address] [place] [address] Doron Torres MD [address] [place] [address] 01/19/2024 8:57 AM EST - 01/19/2024 10:24 AM EST Surgery OR [facility], Operating Room [facility] [address] [place] [address] Doron Torres MD [address] [place] [address] LAPAROSCOPIC REPAIR INGUINAL HERNIA RECURRENT 02/05/2024 9:45 AM EST Office Visit General Surgery, [facility] [address] [place] [address] Doron Torres MD [address] [place] [address] 02/05/2024 2:30 PM EST Office Visit Otolaryngology [facility] [address] [place] [address] Aidan Han, DO [address] [place] [address] 02/15/2024 8:30 AM EST Office Visit Urology, [facility] [address] [place] [address] Joaquín Torres MD [address] [place] [address] 03/17/2024 8:20 AM EST Office Visit Family Practice [facility] [address] [place] [address] Hira Harvey, DO [address] [place] [address] 06/06/2024 9:20 AM EDT Office Visit Neurology [facility] [place] 200 [facility] [place] [address] Renetta Dow MD 200 [place] [address] Scheduled Procedures Name Priority Associated Diagnoses Date/Ti [...] Not on filedocumented as of this encounter Care Teams Hop Weigher Relationship Specialty Start Date End Date Hira Harvey DO [address] [place] [address] PCP - General Family Medicine 06/22/20 documented as of this encounter
--- OUTSIDE RECORDS SUMMARY | 2024-04-03 23:03 | External Medical Summary | Summary of Care ---
Author Name Unknown Organization [facility] Address [address] [place] [address] Phone [phone] Care Team Providers Care Perioperative Tech Name Role Phone Hira Harvey DO Primary Care Provider Reason for Visit * Reason Comments Return Neuro Multiple Sclerosis Encounter Details Date Type Department Care Team (Late st Contact Info) Description 12/10/2023 8:40 AM EDT Office Visit Neurology [facility] [address] [facility] [place] [address] Renetta Dow MD [address] [place] [address] MS (multiple sclerosis) ([facility])* Allergies No known active allergiesdocumented as of this encounter (statuses as of 12/10/2023) Medications Medication Sig Dispensed Refills Start Date [...] 12/04/2023 Rosuvastatin Calcium 5 MG Oral Tablet (Crestor)Indicati ons:Mixed dyslipidemia Take 1 Tablet by mouth in the morning. 90 Tablet 1 4 Active Mylanta Coat & Cool 1200-270-80 MG/10ML Oral Suspension (Adrian Carb-Mag Hydrox-Simeth) Take by mouth. Active FIBER COMPLETE TABS Take 1 Tablet by mouth in the morning. Gummies. 12/10/19 24 Discontinued Glatiramer Acetate 40 MG/ML Subcutaneous Solution Prefilled Syringe (Copaxone)Indicat ions:Multiple sclerosis (HCC) INJECT 40 MG THREE TIMES A WEEK DIRECTED 36 mL 1 3 12/10/19 24 Discontinued predniSONE 20 MG Oral Tablet (Deltasone)Indica tions:MS (multiple sclerosis) (HCC) TAKE FOUR TABLETS BY MOUTH EVERY DAY IN THE MORNING FOR 2 DAYS THEN 3 TABLETS EVERY MORNING FOR 4 DAYS THEN 2 TABLETS FOR 4 DAYS THEN 1 TABLET FOR 4 DAYS THEN 1/2 TABLET FOR 4 DAYS THEN STOP - - TAKE AFTER I.V. STEROIDS 35 Tablet 4 12/10/19 24 Discontinued documented as of this encounter (statuses as of 12/10/2023) Active Problems Problem Noted Date Diagnosed Date Elevated prostate specific antigen (PSA) 023 History of nonmelanoma skin cancer 05/20/2022 Overview: Hx of BCC R temporal scalp s/p Mohs 05/07, L upper arm s/p C&C 04/2021, L methodist s/p Mohs 2020, SCC dorsal R hand s/p Mohs 2020 Renal cyst 10/16/2017 Overview: 09/02 5cm R cyst, 10/03 4.8cm - advised 1 year FU with US Dyslipidemia 03/01/2001 Gastroesophageal reflux disease without esophagi tis Multiple sclerosis documented as of this encounter (statuses as of 12/10/2023) Resolved Problems Problem Noted Date Diagnosed Date [...] as of this encounter (statuses as of 12/10/2023) Immunizations Name Administration Dates Next Due HEP [...] Sign Reading Time Taken Comments Blood Pressure 132/68 12/10/2023 8:34 AM EDT Pulse 58 12/10/2023 8:34 AM EDT Temperature 35.8 C (96.4 F) 12/10/2023 8:34 AM ED T Respiratory Rate 16 12/10/2023 8:34 AM EDT Oxygen Saturation 98% 12/10/2023 8:34 AM EDT Inhaled Oxygen Concentration - - Weight 64.5 kg (142 lb 1.6 oz) 12/10/2023 8:34 A M EDT Height - - Body Mass Index 23.65 12/04/2023 12:02 PM EDT documented in this encounter Progress Notes * Renetta Dow MD - 12/10/2023 9:26 AM EDT CLINIC NOTES Neurology [address] [address] Doron Davey : 1955 NEUROLOGY OUTPATIENT NOTE 12/10/2023 HISTORY: The patient is referred for consultation by Dr. Harvey, who will be receiving a copy of this note. Patient comes today in follow-up relapsing remitting multiple sclerosis for which he has been off Copaxone for about a year he has had 1 flare in the last year which is reasonably good for him he spells always can cyst of optic neuritis or subjective visual symptoms and right hemiparesis he had a flare in September which improved well with steroids intravenously and orally He has been treated for diverticulitis and he may have an inguinal hernia with some involvement of the bowel he has a colonoscopy scheduled for next week Past Medical History: Diagnosis Date Asthma, allergic [...] skin cancer Elevated prostate specific antigen (PSA) Past Surgical History: Procedure Laterality Date BREAST LESION,OTHER,EXCISION neck COLONOSCOPY, DIAGNOSTIC (RECTUM) 12/17.2009 done normal exam repeat in 10 years COLONOSCOPY, DIAGNOSTIC (RECTUM) 11/09/2014 diverticulosis, repeat 10 yrs/[facility] COLONOSCOPY, DIAGNOSTIC (RECTUM) 05/26/2018 sigmoid diverticulosis/normal biopsies/COLONOSCOPY FLEXIBLE PROXIMAL DIAGNOSTIC performed by Sydnie Epps MD at ENDOSCOPY [facility] COLONOSCOPY, DIAGNOSTIC (RECTUM) 06/24/2022 few small and large mouthed diverticula/IC valve lipomatous/hemorrhoids/biopsies show adenomatous polyps/recall 3 years/COLONOSCOPY FLEXIBLE PROXIMAL DIAGNOSTIC performed by Dick Culp ENDOSCOPY [facility] DENTAL SURGERY PROCEDURE NEC Dental Surgery Procedure EGD, FLEXIBLE, DIAGNOSTIC 03/11/2013 ESOPHAGOGASTRODUODENOSCOPY (EGD), FLEXIBLE, TRANSORAL, DIAGNOSTIC performed by Perez Escudero MD at ENDOSCOPY [facility] EGD, FLEXIBLE, DIAGNOSTIC 04/06/2014 gastritis/ESOPHAGOGASTRODUODENOSCOPY (EGD), FLEXIBLE, TRANSORAL, DIAGNOSTIC performed by Best Dumont MD at ENDOSCOPY [facility] EGD, FLEXIBLE, DIAGNOSTIC 02/22/2018 normal bx/ESOPHAGOGASTRODUODENOSCOPY (EGD), FLEXIBLE, TRANSORAL, DIAGNOSTIC performed by Sydnie Epps MD at ENDOSCOPY [facility] EGD, FLEXIBLE, DIAGNOSTIC 09/02/2021 normal scope / biopsies normal / ESOPHAGOGASTRODUODENOSCOPY (EGD), FLEXIBLE, TRANSORAL, DIAGNOSTIC performed by Sydnie Epps MD at ENDOSCOPY [facility] EGD, W/ENDOSCOPIC US 04/06/2014 normal/ESOPHAGOGASTRODUODENOSCOPY (EGD), FLEXIBLE, TRANSORAL, ENDOSCOPIC ULTRASOUND performed by Best Dumont MD at ENDOSCOPY [facility] MISCELLANEOUS ORDER ([facility] ONLY) 04/25/2010 A-port central venous catheter with port Dr. 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 [employer] Tobacco Use Smoking status: Never Passive exposure: Never Smokeless tobacco: Never Vaping Use Vaping status: Never Used Substance and Sexual Activity Alcohol use: Yes Comment: rare Drug use: No Sexual activity: Yes Partners: Female control/protection: Surgical Other Topics Concern Service Yes Comment: [place], [place], [place], [place]==pos tb feliberto Blood Transfusions Not Asked Caffeine Concern Not Asked Occupational Exposure Not Asked Hobby Hazards Not Asked Sleep Concern Not Asked Stress Concern Not Asked Weight Concern Not Asked Special Diet Not Asked Back Care Not Asked Exercise Not Asked Bike Helmet Not Asked Seat Belt Not Asked Self-Exams Not Asked Social History Narrative Not on file Social Determinants of Health Financial Resource Strain: Not on file Food Insecurity: Not on file Transportation Needs: Not on file Social Connections: Unknown (12/10/2023) Social Connections How often do you feel lonely or isolated from those around you? (Adult - for ages 18 years and over): Not on file Housing Stability: Not on file Family History Problem Relation Name Age of Onset Hypertension Mother Heart Disorder Grandfather (Maternal) Heart Disorder Grandfather (Paternal) Diabetes Grandmother (Paternal) Arthritis Grandmother (Maternal) Current Outpatient Medications Medication Sig Dispense Refill [...] by mouth. Take prior to dental procedures Tums Smoothies 750 MG Oral Tablet Chewable [...] by mouth at bedtime.) 90 Capsule 3 Rosuvastatin Calcium 5 MG Oral Tablet (Crestor) Take 1 Tablet by mouth in the morning. 90 Tablet 1 Mylanta Coat & Cool 1200-270-80 MG/10ML Oral Suspension (Adrian Carb-Mag Hydrox- Simeth) Take by mouth. No current facility-administered medications for this visit. Review of patient's allergies indicates: No Known Allergies Results for orders placed or performed in visit on 06/02/23 CBC Result Value Ref Range WBC 8.93 4.00 - 10.80 K/uL RBC 4.33 4.50 - 5.25 M/uL HGB 13.1 (L) 14.0 - 16.8 g/dL HCT 40.3 40.0 - 48.4 % MCV 93.1 82.0 - 99.5 fL MCH 30.3 27.0 - 34.0 pg MCHC 32.5 32.0 - 36.0 g/dL RDW 13.2 11.5 - 15.5 % PLT 422 (H) 140 - 400 K/uL MPV 10.8 6.6 - 11.1 fL nRBCs 0 <=0 /100 WBCs Results for orders placed or performed in visit on 12/01/18 BASIC METAB PANEL, BMP Result Value Ref Range BUN 14 6 - 20 mg/dL CREATININE 1.1 0.6 - 1.2 mg/dL EGFR >60.0 >60 SODIUM 138 135 - 146 mmol/L POTASSIUM 4.9 3.5 - 5.1 mmol/L CHLORIDE 97 (L) 98 - 107 mmol/L CO2 28 22 - 32 mmol/L ANION GAP 13 7 - 15 mmol/L GLUCOSE 111 70 - 120 mg/dL CALCIUM 9.9 8.4 - 10.2 mg/dL Results for orders placed or performed in visit on 11/20/10 LIPID PANEL Result Value Ref Range HOURS FASTING 12 hours Triglycerides 115 <200 mg/dL Cholesterol 141 <200 mg/dL HDL Cholesterol 40 40 - 59 mg/dL Cholesterol-HDL Ratio 3.5 LDL Cholesterol 78 0 - 129 mg/dL Results for orders placed or performed in visit on 06/02/23 LIPID PANEL WITH DIRECT LDL IF TG IS HIGH Result Value Ref Range Triglycerides 150 <=174 mg/dL Cholesterol 145 <200 mg/dL HDL Cholesterol 39 (L) >39 mg/dL Non-HDL Cholesterol 106 <=159 mg/dL LDL Cholesterol 76 <=129 mg/dL Lab Results Component Value Date/Time HEMOGLOBIN A1C - [facility] 5.6 06/02/2023 12:21 PM HEMOGLOBIN A1C - [facility] 5.6 04/24/2022 10:58 AM HEMOGLOBIN A1C - [facility] 5.7 (H) 09/18/2021 09:35 AM HEMOGLOBIN A1C - [facility] 5.9 09/13/2003 02:35 PM Lab Results Component Value Date/Time TSH - [facility] 1.12 12/01/2022 11:01 AM No results found for: "SEUN" Results for orders placed or performed in visit on 09/18/21 VITAMIN B12 Result Value Ref Range Vitamin B12 791 232-1,245 pg/mL No results found for: "[id number]" No results found for: "AHQF13VHA7" No results found for: "[id number]" 25OH VITAMIN D TOTAL (ng/mL) Date Value 09/21/2018 61 01/28/2016 >60 01/20/2014 55.8 25-Hydroxy Vitamin D (ng/mL) Date Value 02/27/2023 65 08/25/2022 87 02/20/2022 104 Vitamin D Level Interpretation deficient: <20 ng/ml insufficient: 20-30 ng/ml normal: 31-100 ng/ml REVIEW OF SYSTEMS: As above PHYSICAL EXAM: BP 132/68 | Pulse 58 | Temp 35.8 C (96.4 F) (Tympanic) | Resp 16 | Wt 64.5 kg (142 lb 1.6 oz) | SpO2 98% | BMI 23.65 kg/m | BSA 1.72 m Patient is awake and alert speech and language are normal and affect is appropriate normal extraocular motility visual amaya and facial symmetry there is no afferent pupillary defect there is a right hemiparesis with a component of give-way there is decreased right rapid alternating movements but no drift tone is normal reflexes are symmetric toes are downgoing vibration is present in the fingers and toes [id number] and [id number] are normal gait is antalgic IMPRESSION: Stable relapsing remitting multiple sclerosis on no disease modifying therapy radiographically and clinically stable return in 6 months at which time we will consider repeat imaging Renetta Dow MD 12/10/2023 9:26 AM documented in this encounter Nursing Notes * Bhavani Mishra MED ASSIST - 12/10/2023 8:32 AM EDT Chief Complaint Patient presents with Return Neuro Multiple Sclerosis documented in this encounter Plan of Treatment Upcoming Encounters Date Type Department Care Team (Latest Contact Info) Description 12/14/2023 8:00 AM EDT Hospital Encounter ENDO [facility], Endoscopy Room [facility] [address] [place] [phone] Sydnie Epps MD [facility] [employer] [place] [id number] 12/14/2023 8:00 AM EDT - 12/14/2023 8:30 AM EDT Surgery ENDO [facility], Endoscopy Room [facility] [address] [place] [phone] Sydnie Epps MD [address] [place] [id number] COLONOSCOPY FLEXIBLE PROXIMAL DIAGNOSTIC 12/16/2023 1:00 PM EDT Office Visit General Surgery, [facility] [address] [facility] [place] [address] Doron Torres MD 132 [facility] [place] [address] 01/07/2024 9:00 AM EST Office Visit Dermatology [facility] 200 [facility] [place] [address] Kimberly Qureshi PA-C [address] [facility] [place] [address] 02/05/2024 2:30 PM EST Office Visit Otolaryngology [facility] [address] [facility] [place] [address] Aidan Han, DO 132 [facility] [place] [address] 02/15/2024 8:30 AM EST Office Visit Urology, [facility] [address] [facility] [place] [address] Joaquín Torres MD [address] [place] [address] 03/17/2024 8:20 AM EST Office Visit Family Practice [facility] [place] [address] Hira Harvey, DO 132 [facility] [place] [address] 06/06/2024 9:20 AM EDT Office Visit Neurology [facility] [place] [address] [facility] [place], [place] [address] Renetta Dow MD [address] [facility] [place] [address] Scheduled Procedures Name Priority Associated Diagnoses Date/Ti me COLONOSCOPY FLEXIBLE PROXIMAL DIAGNOSTIC Recall History of colonic polyps Diverticulitis of colon 12/14/2023 8:00 AM EDT Health Maintenance Due Date Last Done Comments [...] as of this encounter Visit Diagnoses Diagnosis MS (multiple sclerosis) (HCC)- Primary Multiple sclerosis History of colonic polyps Personal history of colonic polyps Diverticulitis of colon Diverticulitis of colon (without mention of hemorrhage) documented in this encounter Care Teams Perioperative Tech Relationship Specialty Start Date End Date Hira Harvey DO [address] [place] [address] PCP - General Family Medicine 06/22/20 documented as of this encounter
--- OUTSIDE RECORDS SUMMARY | 2024-04-03 23:03 | External Medical Summary | Summary of Care ---
Author Name Unknown Organization [facility] Address [address] [place] [address] Phone [phone] Care Team Providers Care Change Management Name Role Phone Hira Harvey DO Primary Care Provider Reason for Visit * Reason Onset Date Comments Procedure 12/10/2023 Encounter Details Date Type Department Care Team (Late st Contact Info) Description 12/10/2023 Telephone Gastroenterology, [facility] [address] [place] [address] Services, Scheduling [address] [place] [address] Procedure Allergies No known active allergiesdocumented as of this encounter (statuses as of 12/15/2023) Medications Medication Sig Dispensed Refills Start Date [...] as of this encounter (statuses as of 12/15/2023) Active Problems Problem Noted Date Diagnosed Date Elevated prostate specific antigen (PSA) 023 History of nonmelanoma skin cancer 05/20/2022 Overview: Hx of BCC R temporal scalp s/p Mohs 05/07, L upper arm s/p C&C 04/2021, L druze s/p Mohs 2020, SCC dorsal R hand s/p Mohs 2020 Renal cyst 10/16/2017 Overview: 09/02 5cm R cyst, 10/03 4.8cm - advised 1 year FU with US Dyslipidemia 03/01/2001 Gastroesophageal reflux disease without esophagi tis Multiple sclerosis documented as of this encounter (statuses as of 12/15/2023) Resolved Problems Problem Noted Date Diagnosed Date [...] as of this encounter (statuses as of 12/15/2023) Immunizations Name Administration Dates Next Due HEP [...] encounter Miscellaneous Notes * Telephone Encounter - Kasey Spangler OSA - 12/15/2023 10:53 AM EDT Noted. * Telephone Encounter - Gina Toro OSA - 12/10/2023 5:29 PM EDT Pt requesting to cancel procedure and declined to reschedule. Thank you documented in this encounter Plan of Treatment Upcoming Encounters Date Type Department Care Team (Late st Contact Info) Description 12/16/2023 1:00 PM EDT Office Visit General Surgery, [facility] [address] [place] [address] Doron Torres MD [address] [place] [address] 01/07/2024 9:00 AM EST Office Visit Dermatology [facility] 200 [facility] [place] [address] Kimberly Qureshi PA-C 200 [facility] [place] [address] 02/05/2024 2:30 PM EST Office Visit Otolaryngology [facility] [address] [place] [address] Aidan Han, DO [address] [place] [address] 02/15/2024 8:30 AM EST Office Visit Urology, [facility] [address] [place] [address] Joaquín Torres MD [address] [place] [address] 03/17/2024 8:20 AM EST Office Visit Family Practice [facility] [address] [place] [address] Hira Harvey, DO [address] [place] [address] 06/06/2024 9:20 AM EDT Office Visit Neurology [facility] 200 [facility] [place] [address] Renetta Dow MD 200 [facility] [place] [address] Health Maintenance Due Date Last Done Comments [...] filedocumented as of this encounter Care Teams Change Management Relationship Specialty Start Date End Date Hira Harvey DO [address] [place] [address] PCP - General Family Medicine 06/22/20 documented as of this encounter
--- OUTSIDE RECORDS SUMMARY | 2024-04-03 23:03 | External Medical Summary ---
Author Name Unknown Address Unknown Organization [id number]:[facility] [place] [address] [place] [address] [place] [address] Laboratory Report Ordering Provider Test Date Status JINA TRAMMELL 12/21/2023 09:10:46 Final Observation Date Value Abnormality Reference (Units ) Status BUN 12/21/2023 09:10:46 15 6-20 (mg/dL) Final Creatinine 12/21/2023 09:10:46 1.0 0.6-1.2 (mg/dL) Final Glomerular filtration rate/1.73 sq M.predicted [Volume Rate/Area] in Serum, Plasma or Blood by Creatinine-based formula (CKD-EPI) 12/21/2023 09:10:46 81 >=60 (mL/min) Final eGFR is calculated based on the CKD-EPI 2020 equation. Sodium 12/21/2023 09:10:46 139 135-146 (m mol/L) Final Potassium 12/21/2023 09:10:46 4.3 3.5-5.1 (m mol/L) Final Cl 12/21/2023 09:10:46 100 98-107 (mm ol/L) Final CO2 12/21/2023 09:10:46 29 22-32 (mmo l/L) Final Anion gap 12/21/2023 09:10:46 10 7-15 (mmol /L) Final Glucose 12/21/2023 09:10:46 84 70-120 (mg /dL) Final Albumin 12/21/2023 09:10:46 4.5 3.8-5.0 (g /dL) Final AST (Aspartate aminotransferase) 12/21/2023 09:10:46 18 10-50 (U/L) Final Alk Phos 12/21/2023 09:10:46 51 35-130 (U/ L) Final Bilirubin, Total 12/21/2023 09:10:46 0.4 <=1 .2 (mg/dL) Final Calcium 12/21/2023 09:10:46 9.4 8.4-10.2 ( mg/dL) Final Protein 12/21/2023 09:10:46 6.9 6.0-8.3 (g /dL) Final ALT (Alanine aminotransferase) 12/21/2023 09:10:46 19 10-50 (U/L) Final Performing Location [facility] [place] [facility] [address] [facility] [address]
--- OUTSIDE RECORDS SUMMARY | 2024-04-03 23:03 | External Medical Summary ---
Author Name Unknown Address Unknown Organization [id number]:[facility] [place] - [address] [facility] [place] [address] Laboratory Report Ordering Provider Test Date Status JINA TRAMMELL 12/21/2023 09:10:46 Final Observation Date Value Abnormality Reference (Units ) Status SYNC LEUKOCYTES IN BLOOD BY AUTOMATED COUNT 12/21/2023 09:10:46 6.51 4.00-10.80 (K/uL) Final Segs 12/21/2023 09:10:46 69.8 40.0-75.0 (%) Final Lymphs % 12/21/2023 09:10:46 19.2 18.0-42.0 (%) Final Monos 12/21/2023 09:10:46 7.4 1.0-11.0 (%) Final Eosinophils 12/21/2023 09:10:46 2.5 0.0-6.0 (%) Final Basos 12/21/2023 09:10:46 0.8 0.0-2.0 (%) Final Immature Granulocyte, Percent 12/21/2023 09:10:46 0.3 0.0-2.0 (%) Final Absolute Segs 12/21/2023 09:10:46 4.55 1.80-7.70 (K/uL) Final Lymphs, absolute 12/21/2023 09:10:46 1.25 1.00-4.80 (K/ul) Final Monos, Abs 12/21/2023 09:10:46 0.48 0.00-1.10 (K/uL) Final Eos, Abs 12/21/2023 09:10:46 0.16 0.00-0.70 (K/uL) Final Basos, Abs 12/21/2023 09:10:46 0.05 0.00-0.20 (K/uL) Final Immature Granulocytes, Number 12/21/2023 09:10:46 0.02 0.00-0.20 (K/uL) Final Performing Location [facility] [place] - [facility] [address] [facility] [address]
--- OUTSIDE RECORDS SUMMARY | 2024-04-03 23:03 | External Medical Summary ---
Author Name Unknown Address Unknown Organization K01:[facility] [place] - [facility] [address] [place] [address] Laboratory Report Ordering Provider Test Date Status JINA TRAMMELL 12/21/2023 09:10:46 Final Observation Date Value Abnormality Reference (Units ) Status WBC, Total 12/21/2023 09:10:46 6.51 4.00-10.80 (K/uL) Final RBC 12/21/2023 09:10:46 4.47 4.50-5.25 (M/uL) Final Hemoglobin 12/21/2023 09:10:46 13.6 Below low normal 14.0-16.8 (g/dL) Final HCT 12/21/2023 09:10:46 42.9 40.0-48.4 (%) Final MCV 12/21/2023 09:10:46 96.0 82.0-99.5 (fL) Final MCH 12/21/2023 09:10:46 30.4 27.0-34.0 (pg) Final MCHC 12/21/2023 09:10:46 31.7 32.0-36.0 (g/dL) Final RDW 12/21/2023 09:10:46 14.0 11.5-15.5 (%) Final Platelets 12/21/2023 09:10:46 404 Above high normal 140-400 (K/uL) Final MPV 12/21/2023 09:10:46 10.6 6.6-11.1 (fL) Final Nucleated erythrocytes/100 leukocytes [Ratio] in Blood by Automated count 12/21/2023 09:10:46 0 <=0 (/100 WBCs) Final Performing Location [facility] [place] - [facility] [address] [place] [address]
--- OUTSIDE RECORDS SUMMARY | 2024-04-03 23:03 | External Medical Summary | Summary of Care ---
Author Name Unknown Organization [facility] Address [address] [place] [address] Phone [phone] Care Team Providers Care Lurer Name Role Phone Hira Harvey DO Primary Care Provider Encounter Details Date Type Department Care Team (Late st Contact Info) Description 10/07/2023 Telephone Access Center, [place] [facility] [address] [facility] *DO NOT REMOVE THIS DEPARTMENT* [place], [place] [id number] Services, Scheduling [address] [place] [address] Allergies No known active allergiesdocumented as of this encounter (statuses as of 10/14/2023) Medications Medication Sig Dispensed Refills Start Date End Date Status TYLENOL 8 HOUR 650 MG PO TBCRIndications:Mul tiple sclerosis (HCC) 2 TABLETS NEEDED 10 Tab 0 06/17/2011 Active FIBER COMPLETE TABS Take 1 Tablet by mouth in the morning. Gummies. Active Multiple Vitamins-Minerals (MULTIVITAMIN GUMMIES ADULT) chewable tablet Take 1 Tablet by mouth in the morning. Active polyethylene glycol 3350 (MIRALAX) packet Take 1 Packet by mouth in the morning. Active diazepam (VALIUM) 5 MG Tablet 1/2 to 1 tab at bedtime for spasticity 90 Tab 1 04/28/2018 Active Vitamin B Complex Oral Tablet Take 1 [...] 2500 per day 1 Capsule 08/25/2022 Active Glatiramer Acetate 40 MG/ML Subcutaneous Solution Prefilled Syringe (Copaxone)Indicatio ns:Multiple sclerosis (HCC) INJECT 40 MG THREE TIMES A WEEK DIRECTED 36 mL 1 01/16/2023 Active Additional Information Patient not taking.Reported on 06/08/2023 Famotidine 20 MG Oral Tablet (Pepcid)Indications :Gastroesophageal reflux disease without esophagitis Take 1 Tablet by mouth in the morning and 1 Tablet before bedtime. 180 Tablet 3 05/15/2023 Active Additional Information Patient taking differently:20 mg OralDaily(AM), Reported on 06/08/2023 Amoxicillin 875 MG Oral Tablet Take 1 [...] the day. 90 Capsule 3 05/28/2023 Active Rosuvastatin Calcium 5 MG Oral Tablet (Crestor)Indication s:Mixed dyslipidemia Take 1 Tablet by mouth in the morning. 90 Tablet 1 07/21/2023 Active predniSONE 20 MG Oral Tablet (Deltasone)Indicati ons:MS (multiple sclerosis) ([facility]) TAKE FOUR TABLETS BY MOUTH EVERY DAY IN THE MORNING FOR 2 DAYS THEN 3 TABLETS EVERY MORNING FOR 4 DAYS THEN 2 TABLETS FOR 4 DAYS THEN 1 TABLET FOR 4 DAYS THEN 1/2 TABLET FOR 4 DAYS THEN STOP - - TAKE AFTER I.V. STEROIDS 35 Tablet 10/06/2023 Active documented as of this encounter (statuses as of 10/14/2023) Active Problems Problem Noted Date Diagnosed Date [...] as of this encounter (statuses as of 10/14/2023) Resolved Problems Problem Noted Date Diagnosed Date [...] as of this encounter (statuses as of 10/14/2023) Immunizations Name Administration Dates Next Due HEP A - Hepatitis A (Adult > 18 yrs) 12/22/1995, 06/25/1995 Hepatitis B, 20+ yrs 10/24/1997,02/13/1997,12/26 Influenza, Whole Virus 01/08/2005,1998,12/07/1997,12/23,12/22/1995 MMR - Measles/Mumps/Rubella Vaccine 11/16/1986 Meningococcal Polysaccharide Vaccine ([place]) 06/25/1995 OPV - Polio Virus Vaccine (Oral) 11/16/1978 Pneumococcal Polysaccharide PPV23 (Pneumovax) 05/22/2003 Pneumococcal Vaccine, Unspec ified Formulation 05/06/2002 Seasonal Influenza, PF, 6 M & above, IM , (FluLaval or Fluzone) 12/29/2018,12/10/2017,11/17/2016 Seasonal Influenza, Split, I IV3, With Preserve, Inj 10/18/2014,10/24/2013,10/25/2012,11/20,11/16/2009,11/01/2008,12/31/2007 ,12/02/2006 TD - Tetanus/Diptheria (ADULT) 01/19/2006,1995 TDAP (age [...] encounter Miscellaneous Notes * Telephone Encounter - Daisha Hutton LPN - 10/14/2023 8:03 AM EDT Patients IV should have been removed by now as infusion is completed. * Telephone Encounter - Daisha Hutton LPN - 10/07/2023 1:54 PM EDT Order pended. Please sign if appropriate. * Telephone Encounter - Vandana Krause OSA - 10/07/2023 1:35 PM EDT Neuroscience Phone Call Form- Requested Information from caller: Who is calling facility name: [facility] Provider patient is established with: Dr Dow What is the concern or issue they are having: requesting referral to keep Iv site in place between iv treatment How long has the issue been going on: n/a Any additional details to add: no Phone number for nurse to call back: [phone] Are forms needed? fax: [phone] Medication Refill? no Verify Pharmacy information is correct. Form to be used for established patients only (not new patients) Clinic has 24-48 hours to respond to caller. If caller is calling back before timeframe with any changes in condition/issues reported, update TEand re-route to appropriate pool If caller is calling back before timeframe- update TE- no need to re-route [facility] Neurology Pool- [facility] Neuro [place]- [id number] (All messages get sent to the [facility]) Neurology Pool Numbers- [place] patients - follow normal process Ops req [facility] Neurology ([place])- [id number] Ops req [place] Neurology ([place]- [facility] and [facility] clinics Only)- [id number] Neurosurgery Pool Numbers- [place] patients- follow normal process Ops req Neurosurgery [facility] ([place])- [id number] Ops req Neurosurgery [facility] ([place] Only) [id number] documented in this encounter Plan of Treatment Upcoming Encounters Date Type Department Care Team (Late st Contact Info) Description 12/10/2023 8:40 AM EDT Office Visit Neurology [facility] [address] [facility] [place] [address] Renetta Dow MD [address] [facility] [place] [address] 01/07/2024 9:00 AM EST Office Visit Dermatology [facility] [address] [facility] [place] [address] Kimberly Qureshi PA-C [address] [facility] [place] [address] 02/05/2024 2:30 PM EST Office Visit [facility]ol[facility]ology [facility] [address] [facility] [place] [address] Aidan Han, DO [address] [facility] [place] [address] 02/15/2024 8:30 AM EST Office Visit Urology, [facility] [address] [facility] [place] [address] Joaquín Torres MD [address] [place] [address] 03/17/2024 8:20 AM EST Office Visit Family Practice [facility] [address] [facility] [place] [address] Hira Harvey, DO [address] [facility] [place] [address] Scheduled Procedures Name Priority Associated Diagnoses Date/Ti me COLONOSCOPY FLEXIBLE PROXIMA L DIAGNOSTIC Recall History of colonic polyps Health Maintenance Due Date Last Done Comments COVID-19 Vaccine (#1) 1962 Zoster Vaccines (1 of 2) 1976 Cologuard 2002 Fecal Occult Blood Test 2002 Sigmoidoscopy 2002 Pneumococcal Vaccine: 65+ Years (2 of 2 - PCV) 05/21/2004 05/22/2003 Depression Screening 07/12/2021 07/12/2020 Adult Wellness Visit 07/03/2023 Influenza Vaccine (FLU shot) (#1) 2023 12/29/2018, [...] filedocumented as of this encounter Care Teams Lurer Relationship Specialty Start Date End Date Hira Harvey DO [address] [facility] [place] [address] PCP - General Family Medicine 06/22/20 documented as of this encounter
--- OUTSIDE RECORDS SUMMARY | 2024-04-03 23:03 | External Medical Summary | Summary of Care ---
Author Name Unknown Organization [facility] Address [address] [place] [address] Phone [phone] Care Team Providers Care Group Burner Machine Name Role Phone Hira Harvey DO Primary Care Provider Reason for Visit * Reason Comments Post-Op Left inguinal hernia , on and now fears that he has another hernia. US done on There is a left inguinal hernia identified. This appears to contain fat. However, the possibility of bowel cannot be entirely excluded. Encounter Details Date Type Department Care Team (Late st Contact Info) Description 12/16/2023 1:00 PM EDT Office Visit General Surgery, [facility] [address] [facility] [place] [address] Doron Torres MD 132 [facility] [place] [address] Pre-op testing*; Recurrent left inguinal hernia Allergies No known active allergiesdocumented as of this encounter (statuses as of 12/16/2023) Medications Medication Sig Dispensed Refills Start Date [...] 05/22/2021 Active Vitamin D (Ergocalciferol) 50 MCG (2000 [...] as needed. 03/02/2023 Active Cholecalciferol 50 MCG (2000 UT) Oral [...] as of this encounter (statuses as of 12/16/2023) Active Problems Problem Noted Date Diagnosed Date Recurrent left inguinal hernia 12/16/2023 Elevated prostate specific antigen (PSA) 023 History of nonmelanoma skin cancer 05/20/2022 Overview: Hx of BCC R temporal scalp s/p Mohs 05/07, L upper arm s/p C&C 04/2021, L gnosticist s/p Mohs 2020, SCC dorsal R hand s/p Mohs 2020 Renal cyst 10/16/2017 Overview: 09/02 5cm R cyst, 10/03 4.8cm - advised 1 year FU with US Dyslipidemia 03/01/2001 Gastroesophageal reflux disease without esophagi tis Multiple sclerosis documented as of this encounter (statuses as of 12/16/2023) Resolved Problems Problem Noted Date Diagnosed Date [...] as of this encounter (statuses as of 12/16/2023) Immunizations Name Administration Dates Next Due HEP [...] Pressure - - Pulse - - Temperature 36.5 C (97.7 F) 12/16/2023 12:55 PM E DT Respiratory Rate - - Oxygen Saturation - - Inhaled Oxygen Concentration - - Weight - - Height - - Body Mass Index - - documented in this encounter Progress Notes * Doron Torres MD - 12/16/2023 4:25 PM EDT Doron Davey is s/p a left inguinal [...] documented in this encounter Nursing Notes * Jessica Odell LPN - 12/16/2023 1:46 PM EDT Patient identified by name and date of . Chief Complaint Patient presents with Post-Op Left inguinal hernia, on and now fears that he has another hernia. US done on There is aleft inguinal hernia identified. This appears to contain fat. However, the possibility of bowel cannot be entirely excluded. Patient scheduled at [facility] for left inguinal hernia with dr torres . Date of Test:01/19/2024 Medications reviewed. EKG obtained last jan , pt aware only good til dec 13, pt surgery is dec 3 Labs: not obtained, pt is to get these labs done closer to home another day Permit signed. Patient verbalizes understanding of pre- and post op instructions. Written instructions given for review at later date. Jessica Odell LPN 12/16/2023 [facility] Inguinal Hernia Pre-op Education Patient was seen in clinic 12/16/2023 for [facility] Inguinal Hernia preoperative education. Patient was provided with the [facility] bag with supplies needed for preoperative preparation for surgery and educated per instructions on sheet. Patient was instructed to begin preparation on surgery on 01/19/2024. The following was provided to the patient: Patient Instruction Sheet HELP Card Chlorhexidine Soap Preventing Adverse Events During Surgery Pamphlet Help Prevent Skin Infections After Surgery Patient Education Included: Boost Breeze: Patient should drink at 10:00 pm the evening before surgery and 2 hours before arrival time to the hospital on the day of their surgery. Patient has been instructed not to eat or drink anything other than Boost Breeze after midnight thenight before surgery. Antibacterial soap or wipes: Provided and instructed to use evening prior and morning of surgery. The leave the soap on skin for 2 minutes and to not apply any lotions, creams, powders or deodorant after showering. Reviewed deep breathing and coughing exercises. Smoking cessation education not applicable. . Preop testing reviewed with patient by provider (see screening labs and procedures ordered prior tosurgery). Ambulation requirements prior to surgery: Encouraged to walk twice a day for at least 10 minutes. Postoperative activity restrictions: No lifting, pushing or pulling greater than 10 pounds for minimum of 6 weeks post-op. Discharge Needs Assessment: Not applicable. Patient has been or will be instructed by the preadmisison testing nurse on which medications should be held prior to surgery. [facility] written instructions were provided to patient along with contact information for nurse and clinic. Patient encouraged to contact nurse with any questions or concerns. Patient verbalized understanding. * Jessica Odell LPN - 12/16/2023 12:55 PM EDT Patient identified by name and date of . Chief Complaint Patient presents with Post-Op Left inguinal hernia, on and now fears that he has another hernia. US done on There is aleft inguinal hernia identified. This appears to contain fat. However, the possibility of bowel cannot be entirely excluded. documented in this encounter Plan of Treatment Upcoming Encounters Date Type Department Care Team (Late st Contact Info) Description 01/07/2024 9:00 AM EST Office Visit Dermatology [facility] [address] [facility] [place] [address] Kimberly Qureshi PA-C [address] [facility] [place] [address] 02/05/2024 9:45 AM EST Office Visit General Surgery, [facility] [address] [place] [address] Doron Torres MD [address] [place] [address] 02/05/2024 2:30 PM EST Office [facility] [place] [address] Aidan Han DO [address] [place] [address] 02/15/2024 8:30 AM EST Office Visit Urology, [facility] [address] [place] [address] Joaquín Torres MD [address] [place] [address] 03/17/2024 8:20 AM EST Office Visit Family Practice [facility] [address] [place] [address] Hira Harvey DO [address] [place] [address] 06/06/2024 9:20 AM EDT Office Visit Neurology [facility] [address] [facility] [place] [address] Renetta Dow MD [address] [facility] [place] [address] Scheduled Orders Name Type Priority Associated Diagnoses Orde r Schedule CBC WITH WBC DIFFERENTIAL Lab Routine Pre-op testing Expected: 12/16/2023, Expires: 12/15/2024 COMPREHENSIVE METABOLIC PANEL Lab Routine Pre-op testing Expected: 12/16/2023, Expires: 12/15/2024 Scheduled Procedures Name Priority Associated Diagnoses Date/Ti me LAPAROSCOPIC REPAIR INGUINAL HERNIA RECURRENT Recurrent left inguinal hernia Health Maintenance Due Date Last Done Comments [...] as of this encounter Visit Diagnoses Diagnosis Pre-op testing- Primary Preoperative examination, unspecified Recurrent left inguinal hernia Inguinal hernia without mention of obstruction or gangrene, recurrent unilateral or unspecified documented in this encounter Care Teams Group Burner Machine Relationship Specialty Start Date End Date Hira Harvey DO [address] [place] [address] PCP - General Family Medicine 06/22/20 documented as of this encounter
--- OUTSIDE RECORDS SUMMARY | 2024-04-03 23:03 | External Medical Summary | Summary of Care ---
Author Name Unknown Organization [facility] Address [address] [place] [address] Phone [phone] Care Team Providers Care Clinical Nutritionist Name Role Phone Hira Harvey DO Primary [...] 1:00 PM EDT Office Visit General Surgery, [facility] 132 [facility] [place] [address] Doron Torres MD 132 [facility] [place] [address] Pre-op testing*; Recurrent left inguinal hernia Allergies No known active allergiesdocumented as of this encounter (statuses as of 12/17/2023) Medications Medication Sig Dispensed Refills Start Date [...] as of this encounter (statuses as of 12/17/2023) Active Problems Problem Noted Date Diagnosed Date [...] as of this encounter (statuses as of 12/17/2023) Resolved Problems Problem Noted Date Diagnosed Date [...] as of this encounter (statuses as of 12/17/2023) Immunizations Name Administration Dates Next Due HEP [...] documented in this encounter Nursing Notes * eJssica Odell LPN - 12/16/2023 1:46 PM EDT Patient identified by name and date of . Chief Complaint Patient presents with Post-Op Left inguinal hernia, on and now fears that he has another hernia. US done on There is aleft inguinal hernia identified. This appears to contain fat. However, the possibility of bowel cannot be entirely excluded. Patient scheduled at [facility] for left inguinal hernia with dr [...] 01/07/2024 9:00 AM EST Office Visit Dermatology [facility] 200 [facility] [place] [address] Kimberly Qureshi PA-C 200 [facility] [place] [address] 01/19/2024 Hospital Encounter OR [facility], Operating Room [facility] [address] [place] [id number] Doron Torres MD [address] [place] [address] 02/05/2024 9:45 AM EST Office Visit General Surgery, [facility] [address] [place] [address] Doron Torres MD [address] [place] [address] 02/05/2024 2:30 PM EST Office Visit Otolaryngology [facility] [address] [place] [address] Aidan Han DO [address] [place] [address] 02/15/2024 8:30 AM EST Office Visit [facility]rology, [facility] [place] [address] Joaquín Torres MD [address] [place] [address] 03/17/2024 8:20 AM EST Office Visit Family Practice [facility] [address] [place] [address] Hira Harvey DO [address] [place] [address] 06/06/2024 9:20 AM EDT Office Visit Neurology [facility] [address] [facility] [place] [address] Renetta Dow MD [address] [facility] [place] [address] Scheduled Orders Name Type Priority Associated Diagnoses [...] 11/17/2016, Additional history exists Colonoscopy 06/24/2025 06/24/2022, 0510/2022, 05/26/2018, Additional history exists Colorectal Cancer Screening [...] obstruction or gangrene, recurrent unilateral or unspecified Recurrent left inguinal hernia- Primary Inguinal hernia without mention of obstruction or gangrene, recurrent unilateral or unspecified documented in this encounter Care Teams Clinical Nutritionist Relationship Specialty Start Date End Date Hira Harvey DO [address] [place] [address] PCP - General Family Medicine 06/22/20 documented as of this encounter
--- OUTSIDE RECORDS SUMMARY | 2024-04-03 23:03 | External Medical Summary | Summary of Care ---
Author Name Unknown Organization [facility] Address [address] [place] [address] Phone [phone] Care Team Providers Care Billboard Poster Helper Name Role Phone Hira Harvey DO Primary Care Provider Reason for Visit * Reason Comments Follow Up Diverticulitis of co remi, left inguinal hernia * Evaluate & Treat - Unlimited Visits (Within 3 days (urgent)) - Authorized Specialty Diagnoses / Procedures Referred By Jonathan taylor Referred To Contact General Surgery Diagnoses Diverticulitis of colon Left inguinal hernia Hira Harvey DO [address] [place] [address] Referral ID Status Reason Start Date Expiration Date Visits Requested Visits Authorized [id number] Authorized Specialty Services Required 4 [phone] Encounter Details Date Type Department Care Team (Late st Contact Info) Description 12/02/2023 11:45 AM EDT Office Visit General Surgery, [facility] [address] [place] [address] Doron Torres MD [address] [place] [address] Left lower quadrant pain* Allergies No known active allergiesdocumented as of this encounter (statuses as of 12/02/2023) Medications Medication Sig Dispensed Refills Start Date [...] MG Oral Tablet (Deltasone)Indicati ons:MS (multiple sclerosis) (HCC) TAKE FOUR TABLETS BY MOUTH EVERY DAY IN THE MORNING FOR 2 DAYS THEN 3 TABLETS EVERY MORNING FOR 4 DAYS THEN 2 TABLETS FOR 4 DAYS THEN 1 TABLET FOR 4 DAYS THEN 1/2 TABLET FOR 4 DAYS THEN STOP - - TAKE AFTER I.V. STEROIDS 35 Tablet 10/06/2023 Active Additional Information Patient not taking.Reported on 12/02/2023 Mylanta Coat [employer] Cool 1200-270-80 MG/10ML Oral Suspension (Adrian Carb-Mag Hydrox-Simeth) Take by mouth. Active documented as of this encounter (statuses as of 12/02/2023) Active Problems Problem Noted Date Diagnosed Date Elevated prostate specific antigen (PSA) 023 History of nonmelanoma skin cancer 05/20/2022 Overview: Hx of BCC R temporal scalp s/p Mohs 05/07, L upper arm s/p C&C 04/2021, L oriental orthodox s/p Mohs 2020, SCC dorsal R hand s/p Mohs 2020 Renal cyst 10/16/2017 Overview: 09/02 5cm R cyst, 10/03 4.8cm - advised 1 year FU with US Dyslipidemia 03/01/2001 Gastroesophageal reflux disease without esophagi tis Multiple sclerosis documented as of this encounter (statuses as of 12/02/2023) Resolved Problems Problem Noted Date Diagnosed Date [...] as of this encounter (statuses as of 12/02/2023) Immunizations Name Administration Dates Next Due HEP [...] Progress Notes * Doron Torres MD - 12/02/2023 2:17 PM EDT Doron Davey is s/p a [...] has pain when he has bowel movements. PE: There were no vitals taken for [...] normal, no rashes or significant lesions Assessment: We will obtain an ultrasound of the left inguinal region for further evaluation for possible small recurrence of his hernia. We will also have him see GI for possible colonoscopy. He willcall with any new or concerning symptoms in the meantime. We will follow up with him once the ultrasound is complete. Doron Torres MD 12/02/2023 documented in this encounter Nursing Notes * Elsy Parada LPN - 12/02/2023 11:31 AM EDT Chief Complaint Patient presents with Follow Up Diverticulitis of colon, left inguinal hernia Patient had a diverticulitis flare, he was on amoxicillin, he had one in May, July and recently. His family Dr sent him in here. He feels like it never went away since May. Every time he has a bowel movement he gets pain but it has gotten worse. documented in this encounter Plan of Treatment Upcoming Encounters Date Type Department Care Team (Latest Contact Info) Description 12/03/2023 8:15 AM EDT Imaging Radiology [facility] [address] [facility] [place] [address] 12/10/2023 8:40 AM EDT Office Visit Neurology [facility] [address] [place] [address] Renetta Dow MD [address] [facility] [place] [address] 12/14/2023 8:00 AM EDT Hospital Encounter ENDO OSSC, Endoscopy Room [facility] [address] [facility] [place] [phone] Sydnie Epps MD [address] [place] [address] 12/14/2023 8:00 AM EDT - 12/14/2023 8:30 AM EDT Surgery ENDO OSSC, Endoscopy Room [facility] [address] [place] [phone] Sydnie Epps MD [address] [place] [address] COLONOSCOPY FLEXIBLE PROXIMAL DIAGNOSTIC 12/16/2023 1:00 PM EDT Office Visit General Surgery, [facility] [address] [facility] [place] [address] Doron Torres MD [address] [place] [address] 01/07/2024 9:00 AM EST Office Visit D[facility]atology [facility] [address] [place] [address] Kimberly Qureshi PA-C [address] [place] [address] 02/05/2024 2:30 PM EST Office Visit [facility]ology [facility] [place] [address] Aidan Han, DO [address] [facility] [place] [address] 02/15/2024 8:30 AM EST Office Visit Urology, [facility] [address] [facility] [place] [address] Joaquín Torres MD [address] [place] [address] 03/17/2024 8:20 AM EST Office Visit Family Practice [facility] [address] [facility] [place] [address] Hira aHrvey, DO [address] [facility] [place] [address] Scheduled Orders Name Type Priority Associated Diagnoses Orde r Schedule US ABDOMEN LIMITED Medical Imaging Routine Left lower quadrant pain Ordered: 12/02/2023 Scheduled Procedures Name Priority Associated Diagnoses Date/Ti [...] as of this encounter Visit Diagnoses Diagnosis Left lower quadrant pain- Primary Abdominal pain, left lower quadrant History of colonic polyps Personal history of colonic polyps Diverticulitis of colon Diverticulitis of colon (without mention of hemorrhage) documented in this encounter Care Teams Billboard Poster Helper Relationship Specialty Start Date End Date Hira Harvey DO [address] [place] [address] PCP - General Family Medicine 06/22/20 documented as of this encounter
[2024-04-03 23:42] LABS: Basophils # (auto) 0.05 K/uL (0.00-0.20); Basophils % (auto) 0.3 %; Eosinophils # (auto) 0.05 K/uL (0.00-0.50); Eosinophils % (auto) 0.3 %; Immature Granulocytes # (auto) 0.07 K/uL (0.01-0.20); Immature Granulocytes % (auto) 0.4 %; Lymphocytes # (auto) 1.14 K/uL (1.20-3.40); Lymphocytes % (auto) 6.8 %; Mean Corpuscular Hemoglobin 29.9 pg (25.0-34.0); Mean Corpuscular Hgb Conc 33.3 g/dL (32.0-36.0); Mean Corpuscular Volume 89.7 fL (80.0-100.0); Monocytes % (auto) 7.2 %; Neutrophils # (auto) 14.25 K/uL (1.40-6.50); Platelet Count 415 K/uL (130-400); RDW Coefficient of Variation 13.2 % (11.5-14.5); RDW Standard Deviation 43.5 fL (36.4-46.3); Red Blood Count 4.35 M/uL (4.70-6.10); White Blood Count 16.76 K/ul (4.8-10.8)
[2024-04-03 23:44] LABS: Appearance Urine Clear (Clear); Bilirubin Urine Negative (Negative); Blood Urine Negative (Negative); Color Urine Yellow; Glucose Urine UA Negative (Negative); Ketones Urine Negative (Negative); Leukocyte Esterase Urine Negative (Negative); Nitrite Urine Negative (Negative); Protein Urine Negative (Negative); Specific Gravity Urine 1.013 (1.000-1.030); Urobilinogen Urine Negative (Negative); pH Urine 6.5 (4.5-7.5)
[2024-04-03 23:49] LABS: iSTAT Creatinine 1.1 mg/dl (0.6-1.3); iSTAT Hemoglobin 13.3 g/dl (14.0-18.0); iSTAT Ionized Calcium 1.15 mmol/l (1.12-1.32); iSTAT Potassium 3.9 mmol/L (3.3-5.0)
[2024-04-04 00:06] LABS: Albumin Level 4.7 gm/dl (3.4-5.0); BUN Creatinine Ratio 14.4 (10-20); Bilirubin Direct 0.1 mg/dl (0-0.2); Bilirubin,Total 0.6 mg/dl (0.2-1.0); Calcium 9.7 mg/dl (8.6-10.3); Creatinine Clr Calc Pharmacy 65.2 ml/min; Potassium 3.9 mmol/L (3.5-5.1); Total Protein 7.9 gm/dl (6.0-8.3)
--- NOTE | 2024-04-04 00:10 | XRay Report ---
Exam(s): XR CXR 1 VIEW EXAM: XR Chest, 1 View CLINICAL HISTORY: Sepsis. TECHNIQUE: Frontal view of the chest. COMPARISON: No relevant prior studies available. FINDINGS: Lungs: No infiltrate. Mild right midlung field platelike atelectasis. No CHF. Pleural space: No pleural effusion. No pneumothorax. Heart: Unremarkable. No cardiomegaly. Mediastinum: Unremarkable. Normal mediastinal contour. Bones/joints: Unremarkable. No acute fracture. IMPRESSION: No acute abnormality. Electronically signed by: Raciel Crum M.D. 04/04/24 00:09 AM
[2024-04-04 00:13] LABS: Troponin I High Sensitivity 4.9 pg/ml (0-20)
[2024-04-04] MEDS: OPTIRAY 320 100ml IV ONE (00:16)
--- NOTE | 2024-04-04 00:25 | Emergency Department Note ---
History of Present Illness General Chief complaint: Abdominal Pain Stated complaint: ABD PAIN, DIVITICULTIS, FEVER Time Seen by Provider: 04/03/24 22:53 History of Present Illness Maximum Pain Intensity: 6 This 68-year-old male recently treated for diverticulitis with Cipro and Flagyl in the outpatient setting presents ER for worsening left lower abdominal pain with fevers. Patient states he has had several rounds of diverticulitis recently. He has been to get a colonoscopy next week. Patient denies chest pain, dyspnea, cough, congestion, vomiting, diarrhea. Home Medications Medication Instructions Recorded Confirmed Type diazepam 5 mg tablet 5 mg PO DAILY PRN muscle spasms 01/14/18 10/09/23 History esomeprazole magnesium 20 mg 40 mg PO PM 01/14/18 10/09/23 History capsule,delayed release (Nexium) multivitamin 2 tab PO QAM 01/14/18 10/09/23 History acetaminophen 325 mg tablet 650 mg PO Q6H PRN Pain 10/29/18 10/09/23 History (Tylenol) fluticasone propionate 50 2 spray intranasal DAILY PRN 08/11/19 10/09/23 History mcg/actuation nasal Allergy Symptoms spray,suspension rosuvastatin 5 mg tablet (Crestor) 5 mg PO PM 08/11/19 10/09/23 History ascorbic acid (vitamin C) 500 mg 500 mg PO QAM 10/08/20 10/09/23 History tablet (Vitamin C) methylcellulose (laxative) 500 mg 500 mg PO DAILY 05/14/21 10/09/23 History tablet (Citrucel) calcium carbonate (Tums) 300 mg PO QID PRN Acid Reflux 03/02/23 10/09/23 History cholecalciferol (vitamin D3) 50 50 mcg PO QAM 03/02/23 10/09/23 History mcg (2,000 unit) capsule (Vitamin D3) famotidine 20 mg tablet 20 mg PO QAM 03/02/23 10/09/23 History vitamin B complex 1 tab PO QAM 03/02/23 10/09/23 History Allergies Allergy/AdvReac Type Severity Reaction Status Date / Time No Known Allergies Allergy Verified 10/09/23 08:25 Past Med/Surg History Problem List (Updated 04/04/24 @ 01:22 by Joycelyn Harkins PA-C) Failure of outpatient treatment (Acute) Diverticulitis (Acute) Left inguinal hernia Encounter for pre-operative examination Medical History Thyroid nodule Prediabetes History of diverticulitis last episode 04/2022 Bradycardia former runner used to run 10 miles a day scheduled for echo in April 2023 at [facility] History of COVID-2021 > denies hospitalization > symptoms resolved Kidney stones hx of kidney stones and no surgery. found a cyst on right kidney GERD (gastroesophageal reflux disease) Multiple sclerosis follow with dr ha - [facility] > no relapse since August 2022 Hyperlipidemia Surgical History H/O prostate biopsy 03/24/23 History of vascular access device since removed Hx of removal of neck cyst Hx of wisdom tooth extraction Hx of vasectomy History of arthroscopy left knee History of cholecystectomy lap History of esophagogastroduodenoscopy (EGD) History of colonoscopy Social History Smoking Status: Never smoker Second Hand Exposure: No; Do You Dip or Chew Tobacco: No; Hx Alcohol Use: Yes Alcohol type: beer Hx Substance Use: No Preferred Language: Israeli Communication Ability: Effective 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 Required: No Beliefs That Will Affect Care: None Current Living Situation: Spouse Feels Safe at Home: Yes Assistive Devices: None Review of Systems A total of 10 systems reviewed and were otherwise negative Physical Exam Vital Signs Vital Signs - 24 hr 04/03/24 22:47 04/03/24 23:00 04/03/24 23:50 Temperature 37.6 C H Temperature Source Temporal Artery Scan Pulse Rate 74 70 69 Pulse Rhythm Regular Respiratory Rate 16 17 Blood Pressure 198/95 H Blood Pressure Mean 129 Blood Pressure Position Sitting Pulse Oximetry 97 94 Oxygen Delivery Method Room Air Room Air Sepsis Recent Fever Within 48 Hours No Sepsis New/Unexplained Change in Mental Status No Sepsis Action Taken by Nursing No Action Required VITALS: Vitals are noted on the nurse's note and reviewed by myself. Vital signs stable. GENERAL: Pleasant gentleman with present, in no acute distress, nondiaphoretic, well-developed well-nourished. SKIN: Capillary reflex less than 2 seconds. HEENT: Normocephalic. PERRLA. EOMI. Nares patent. Mucous membranes moist. Neck is supple without nuchal rigidity. HEART: Regular rate and rhythm LUNGS: Clear to auscultation bilaterally without wheezes, rales or rhonchi. No retractions or accessory muscle use. ABDOMEN: Positive bowel sounds x 4. Normal tympanic percussion. Soft, tender to palpation left lower quadrant, no rash, without masses or organomegaly. Leos sign negative. No guarding or rebound tenderness. no CVA tenderness MUSCULOSKELETAL: No gross musculoskeletal defects. NEURO: Patient was alert and oriented to person place and time. No focal neurological deficits. Course Administered Medications Discontinued Medications Piperacillin Sod/Tazobactam Sod (Zosyn) 4.5 gm in 100 mls @ 200 mls/hr IV NOW ONE; Protocol Stop: 04/03/24 23:35 Last Admin: 04/04/24 00:28 Dose: 200 mls/hr Documented By: BAHMAN Sodium Chloride (Nss) 1,000 mls @ 999 mls/hr IV .Q1H1M ONE Stop: 04/04/24 00:06 Last Admin: 04/04/24 00:29 Dose: 999 mls/hr Documented By: BAHMAN Acetaminophen (Ofirmev) 1,000 mg in 100 mls @ 400 mls/hr IV NOW STA Stop: 04/03/24 23:20 Last Admin: 04/04/24 00:28 Dose: 400 mls/hr Documented By: BAHMAN Ioversol (Optiray 320 100ml) 100 ml IV ONCE ONE Stop: 04/04/24 00:14 Last Admin: 04/04/24 00:16 Dose: 93 ml Documented By: JHON Morphine Sulfate (Morphine Sulfate 4 Mg/Ml 1 Ml Carp\Vial) 4 mg IV NOW STA Stop: 04/03/24 23:07 Last Admin: 04/04/24 00:27 Dose: 4 mg Documented By: BAHMAN Ondansetron HCl (Ondansetron Inj 2 Mg/Ml 2 Ml Vial) 4 mg IV NOW STA Stop: 04/03/24 23:07 Last Admin: 04/04/24 00:27 Dose: 4 mg Documented By: BAHMAN Medical Decision Making Medical Records Attestation: I reviewed the patient's medical records. Home Medications Current Medication List: was personally reviewed by me Laboratory Data Attestation: I reviewed the patient's lab results. 04/03/24 23:26 04/03/24 23:26 Lab Results 04/03/24 04/03/24 Range/Units 23:26 23:34 WBC 16.76 H (4.8-10.8) K/ul RBC 4.35 L (4.70-6.10) M/uL Hgb 13.0 L (14.0-18.0) g/dl POC Hgb 13.3 L (14.0-18.0) g/dl Hct 39.0 L (42.0-52.0) % POC Hct 39 L (42-52) % MCV 89.7 (80.0-100.0) fL MCH 29.9 (25.0-34.0) pg MCHC 33.3 (32.0-36.0) g/dL RDW Std Deviation 43.5 (36.4-46.3) fL RDW Coeff of Mayda 13.2 (11.5-14.5) % Plt Count 415 H (130-400) K/uL MPV 10.0 (9.4-12.4) fL Immature Gran % (Auto) 0.4 % Neut % (Auto) 85.0 % Lymph % (Auto) 6.8 % [place] % (Auto) 7.2 % Eos % (Auto) 0.3 % Baso % (Auto) 0.3 % Neut # (Auto) 14.25 H (1.40-6.50) K/uL Lymph # (Auto) 1.14 L (1.20-3.40) K/uL [place] # (Auto) 1.20 H (0.11-0.59) K/uL Eos # (Auto) 0.05 (0.00-0.50) K/uL Baso # (Auto) 0.05 (0.00-0.20) K/uL Immature Gran # (Auto) 0.07 (0.01-0.20) K/uL POC Sodium 138 (135-144) mmol/L Sodium 137 (136-145) mmol/L POC Potassium 3.9 (3.3-5.0) mmol/L Potassium 3.9 (3.5-5.1) mmol/L POC Chloride 100 L (101-112) mmol/L Chloride 100 (98-107) mmol/L Carbon Dioxide 30 (21-32) mmol/L POC Total CO2 27 (24-31) mmol/L Anion Gap 7 (3-11) POC Anion Gap 16.0 (16-25) mmol/L POC BUN 13 (7-18) mg/dl BUN 14 (6-23) mg/dl Creatinine 0.97 (0.6-1.4) mg/dl POC Creatinine 1.1 (0.6-1.3) mg/dl Est Cr Clr Drug Dosing 65.2 ml/min eGFR 86.10 BUN/Creatinine Ratio 14.4 (10-20) Glucose 107 H (70-99(Fasting)) mg/dl POC Glucose (other) 107 H (70-99) mg/dl Lactate 0.6 (0.4-2.0) mmol/L Calcium 9.7 (8.6-10.3) mg/dl POC Ioniz Calcium Rakel 1.15 (1.12-1.32) mmol/l Magnesium 2.0 (1.7-2.4) mg/dl Total Bilirubin 0.6 (0.2-1.0) mg/dl Direct Bilirubin 0.1 (0-0.2) mg/dl AST 16 (13-39) U/L ALT 18 (7-52) U/L Alkaline Phosphatase 50 (34-104) U/L Troponin I High Sens 4.9 (0-20) pg/ml Total Protein 7.9 (6.0-8.3) gm/dl Albumin 4.7 (3.4-5.0) gm/dl Procalcitonin 0.17 (0-0.5) ng/ml Urine Color Yellow Urine Appearance Clear (Clear) Urine pH 6.5 (4.5-7.5) Ur Specific [place] 1.013 (1.000-1.030) Urine Protein Negative (Negative) Urine Glucose (UA) Negative (Negative) Urine Ketones Negative (Negative) Urine Blood Negative (Negative) Urine Nitrite Negative (Negative) Urine Bilirubin Negative (Negative) Urine Urobilinogen Negative (Negative) Ur Leukocyte Esterase Negative (Negative) Adenovirus (PCR) Not Detected (NotDetected) B. pertussis DNA (PCR) Not Detected (NotDetected) B.parapertussis DNA PCR Not Detected (NotDetected) C. pneumoniae DNA (PCR) Not Detected (NotDetected) Coronavirus OC43 (PCR) Not Detected (NotDetected) Coronavirus HKU1 (PCR) Not Detected (NotDetected) Coronavirus 229E (PCR) Not Detected (NotDetected) SARS-CoV-2 (PCR) Not Detected (NotDetected) Coronavirus NL63 (PCR) Not Detected (NotDetected) Human Metapneumovir PCR Not Detected (NotDetected) Influenza Type A (PCR) Not Detected (NotDetected) Influenza Type B (PCR) Not Detected (NotDetected) M. pneumoniae (PCR) Not Detected (NotDetected) Parainfluenza 1 (PCR) Not Detected (NotDetected) Parainfluenza 2 (PCR) Not Detected (NotDetected) Parainfluenza 3 (PCR) Not Detected (NotDetected) Parainfluenza 4 (PCR) Not Detected (NotDetected) RSV (PCR) Not Detected (NotDetected) Entero/Rhino (PCR) Not Detected (NotDetected) Imaging Data Attestation: I personally reviewed and interpreted this imaging study as follows: Radiologist's Impression: Abdomen/Pelvis CT 04/03/24 23:06 EXAM: CT abd pelvis IV con only CLINICAL HISTORY: LLQ pain, fever, recent divertic TECHNIQUE: Contrast-enhanced CT of the abdomen and pelvis was performed, with the following protocol: axial images with, and reconstructed coronal and sagittal images. Intravenous contrast - 93 ML OPTIRAY 320- was administered. One of the following dose reduction techniques was utilized for this exam: Automated exposure control, adjustment of the mA and/or kV according to patient size, and use of iterative reconstruction. 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 FINDINGS: Abdomen: Liver: Enlarged in size 18 cm, preserved shape, and low density. No focal lesions, cysts, or masses were identified. Hepatic vasculature and biliary ducts are unremarkable. Gallbladder and Biliary System: Was removed with surgical clips applied. The common bile duct is normal in caliber without dilation. Pancreas: Pancreatic head, body, and tail are visualized and appear normal in size and density. Tiny calcific focus noted at its tail. No pancreatic masses or other calcifications were noted. The pancreatic duct is not dilated. Spleen: Normal in size, shape, and density. No splenic lesions or masses were identified. Appendix: The appendix is normal in size without jasper appendiceal fat stranding, and without an appendicolith. No evidence of appendiceal abscess or perforation. Kidneys and Adrenal Glands: Both kidneys are normal in size, shape, and position. Cortical thickness is within normal limits. No renal calculi or hydronephrosis. Right renal parapelvic cyst measuring 6.1x5.3 cm with wall calcification seen of 1 mm thickness (Bosniak 2) Adrenal glands are unremarkable with no evidence of masses or hyperplasia. Pelvis: Urinary Bladder: Normal in contour and wall thickness. No intraluminal lesions identified. Prostate: Mild enlarged in size. No focal lesions or masses identified. Seminal Vesicles: Normal in size and appearance. No abnormalities noted. Rectum and Sigmoid Colon: Normal wall thickness and no evidence of mass. Peritoneal and Retroperitoneal Structures: No free fluid or abnormal fluid collections were identified within the abdomen or pelvis. No lymphadenopathy was noted. Bowel: The distal part of the descending colon shows signs of acute diverticulitis with multiple diverticula and is associated with edematous colon wall and related mesenteric fat strandings. Possible sub centimetric abscess formation is noted at its upper part. The visualized bowel loops are normal in caliber and appearance. No evidence of bowel obstruction or wall thickening. Bones and Soft Tissues: Right inguinal hernia contains fat. Pelvic bones and soft tissues are unremarkable. No fractures or abnormal masses were identified. IMPRESSION: 1. Descending colon diverticular disease with newly developed distal part acute diverticulitis and possible sub centimetric abscess formation at its upper part. 2. Stable Fatty hepatomegaly. 3. Stable Right large renal parapelvic cyst with wall calcification (Bosniak 2) 4. Stable Mildly enlarged prostate. 5. Stable Right inguinal hernia contains fat. Electronically signed by Caroline Borrero 04-04-2024 01:09 AM Chest X-Ray 04/03/24 23:06 Exam(s): XR CXR 1 VIEW EXAM: XR Chest, 1 View CLINICAL HISTORY: Sepsis. TECHNIQUE: Frontal view of the chest. COMPARISON: No relevant prior studies available. FINDINGS: Lungs: No infiltrate. Mild right midlung field platelike atelectasis. No CHF. Pleural space: No pleural effusion. No pneumothorax. Heart: Unremarkable. No cardiomegaly. Mediastinum: Unremarkable. Normal mediastinal contour. Bones/joints: Unremarkable. No acute fracture. IMPRESSION: No acute abnormality. Electronically signed by: Raciel Crum M.D. 04/04/24 00:09 AM MDM Narrative Prior records/ancillary studies reviewed. Triage Nursing notes reviewed. Additional history obtained from family. The patient's history was concerning for abdominal pain. Differential diagnosis: Etiologies such as appendicitis, diverticulitis, PUD, biliary pathology, UTI, pancreatitis, obstruction, mesenteric ischemia, aortic pathology, infections, inflammatory bowel disease, renal colic, as well as others were entertained. Physical examination findings: As above. ER treatment provided: An order was placed for continuous cardiac monitoring. The monitor shows a rate of 60-100 with a sinus rhythm per my Independent interpretation. Zosyn, IV fluids, Tylenol, morphine, Zofran On reassessment the patient felt better. Diagnostics interpreted by me: ECG: Ordered for abdominal pain EKG: Normal sinus, normal intervals, no acute ST-T changes. Rate of 72. Impression normal sinus rhythm independently interpreted by myself The labs Independently Interpreted by myself revealed leukocytosis, mild anemia, blood cultures pending Imaging studies: Imaging was reviewed and read by radiology Consultation: A consultation was placed with the hospitalist. The case was discussed and diagnostics were reviewed. The patient was evaluated in the ER for further treatment. Exam and history seem consistent with diverticulitis with possible subcentimeter developing abscess. Patient failed outpatient treatment. He was started on broad-spectrum antibiotics. He was reassessed multiple times. Medicine was consulted case is discussed. He will be admitted to the medical service. Blood cultures are pending. Elevated white count. Negative lactic and procalcitonin markers. By the evaluation outlined above emergent etiologies such as appendicitis, PUD, biliary pathology, UTI, pancreatitis, obstruction, mesenteric ischemia, aortic pathology, inflammatory bowel disease, renal colic, as well as others were deemed relatively unlikely. The pt informed about the findings as listed above. All questions were answered and pleased with the treatment. The chart was completed utilizing Mobile2[employer] voice recognition software. Grammatical errors, random word insertions, pronoun errors, and incomplete sentences are an occassional consequence of this system due to software limitations, ambient noise, and hardware issues. Any formal questions or concerns about the content, text, or information contained within the body of this dictation should be directly addressed to the physician respiratory care assistant for clarification. Impression & Plan Diverticulitis, Failure of outpatient treatment Discharge Plan Visit Data Chief Complaint: Abdominal Pain Stated Complaint: ABD PAIN, DIVITICULTIS, FEVER ED Provider: Shan Matos ED Midlevel Provider: Joycelyn Harkins Discharge Problem: Diverticulitis, Failure of outpatient treatment Patient Disposition: Admitted As Inpatient Condition: Good Forms Stand Alone Forms: My [facility] Prescriptions Prescriptions: No Action multivitamin Tablet 2 tab PO QAM diazepam 5 mg Tablet 5 mg PO DAILY PRN (Reason: muscle spasms) Patient Comments: hasn't taken in over 3 mos 03/02/23 esomeprazole magnesium [Nexium] 20 mg Capsule,Delayed Release(Dr/Ec) 40 mg PO PM acetaminophen [Tylenol] 325 mg Tablet 650 mg PO Q6H PRN (Reason: Pain) fluticasone propionate 50 mcg/actuation [place],Suspension 2 spray INTRANASAL DAILY PRN (Reason: Allergy Symptoms) rosuvastatin [Crestor] 5 mg Tablet 5 mg PO PM ascorbic acid (vitamin C) [Vitamin C] 500 mg Tablet 500 mg PO QAM Citrucel 500 mg Tablet 500 mg PO DAILY Tums 300 mg (750 mg) Tablet,Chewable 300 mg PO QID PRN (Reason: Acid Reflux) famotidine 20 mg Tablet 20 mg PO QAM vitamin B complex Tablet 1 tab PO QAM cholecalciferol (vitamin D3) [Vitamin D3] 50 mcg (2,000 unit) Capsule 50 mcg PO QAM Referrals Referrals: Hira Harvey DO [Primary Care Provider] -
[2024-04-04] MEDS: MoRPHine SULFATE 4 MG/ML 1 ML CARP\\VIAL IV STA ×2 (00:27→03:21)
[2024-04-04] MEDS: ONDANSETRON INJ 2 MG/ML 2 ML VIAL IV STA (00:27)
[2024-04-04] MEDS: ACETAMINOPHEN 1,000 MG/100 ML VIAL IV STA (00:28)
[2024-04-04] MEDS: PIPERACILLIN/TAZOBACTAM 4.5 GM/100 ML BAG IV ONE (00:28)
[2024-04-04] MEDS: SODIUM CHLORIDE 0.9% 1,000 ML IV ONE (00:29)
[2024-04-04 00:30] LABS: Adenovirus PCR Not Detected (NotDetected); Bordetella parapertussis PCR Not Detected (NotDetected); Bordetella pertussis PCR Not Detected (NotDetected); Chlamydia pneumoniae PCR Not Detected (NotDetected); Coronavirus 229E PCR Not Detected (NotDetected); Coronavirus CoV-2 (COVID19)PCR Not Detected (NotDetected); Coronavirus HKU1 PCR Not Detected (NotDetected); Coronavirus NL63 PCR Not Detected (NotDetected); Coronavirus OC43PCR Not Detected (NotDetected); Human Metapneumovirus PCR Not Detected (NotDetected); Influenza A PCR Not Detected (NotDetected); Influenza B PCR Not Detected (NotDetected); Mycoplasma pneumoniae PCR Not Detected (NotDetected); Parainfluenza Virus 1 PCR Not Detected (NotDetected); Parainfluenza Virus 2 PCR Not Detected (NotDetected); Parainfluenza Virus 3 PCR Not Detected (NotDetected); Parainfluenza Virus 4 PCR Not Detected (NotDetected); Respiratory Syncytial VirusPCR Not Detected (NotDetected); Rhinovirus/Enterovirus PCR Not Detected (NotDetected)
--- NOTE | 2024-04-04 00:34 | Emergency Department Note ---
ED Visit Note I was consulted by the Advanced Practice Provider, Melvi Harkins PA-C. I personally made/approved the management plan and take responsibility for the patient management. I performed a substantive portion of the visit. This includes the aspects of: -MDM: Patient has had worsening problems with abdominal pain despite treatment of diverticulitis as an outpatient. IV antibiotics administered. CT imaging performed. Further management in the hospital was deemed appropriate. -I independently interpreted the following studies: CT scan of the abdomen pelvis reveals diverticulitis .
--- NOTE | 2024-04-04 01:09 | CT Scan Report ---
EXAM: CT abd pelvis IV con only CLINICAL HISTORY: LLQ pain, fever, recent divertic TECHNIQUE: Contrast-enhanced CT of the abdomen and pelvis was performed, with the following protocol: axial images with, and reconstructed coronal and sagittal images. Intravenous contrast - 93 ML OPTIRAY 320- was administered. One of the following dose reduction techniques was utilized for this exam: Automated exposure control, adjustment of the mA and/or kV according to patient size, and use of iterative reconstruction. 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 FINDINGS: Abdomen: Liver: Enlarged in size 18 cm, preserved shape, and low density. No focal lesions, cysts, or masses were identified. Hepatic vasculature and biliary ducts are unremarkable. Gallbladder and Biliary System: Was removed with surgical clips applied. The common bile duct is normal in caliber without dilation. Pancreas: Pancreatic head, body, and tail are visualized and appear normal in size and density. Tiny calcific focus noted at its tail. No pancreatic masses or other calcifications were noted. The pancreatic duct is not dilated. Spleen: Normal in size, shape, and density. No splenic lesions or masses were identified. Appendix: The appendix is normal in size without jasper appendiceal fat stranding, and without an appendicolith. No evidence of appendiceal abscess or perforation. Kidneys and Adrenal Glands: Both kidneys are normal in size, shape, and position. Cortical thickness is within normal limits. No renal calculi or hydronephrosis. Right renal parapelvic cyst measuring 6.1x5.3 cm with wall calcification seen of 1 mm thickness (Bosniak 2) Adrenal glands are unremarkable with no evidence of masses or hyperplasia. Pelvis: Urinary Bladder: Normal in contour and wall thickness. No intraluminal lesions identified. Prostate: Mild enlarged in size. No focal lesions or masses identified. Seminal Vesicles: Normal in size and appearance. No abnormalities noted. Rectum and Sigmoid Colon: Normal wall thickness and no evidence of mass. Peritoneal and Retroperitoneal Structures: No free fluid or abnormal fluid collections were identified within the abdomen or pelvis. No lymphadenopathy was noted. Bowel: The distal part of the descending colon shows signs of acute diverticulitis with multiple diverticula and is associated with edematous colon wall and related mesenteric fat strandings. Possible sub centimetric abscess formation is noted at its upper part. The visualized bowel loops are normal in caliber and appearance. No evidence of bowel obstruction or wall thickening. Bones and Soft Tissues: Right inguinal hernia contains fat. Pelvic bones and soft tissues are unremarkable. No fractures or abnormal masses were identified. IMPRESSION: 1. Descending colon diverticular disease with newly developed distal part acute diverticulitis and possible sub centimetric abscess formation at its upper part. 2. Stable Fatty hepatomegaly. 3. Stable Right large renal parapelvic cyst with wall calcification (Bosniak 2) 4. Stable Mildly enlarged prostate. 5. Stable Right inguinal hernia contains fat. Electronically signed by Caroline Borrero 04-04-2024 01:09 AM
--- NOTE | 2024-04-04 05:46 | History & Physical Report ---
Date of Service April 04, 2024 Assessment & Plan (1) Diverticulitis: Plan: 68-year-old male with past medical history significant for dyslipidemia, GERD, multiple sclerosis, history of elevated prostatic specific antigen, recurrent left inguinal hernia, presents with recurrent diverticulitis. Patient had multiple episodes of diverticulitis. Last episode was 3 weeks ago when treated with Cipro and Flagyl. He completed the antibiotics about 8 days ago. The pain never went away and become progressively worse and severe since Thursday. Having nausea. No fevers. Constipated. Micturating okay. No chest pain or shortness of breath. No runny nose or sore throat. No cough. Currently hemodynamics are okay. Recurrent diverticulitis Leukocytosis Failed outpatient treatment with Cipro and Flagyl CAT scan showing possible subcentimeter abscess History of multiple episodes of diverticulitis IV Zosyn N.p.o. IV fluids Pain control Surgery consult GERD On Pepcid and esomeprazole and sucralfate Hyperlipidemia On statin History of multiple cirrhosis Currently not on any medications Ambulates with walker Elevated PSA Following with urology DVT prophylaxis Lovenox Disposition Medical floor Full code. History of Present Illness Chief Complaint: Recurrent diverticulitis Primary Care Provider: Hira Harvey DO 68-year-old male with past medical history significant for dyslipidemia, GERD, multiple sclerosis, history of elevated prostatic specific antigen, recurrent left inguinal hernia, presents with recurrent diverticulitis. Patient had multiple episodes of diverticulitis. Last episode was 3 weeks ago when treated with Cipro and Flagyl. He completed the antibiotics about 8 days ago. The pain never went away and become progressively worse and severe since Thursday. Having nausea. No fevers. Constipated. Micturating okay. No chest pain or shortness of breath. No runny nose or sore throat. No cough. Currently hemodynamics are okay. Past medical history. As mentioned above Past surgical history. Colonoscopy. Dental surgery. EGD. EGD with endoscopic ultrasound. Left laparoscopic inguinal hernia repair. Removal of epididymis lesion. Cholecystectomy. Vasectomy. Social history. . No smoking. Alcohol rarely. No drug use. Family history. Mother had hypertension. Paternal grandfather had heart disorder. Paternal grandmother had diabetes. Maternal grandfather heart disorder. Maternal grandmother had arthritis. Allergies Allergy/AdvReac Type Severity Reaction Status Date / Time No Known Allergies Allergy Verified 10/09/23 08:25 Home Medications Medication Instructions Recorded Confirmed Type esomeprazole magnesium 20 mg 20 mg PO DAILY 04/04/24 04/04/24 History capsule,delayed release famotidine 20 mg tablet 20 mg PO DAILY 04/04/24 04/04/24 History hydrocodone 7.5 mg-acetaminophen 1 tab PO BID PRN Severe Pain 04/04/24 04/04/24 History 325 mg tablet (Scale Score 7-10) hydroxyzine HCl 10 mg tablet 10 mg PO Q6H PRN Anxiety 04/04/24 04/04/24 History rosuvastatin 5 mg tablet 5 mg PO DAILY 04/04/24 04/04/24 History sucralfate 1 gram tablet 1 g PO DAILY 04/04/24 04/04/24 History Past Med/Surg History Problem List (Updated 04/04/24 @ 01:22 by Joycelyn Harkins PA-C) Failure of outpatient treatment (Acute) Diverticulitis (Acute) Left inguinal hernia Encounter for pre-operative examination Medical History Thyroid nodule Prediabetes History of diverticulitis last episode 04/2022 Bradycardia former runner used to run 10 miles a day scheduled for echo in April 2023 at [facility] History of COVID-19 2021 > denies hospitalization > symptoms resolved Kidney stones hx of kidney stones and no surgery. found a cyst on right kidney GERD (gastroesophageal reflux disease) Multiple sclerosis follow with dr ha - corbin > no relapse since August 2022 Hyperlipidemia Surgical History H/O prostate biopsy 03/24/23 History of vascular access device since removed Hx of removal of neck cyst Hx of wisdom tooth extraction Hx of vasectomy History of arthroscopy left knee History of cholecystectomy lap History of esophagogastroduodenoscopy (EGD) History of colonoscopy Social History Smoking Status: Never smoker Second Hand Exposure: No; Do You Dip or Chew Tobacco: No; Hx Alcohol Use: Yes Alcohol type: beer Hx Substance Use: No Preferred Language: Turkmen Communication Ability: Effective Dermatology Procedural Physician Required: No Beliefs That Will Affect Care: None Current Living Situation: Spouse Feels Safe at Home: Yes Assistive Devices: None Review of Systems Review of Systems: All systems reviewed & are unremarkable except as noted in HPI & below Physical Exam Physical Exam: General- Not in distress Head- atraumatic Eyes- PERRL. ENT- oropharynx clear Neck- supple, no JVD. Lungs- clear to auscultation no wheezing or crackles Heart- regular rhythm; no murmur, no gallop. Abdomen- normal bowel sounds, soft, tenderness in llq region with guarding, no distension Extremities- no pretibial edema, no erythema seen Neuro- alert, oriented PERRL, no facial palsy; no dysarthria; moves extremities Results & Data Results & Data Vital Signs (Past 12 Hours) Vital Signs Temp Pulse Pulse Resp BP BP Pulse Ox 04/04/24 05:26 53 L 18 131/77 95 04/04/24 04:00 51 L 13 114/69 94 04/04/24 03:48 48 L 04/04/24 03:28 56 L 20 124/66 94 04/04/24 03:00 51 L 20 124/66 96 04/04/24 03:00 36.6 C 04/04/24 02:48 50 L 17 95 04/04/24 01:45 59 L 15 128/76 97 04/04/24 01:33 63 17 96 04/04/24 01:30 60 21 145/73 H 97 04/04/24 01:15 59 L 20 140/63 96 04/04/24 01:06 62 21 96 04/04/24 00:30 66 20 164/79 H 95 04/04/24 00:00 68 19 153/79 H 96 04/03/24 23:50 69 04/03/24 23:00 70 17 94 04/03/24 22:47 37.6 C H 74 16 198/95 H 97 O2 Del Method 04/04/24 05:26 04/04/24 04:00 Room Air 04/04/24 03:48 04/04/24 03:28 04/04/24 03:00 Room Air 04/04/24 03:00 04/04/24 02:48 Room Air 04/04/24 01:45 Room Air 04/04/24 01:33 Room Air 04/04/24 01:30 Room Air 04/04/24 01:15 Room Air 04/04/24 01:06 Room Air 04/04/24 00:30 Room Air 04/04/24 00:00 Room Air 04/03/24 23:50 04/03/24 23:00 Room Air 04/03/24 22:47 Room Air Diagnostic Findings Laboratory Results WBC 16.76 K/ul (4.8-10.8) H 04/03/24 23:26 RBC 4.35 M/uL (4.70-6.10) L 04/03/24 23:26 Hgb 13.0 g/dl (14.0-18.0) L 04/03/24 23: POC Hgb 13.3 g/dl (14.0-18.0) L 04/03/24 23:34 Hct 39.0 % (42.0-52.0) L 04/03/24 23: POC Hct 39 % (42-52) L 04/03/24 23:34 MCV 89.7 fL (80.0-100.0) 04/03/24 23: MCH 29.9 pg (25.0-34.0) 04/03/24 23: MCHC 33.3 g/dL (32.0-36.0) 04/03/24 23: RDW Std Deviation 43.5 fL (36.4-46.3) 04/03/24 23: RDW Coeff of Mayda 13.2 % (11.5-14.5) 04/03/24: Plt Count 415 K/uL (130-400) H 04/03/24 23: MPV 10.0 fL (9.4-12.4) 04/03/24 23: Immature Gran % (Auto) 0.4 % 04/03/24 23: Neut % (Auto) 85.0 % 04/03/24 23: Lymph % (Auto) 6.8 % 04/03/24: Catron % (Auto) 7.2 % 04/03/24 23: Eos % (Auto) 0.3 % 04/03/24 23: Baso % (Auto) 0.3 % 04/03/24 23: Neut # (Auto) 14.25 K/uL (1.40-6.50) H 04/03/24 23:26 Lymph # (Auto) 1.14 K/uL (1.20-3.40) L 04/03/24 23:26 Catron # (Auto) 1.20 K/uL (0.11-0.59) H 04/03/24 23: Eos # (Auto) 0.05 K/uL (0.00-0.50) 04/03/24 23:26 Baso # (Auto) 0.05 K/uL (0.00-0.20) 04/03/24 23: Immature Gran # (Auto) 0.07 K/uL (0.01-0.20) 04/03/24 23: POC Sodium 138 mmol/L (135-144) 04/03/24 23:34 Sodium 137 mmol/L (136-145) 04/03/24 23: POC Potassium 3.9 mmol/L (3.3-5.0) 04/03/24 23:34 Potassium 3.9 mmol/L (3.5-5.1) 04/03/24 23: POC Chloride 100 mmol/L (101-112) L 04/03/24 23:34 Chloride 100 mmol/L (98-107) 04/03/24 23:26 Carbon Dioxide 30 mmol/L (21-32) 04/03/24 23: POC Total CO2 27 mmol/L (24-31) 04/03/24 23:34 Anion Gap 7 (3-11) 04/03/24 23:26 POC Anion Gap 16.0 mmol/L (16-25) 04/03/24 23:34 POC BUN 13 mg/dl (7-18) 04/03/24 23:34 BUN 14 mg/dl (6-23) 04/03/24 23: Creatinine 0.97 mg/dl (0.6-1.4) 04/03/24 23: POC Creatinine 1.1 mg/dl (0.6-1.3) 04/03/24 23:34 Est Cr Clr Drug Dosing 65.2 ml/min 04/03/24 23:26 eGFR 86.10 04/03/24 23: BUN/Creatinine Ratio 14.4 (10-20) 04/03/24 23: Glucose 107 mg/dl (70-99(Fasting)) H 04/03/24 23:26 POC Glucose (other) 107 mg/dl (70-99) H 04/03/24 23:34 Lactate 0.6 mmol/L (0.4-2.0) 04/03/24 23: Calcium 9.7 mg/dl (8.6-10.3) 04/03/24 23: POC Ioniz Calcium Rakel 1.15 mmol/l (1.12-1.32) 04/03/24 23:34 Magnesium 2.0 mg/dl (1.7-2.4) 04/03/24 23: Total Bilirubin 0.6 mg/dl (0.2-1.0) 04/03/24: Direct Bilirubin 0.1 mg/dl (0-0.2) 04/03/24 23: AST 16 U/L (13-39) 04/03/24 23: ALT 18 U/L (7-52) 04/03/24: Alkaline Phosphatase 50 U/L (34-104) 04/03/24 23: Troponin I High Sens 4.9 pg/ml (0-20) 04/03/24 23: Total Protein 7.9 gm/dl (6.0-8.3) 04/03/24 23: Albumin 4.7 gm/dl (3.4-5.0) 04/03/24 23: Procalcitonin 0.17 ng/ml (0-0.5) 04/03/24 23: Urine Color Yellow 04/03/24: Urine Appearance Clear (Clear) 04/03/24 23: Urine pH 6.5 (4.5-7.5) 04/03/24 23: Ur Specific Moody 1.013 (1.000-1.030) 04/03/24: Urine Protein Negative (Negative) 04/03/24: Urine Glucose (UA) Negative (Negative) 04/03/24 23: Urine Ketones Negative (Negative) 04/03/24: Urine Blood Negative (Negative) 04/03/24: Urine Nitrite Negative (Negative) 04/03/24: Urine Bilirubin Negative (Negative) 02/16/25 23:26 Urine Urobilinogen Negative (Negative) 04/03/24 23:26 Ur Leukocyte Esterase Negative (Negative) 04/03/24 23:26 Adenovirus (PCR) Not Detected (NotDetected) 04/03/24 23:26 B. pertussis DNA (PCR) Not Detected (NotDetected) 04/03/24 23:26 B.parapertussis DNA PCR Not Detected (NotDetected) 04/03/24 23:26 C. pneumoniae DNA (PCR) Not Detected (NotDetected) 04/03/24 23:26 Coronavirus OC43 (PCR) Not Detected (NotDetected) 04/03/24 23:26 Coronavirus HKU1 (PCR) Not Detected (NotDetected) 04/03/24 23:26 Coronavirus 229E (PCR) Not Detected (NotDetected) 04/03/24 23:26 SARS-CoV-2 (PCR) Not Detected (NotDetected) 04/03/24 23:26 Coronavirus NL63 (PCR) Not Detected (NotDetected) 04/03/24 23:26 Human Metapneumovir PCR Not Detected (NotDetected) 04/03/24 23:26 Influenza Type A (PCR) Not Detected (NotDetected) 04/03/24 23:26 Influenza Type B (PCR) Not Detected (NotDetected) 04/03/24 23:26 M. pneumoniae (PCR) Not Detected (NotDetected) 04/03/24 23:26 Parainfluenza 1 (PCR) Not Detected (NotDetected) 04/03/24 23:26 Parainfluenza 2 (PCR) Not Detected (NotDetected) 04/03/24 23:26 Parainfluenza 3 (PCR) Not Detected (NotDetected) 04/03/24 23:26 Parainfluenza 4 (PCR) Not Detected (NotDetected) 04/03/24 23:26 RSV (PCR) Not Detected (NotDetected) 04/03/24 23:26 Entero/Rhino (PCR) Not Detected (NotDetected) 04/03/24 23:26 Impressions Abdomen/Pelvis CT 04/03/24 23:06 EXAM: CT abd pelvis IV con only CLINICAL HISTORY: LLQ pain, fever, recent divertic TECHNIQUE: Contrast-enhanced CT of the abdomen and pelvis was performed, with the following protocol: axial images with, and reconstructed coronal and sagittal images. Intravenous contrast - 93 ML OPTIRAY 320- was administered. One of the following dose reduction techniques was utilized for this exam: Automated exposure control, adjustment of the mA and/or kV according to patient size, and use of iterative reconstruction. 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 FINDINGS: Abdomen: Liver: Enlarged in size 18 cm, preserved shape, and low density. No focal lesions, cysts, or masses were identified. Hepatic vasculature and biliary ducts are unremarkable. Gallbladder and Biliary System: Was removed with surgical clips applied. The common bile duct is normal in caliber without dilation. Pancreas: Pancreatic head, body, and tail are visualized and appear normal in size and density. Tiny calcific focus noted at its tail. No pancreatic masses or other calcifications were noted. The pancreatic duct is not dilated. Spleen: Normal in size, shape, and density. No splenic lesions or masses were identified. Appendix: The appendix is normal in size without jasper appendiceal fat stranding, and without an appendicolith. No evidence of appendiceal abscess or perforation. Kidneys and Adrenal Glands: Both kidneys are normal in size, shape, and position. Cortical thickness is within normal limits. No renal calculi or hydronephrosis. Right renal parapelvic cyst measuring 6.1x5.3 cm with wall calcification seen of 1 mm thickness (Bosniak 2) Adrenal glands are unremarkable with no evidence of masses or hyperplasia. Pelvis: Urinary Bladder: Normal in contour and wall thickness. No intraluminal lesions identified. Prostate: Mild enlarged in size. No focal lesions or masses identified. Seminal Vesicles: Normal in size and appearance. No abnormalities noted. Rectum and Sigmoid Colon: Normal wall thickness and no evidence of mass. Peritoneal and Retroperitoneal Structures: No free fluid or abnormal fluid collections were identified within the abdomen or pelvis. No lymphadenopathy was noted. Bowel: The distal part of the descending colon shows signs of acute diverticulitis with multiple diverticula and is associated with edematous colon wall and related mesenteric fat strandings. Possible sub centimetric abscess formation is noted at its upper part. The visualized bowel loops are normal in caliber and appearance. No evidence of bowel obstruction or wall thickening. Bones and Soft Tissues: Right inguinal hernia contains fat. Pelvic bones and soft tissues are unremarkable. No fractures or abnormal masses were identified. IMPRESSION: 1. Descending colon diverticular disease with newly developed distal part acute diverticulitis and possible sub centimetric abscess formation at its upper part. 2. Stable Fatty hepatomegaly. 3. Stable Right large renal parapelvic cyst with wall calcification (Bosniak 2) 4. Stable Mildly enlarged prostate. 5. Stable Right inguinal hernia contains fat. Electronically signed by Caroline Borrero 04-04-2024 01:09 AM Chest X-Ray 04/03/24 23:06 Exam(s): XR CXR 1 VIEW EXAM: XR Chest, 1 View CLINICAL HISTORY: Sepsis. TECHNIQUE: Frontal view of the chest. COMPARISON: No relevant prior studies available. FINDINGS: Lungs: No infiltrate. Mild right midlung field platelike atelectasis. No CHF. Pleural space: No pleural effusion. No pneumothorax. Heart: Unremarkable. No cardiomegaly. Mediastinum: Unremarkable. Normal mediastinal contour. Bones/joints: Unremarkable. No acute fracture. IMPRESSION: No acute abnormality. Electronically signed by: Raciel Crum M.D. 04/04/24 00:09 AM ECG Additional Comments: ECG. Normal sinus rhythm rate of 72. No significant change was found. Code Status & VTE Plan VTE Prophylaxis Plan VTE Prophylaxis will be ordered: Yes
[2024-04-04] MEDS: HYDROmorphone INJ 0.5 MG/0.5 ML SYR IV STA (06:25)
[2024-04-04] MEDS ORDERED: ONDANSETRON INJ 2 MG/ML 2 ML VIAL IV PRN (09:59)
[2024-04-04] MEDS: ENOXAPARIN INJ 40 MG/0.4 ML SYR SQ SCH (10:41)
[2024-04-04] MEDS: PIPERACILLIN/TAZOBACTAM 4.5 GM/100 ML BAG IV SCH (10:41)
[2024-04-04] MEDS: D5W AND 1/2NSS 1,000 ML IV SCH (10:41)
--- NOTE | 2024-04-04 11:05 | Surgery Consultation ---
Date of Consultation April 04, 2024 Assessment & Plan (1) Diverticulitis: HD 1 admitted for recurrent sigmoid diverticulitis/possible unresolved episode inadequately treated. Now may be complicated with CT with questionable developing abscess. Conservative management initiated and appropriate at this time with IV abx. Pt is on Zosyn. Fever on admission, now resolved, leukocytosis 16.7 Continue IV abx, follow clinical progress with trending leukocytosis, clinical state and abdominal exams Pt may have chips and sips Ambulate May have chemical DVT ppx if medically indicated F/U am labs for resolving leukocytosis Overall plan would be to aim for complete treatment and obtain colonoscopy 6-8 weeks. Should episodes continue on a very frequent basis, resistant to conservative measures or further complicated, will recommend surgical intervention. Surgery will follow up in the am History of Present Illness Reason for Consultation: Acute diverticulitis Attending Physician: Vicente Garcia MD History of Present Illness Mr. Davey is a 68M with a complicated diverticulitis history who presents with acute diverticulitis after being treated for a recent episode as an outpatient for which he completed a 10 day course of Cipro and Flagyl 9 days ago. Presented to the ED today for recurrent symptoms that felt worse than his previously treated episode. This has been a/w nausea, no constipation/diarrhea or other associated symptoms. He had fever at home he says to 101.5 and a documented fever here at 37.6. leukocytosis to 16.[address] A/P was completed revealing sigmoid diverticulitis without evidence for perforation or free fluid. There is a questionable abscess forming. He has been admitted to the medial service for conservative management and is on IV Zosyn, ice chips with IVF. A surgical consultation has been requested. Mr. Davey states he began having episodes of diverticulitis in 2015 and they have become progressively more frequent. His in the past year he has had it multiple times starting in April of 2023 at which time he was treated without abx for a period of time and only had dietary restriction. This did not relieve symptoms so he was then started on Augmentin which he states did not give any improvement. He was then started on Cipro and Flagyl in May for which he completed a 10 days course and believes he did see some improvement. He is unable to tell if symptoms resolved completely as he has also been dealing with a left inguinal hernia that was repaired open, recurred and then underwent a laparoscopic repair. He has not noted any bulging at the left groin. Of note recent CT states fat containing right groin hernia. He also has occasional blood in the toilet that he initially thought was secondary to a prostate biopsy which was done a year ago. He does have a weak urinary stream at baseline and sees urology. His last colonoscopy was roughly a year and a half ago. He is currently scheduled for a colonoscopy next Thursday which he will have to cancel at this time. He denies any FHX of colon cancer. Allergies Allergy/AdvReac Type Severity Reaction Status Date / Time ibuprofen Allergy Hives Verified 04/04/24 10:21 Home Medications Medication Instructions Recorded Confirmed Type esomeprazole magnesium 20 mg 20 mg PO DAILY 04/04/24 04/04/24 History capsule,delayed release famotidine 20 mg tablet 20 mg PO DAILY 04/04/24 04/04/24 History hydrocodone 7.5 mg-acetaminophen 1 tab PO BID PRN Severe Pain 04/04/24 04/04/24 History 325 mg tablet (Scale Score 7-10) hydroxyzine HCl 10 mg tablet 10 mg PO Q6H PRN Anxiety 04/04/24 04/04/24 History rosuvastatin 5 mg tablet 5 mg PO DAILY 04/04/24 04/04/24 History sucralfate 1 gram tablet 1 g PO DAILY 04/04/24 04/04/24 History Patient History Medical History Thyroid nodule Prediabetes History of diverticulitis last episode 04/2022 Bradycardia former runner used to run 10 miles a day scheduled for echo in April 2023 at [facility] History of COVID-2021 > denies hospitalization > symptoms resolved Kidney stones hx of kidney stones and no surgery. found a cyst on right kidney GERD (gastroesophageal reflux disease) Multiple sclerosis follow with dr ha - thomas > no relapse since August 2022 Hyperlipidemia Surgical History H/O prostate biopsy 03/24/23 History of vascular access device since removed Hx of removal of neck cyst Hx of wisdom tooth extraction Hx of vasectomy History of arthroscopy left knee History of cholecystectomy lap History of esophagogastroduodenoscopy (EGD) History of colonoscopy Social History Smoking Status: Never smoker Second Hand Exposure: No; Do You Dip or Chew Tobacco: No; Hx Alcohol Use: No Hx Substance Use: No Preferred Language: Bulgarian Communication Ability: Effective Medication Assistant Required: No Beliefs That Will Affect Care: None Current Living Situation: Spouse Other Information That Helps Us Care for You: No Feels Safe at Home: Yes Safety Concerns: Feels Safe At This Time Assistive Devices: Cane and Hearing Aid - Bilateral Review of Systems Review of Systems: All systems reviewed & are unremarkable except as noted in HPI & below Physical Exam Constitutional: average body habitus and healthy appearing; not ill appearing, not in distress and not diaphoretic Respiratory: normal respiratory effort; no respiratory distress, no labored breathing and does not use accessory muscles Cardiovascular: Rate/Rhythm: regular rate Gastrointestinal (Abdomen): Inspection/Auscultation: abdomen not distended Percussion/Palpation: + abdomen tender (LLQ, mild TTP. No rebound or gaurding) and abdomen soft; no guarding Results & Data Vital Signs (Past 12 Hours) Vital Signs Temp Pulse Pulse Resp BP BP Pulse Ox 04/04/24 10:03 36.4 C L 59 L 18 177/78 H 93 04/04/24 09:00 112/71 04/04/24 08:54 46 L 18 94 04/04/24 08:33 57 L 18 95 04/04/24 08:31 45 L 04/04/24 08:03 46 L 21 96 04/04/24 08:00 128/72 04/04/24 07:57 54 L 15 97 04/04/24 07:30 56 L 26 H 95 04/04/24 07:15 46 L 12 93 04/04/24 07:00 147/77 H 04/04/24 05:26 53 L 18 131/77 95 04/04/24 04:00 51 L 13 114/69 94 04/04/24 03:48 48 L 04/04/24 03:28 56 L 20 124/66 94 04/04/24 03:00 51 L 20 124/66 96 04/04/24 03:00 36.6 C 04/04/24 02:48 50 L 17 95 04/04/24 01:45 59 L 15 128/76 97 04/04/24 01:33 63 17 96 04/04/24 01:30 60 21 145/73 H 97 04/04/24 01:15 59 L 20 140/63 96 04/04/24 01:06 62 21 96 04/04/24 00:30 66 20 164/79 H 95 04/04/24 00:00 68 19 153/79 H 96 04/03/24 23:50 69 O2 Del Method 04/04/24 10:03 Room Air 04/04/24 09:00 04/04/24 08:54 Room Air 04/04/24 08:33 Room Air 04/04/24 08:31 04/04/24 08:03 Room Air 04/04/24 08:00 04/04/24 07:57 Room Air 04/04/24 07:30 Room Air 04/04/24 07:15 Room Air 04/04/24 07:00 04/04/24 05:26 04/04/24 04:00 Room Air 04/04/24 03:48 04/04/24 03:28 04/04/24 03:00 Room Air 04/04/24 03:00 04/04/24 02:48 Room Air 04/04/24 01:45 Room Air 04/04/24 01:33 Room Air 04/04/24 01:30 Room Air 04/04/24 01:15 Room Air 04/04/24 01:06 Room Air 04/04/24 00:30 Room Air 04/04/24 00:00 Room Air 04/03/24 23:[address] abd pelvis IV con only ADDENDUM: The report was faxed at [phone] at 12:36 AM [facility], 04/04/2024. Electronically signed by Caroline Borrero 04-04-2024 02:16 AM ADDENDUM END EXAM: CT abd pelvis IV con only CLINICAL HISTORY: LLQ pain, fever, recent divertic TECHNIQUE: Contrast-enhanced CT of the abdomen and pelvis was performed, with the following protocol: axial images with, and reconstructed coronal and sagittal images. Intravenous contrast - 93 ML OPTIRAY 320- was administered. One of the following dose reduction techniques was utilized for this exam: Automated exposure control, adjustment of the mA and/or kV according to patient size, and use of iterative reconstruction. 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 FINDINGS: Abdomen: Liver: Enlarged in size 18 cm, preserved shape, and low density. No focal lesions, cysts, or masses were identified. Hepatic vasculature and biliary ducts are unremarkable. Gallbladder and Biliary System: Was removed with surgical clips applied. The common bile duct is normal in caliber without dilation. Pancreas: Pancreatic head, body, and tail are visualized and appear normal in size and density. Tiny calcific focus noted at its tail. No pancreatic masses or other calcifications were noted. The pancreatic duct is not dilated. Spleen: Normal in size, shape, and density. No splenic lesions or masses were identified. Appendix: The appendix is normal in size without jasper appendiceal fat stranding, and without an appendicolith. No evidence of appendiceal abscess or perforation. Kidneys and Adrenal Glands: Both kidneys are normal in size, shape, and position. Cortical thickness is within normal limits. No renal calculi or hydronephrosis. Right renal parapelvic cyst measuring 6.1x5.3 cm with wall calcification seen of 1 mm thickness (Bosniak 2) Adrenal glands are unremarkable with no evidence of masses or hyperplasia. Pelvis: Urinary Bladder: Normal in contour and wall thickness. No intraluminal lesions identified. Prostate: Mild enlarged in size. No focal lesions or masses identified. Seminal Vesicles: Normal in size and appearance. No abnormalities noted. Rectum and Sigmoid Colon: Normal wall thickness and no evidence of mass. Peritoneal and Retroperitoneal Structures: No free fluid or abnormal fluid collections were identified within the abdomen or pelvis. No lymphadenopathy was noted. Bowel: The distal part of the descending colon shows signs of acute diverticulitis with multiple diverticula and is associated with edematous colon wall and related mesenteric fat strandings. Possible sub centimetric abscess formation is noted at its upper part. The visualized bowel loops are normal in caliber and appearance. No evidence of bowel obstruction or wall thickening. Bones and Soft Tissues: Right inguinal hernia contains fat. Pelvic bones and soft tissues are unremarkable. No fractures or abnormal masses were identified. IMPRESSION: 1. Descending colon diverticular disease with newly developed distal part acute diverticulitis and possible sub centimetric abscess formation at its upper part. 2. Stable Fatty hepatomegaly. 3. Stable Right large renal parapelvic cyst with wall calcification (Bosniak 2) 4. Stable Mildly enlarged prostate. 5. Stable Right inguinal hernia contains fat. Electronically signed by Caroline Borrero 04-04-2024 01:09 AM Results Complete Blood Count Results: RBC 4.35 M/uL (4.70-6.10) L 04/03/24 WBC 16.76 K/ul (4.8-10.8) H 04/03/24 Hgb 13.0 g/dl (14.0-18.0) L 04/03/24 Hct 39.0 % (42.0-52.0) L 04/03/24 Plt Count 415 K/uL (130-400) H 04/03/24 PG Care Time/CCT Total # of Minutes Spent Total Time Spent with Patient: Total time spent is greater than 50% in coordination of care (as documented) at patient's floor/unit and/or counseling patient: [place] [address] IN/OBS CONSULT LVL 3,45M Patient Type New History Detailed Exam Expanded Problem Focused Diagnoses Diverticulitis K57.92
--- NOTE | 2024-04-04 13:03 | Electrocardiogram Report ---
Test Reason : Blood Pressure : */* mmHG Vent. Rate : 72 BPM Atrial Rate : 72 BPM P-R Int : 164 ms QRS Dur : 102 ms QT Int : 388 ms P-R-T Axes : 12 -17 41 degrees QTcB Int : 424 ms Normal sinus rhythm Moderate voltage criteria for LVH, may be normal variant Poor R wave progression, consider anterior VA vs. lead placement vs. LVH Borderline ECG When compared with ECG of 05-Mar-2023 09:20, No significant change was found Confirmed by Jerome Pryor ([id number]) on 04/04/2024 1:02:47 PM Referred By: REFERRED SELF Confirmed By: Jerome Pryor
[2024-04-04] MEDS: HYDROmorphone INJ 0.5 MG/0.5 ML SYR IV PRN (13:59)
[2024-04-04] MEDS ORDERED: Nursing to Pharmacy Communication SCH (18:15)
[2024-04-04] MEDS: FAMOTIDINE 20 MG TAB PO SCH (20:16)
[2024-04-04] MEDS: ACETAMINOPHEN 1,000 MG/100 ML VIAL IV PRN (20:18)
--- NOTE | 2024-04-05 07:13 | Hospitalist Progress Note ---
Date of Service April 05, 2024 Assessment & Plan (1) Diverticulitis: Plan: 68-year-old male with past medical history significant for dyslipidemia, GERD, multiple sclerosis, history of elevated prostatic specific antigen, recurrent left inguinal hernia, presents with recurrent diverticulitis. Patient had multiple episodes of diverticulitis. Last episode was 3 weeks ago when treated with Cipro and Flagyl. He completed the antibiotics about 8 days ago. The pain never went away and become progressively worse and severe since Thursday. Having nausea. No fevers. Constipated. Micturating okay. No chest pain or shortness of breath. No runny nose or sore throat. No cough. Currently hemodynamics are okay. Recurrent diverticulitis Leukocytosis Failed outpatient treatment with Cipro and Flagyl CAT scan showing possible subcentimeter abscess History of multiple episodes of diverticulitis IV Zosyn N.p.o. IV fluids Pain control Surgery consulted WBC now improved and pain also improved, likely will be able to start clear liquid diet soon, surgery following closely GERD On Pepcid and esomeprazole and sucralfate Hyperlipidemia On statin History of multiple sclerosis Currently not on any medications Ambulates with walker Elevated PSA Following with urology DVT prophylaxis Lovenox Disposition Medical floor Full code. Admission and Anticipated Discharge Date Admission Date: April 04, 2024 Subjective Pt seen in follow up of diverticulitis currently lying in bed in NAD, feels improved, abdominal pain improved. He is passing flatus No fever, chills, chest pain, shortness of breath, no n/v Plans to ambulate more in hallways today Review of Systems Review of Systems: All systems reviewed & are unremarkable except as noted in Subjective Physical Exam Physical Exam: General- WD/WN elderly M in NAD Head- atraumatic Eyes- PERRL. Neck- supple, no JVD. Lungs- clear to auscultation no wheezing or crackles Heart- regular rhythm; no murmur Abdomen- normal bowel sounds, soft, tenderness in llq region - improved Extremities- no pretibial edema, no erythema seen Neuro- alert, oriented PERRL, no facial palsy; no dysarthria; moves extremities Results & Data Results & Data Vital Signs (Past 12 Hours) Vital Signs Temp Pulse Resp BP Pulse Ox O2 Del Method 04/04/24 19:35 36.8 C 89 16 170/77 H 97 Room Air Laboratory Results 04/05/24 Range/Units 08:09 WBC 6.25 (4.8-10.8) K/ul RBC 4.02 L (4.70-6.10) M/uL Hgb 12.0 L (14.0-18.0) g/dl Hct 37.3 L (42.0-52.0) % MCV 92.8 (80.0-100.0) fL MCH 29.9 (25.0-34.0) pg MCHC 32.2 (32.0-36.0) g/dL RDW Std Deviation 45.9 (36.4-46.3) fL RDW Coeff of Mayda 13.3 (11.5-14.5) % Plt Count 372 (130-400) K/uL MPV 10.2 (9.4-12.4) fL Sodium 140 (136-145) mmol/L Potassium 3.8 (3.5-5.1) mmol/L Chloride 104 (98-107) mmol/L Carbon Dioxide 32 (21-32) mmol/L Anion Gap 4 (3-11) BUN 8 (6-23) mg/dl Creatinine 1.08 (0.6-1.4) mg/dl Est Cr Clr Drug Dosing 58.5 ml/min eGFR 75.68 BUN/Creatinine Ratio 7.4 L (10-20) Glucose 107 H (70-99(Fasting)) mg/dl Calcium 9.3 (8.6-10.3) mg/dl Phosphorus 3.3 (2.5-4.9) mg/dl Magnesium 2.2 (1.7-2.4) mg/dl Medications Administered Current Inpatient Medications Enoxaparin Sodium (Enoxaparin Inj 40 Mg/0.4 Ml Syr) 40 mg SQ Q24H KARLI Stop: 05/04/24 10:14 Last Admin: 04/05/24 09:43 Dose: 40 mg Famotidine (Famotidine 20 Mg Tab) 20 mg PO HS KARLI Stop: 05/04/24 20:59 Last Admin: 04/04/24 20:16 Dose: 20 mg Hydromorphone HCl (Hydromorphone Inj 0.5 Mg/0.5 Ml Syr) 0.5 mg IV Q4H PRN PRN Reason: Mod-Sev Pain (Scale 4-10) Stop: 04/18/24 09:58 Last Admin: 04/04/24 13:59 Dose: 0.5 mg Acetaminophen (Ofirmev) 1,000 mg in 100 mls @ 400 mls/hr IV Q8H PRN PRN Reason: Pain or Fever Stop: 04/07/24 09:58 Last Infusion: 04/04/24 20:45 Dose: Infused Piperacillin Sod/Tazobactam Sod (Zosyn) 4.5 gm in 100 mls @ 25 mls/hr IV Q8H [facility]; Protocol Stop: 04/14/24 09:59 Last Admin: 04/05/24 09:46 Dose: 25 mls/hr Dextrose/Sodium Chloride (D5w And 1/2nss) 1,000 mls @ 80 mls/hr IV .[id number] [facility] Stop: 04/06/24 09:59 Last Admin: 04/05/24 10:14 Dose: 80 mls/hr Ondansetron HCl (Ondansetron Inj 2 Mg/Ml 2 Ml Vial) 4 mg IV Q6H PRN PRN Reason: Nausea Stop: 05/04/24 09:58 Pantoprazole Sodium (Pantoprazole 40 Mg Tab) 40 mg PO DAILY [facility]; Protocol Stop: 05/05/24 08:59 Last Admin: 04/05/24 08:59 Dose: Not Given Rosuvastatin Calcium (Rosuvastatin Calcium 5 Mg Tab) 5 mg PO DAILY [facility] Stop: 05/05/24 08:59 Last Admin: 04/05/24 09:39 Dose: 5 mg
[2024-04-05 08:47] LABS: BUN Creatinine Ratio 7.4 (10-20); Calcium 9.3 mg/dl (8.6-10.3); Creatinine Clr Calc Pharmacy 58.5 ml/min; Hematocrit (blood only) 37.3 % (42.0-52.0); Magnesium 2.2 mg/dl (1.7-2.4); Mean Corpuscular Hemoglobin 29.9 pg (25.0-34.0); Mean Corpuscular Hgb Conc 32.2 g/dL (32.0-36.0); Mean Corpuscular Volume 92.8 fL (80.0-100.0); Mean Platelet Volume 10.2 fL (9.4-12.4); Phosphorus 3.3 mg/dl (2.5-4.9); Platelet Count 372 K/uL (130-400); Potassium 3.8 mmol/L (3.5-5.1); RDW Coefficient of Variation 13.3 % (11.5-14.5); RDW Standard Deviation 45.9 fL (36.4-46.3); Red Blood Count 4.02 M/uL (4.70-6.10); White Blood Count 6.25 K/ul (4.8-10.8)
[2024-04-05] MEDS: PANTOprazole 40 MG TAB PO SCH (08:59)
[2024-04-05] MEDS ORDERED: FAMOTIDINE 20 MG TAB PO SCH (09:00)
[2024-04-05] MEDS: ROSUVASTATIN CALCIUM 5 MG TAB PO SCH (09:39)
[2024-04-05] MEDS: D5W AND 1/2NSS 1,000 ML IV SCH (10:14)
[2024-04-05] MEDS: hydrALAZINE HCL 20 MG/ML VIAL IV ONE (12:12)
--- NOTE | 2024-04-05 14:52 | Surgery Progress Note ---
Date of Service April 05, 2024 Assessment & Plan (1) Diverticulitis: Plan: HD 2 with questionable recurrent vs incomplete treatment of a previous episode of diverticulitis. The patient has remained afebrile and feels improved this am. His leukocytosis has resolved. Still with TTP Continue with IV abx at this time He may continue with sips and chips today If he feels well still by tomorrow, he may have clear liquids Continue to ambulate May have chemical DVT ppx Admission and Anticipated Discharge Date Admission Date: April 04, 2024 Subjective Pt states he feels improved this am. He denies N/V and has not yet had a BM. Admits to passing flatus. Physical Exam Constitutional: cooperative; no acute distress, not ill appearing and not diaphoretic Respiratory: normal respiratory effort; no respiratory distress, no labored breathing and does not use accessory muscles Gastrointestinal (Abdomen): Inspection/Auscultation: abdomen normal to inspection; abdomen not distended Percussion/Palpation: + guarding (voluntary) and abdomen soft; abdomen nontender and abdomen not rigid Results & Data Vital Signs (Past 12 Hours) Vital Signs Temp Pulse Resp BP Pulse Ox O2 Del Method 04/05/24 12:27 177/70 H 04/05/24 11:00 36.4 C L 49 L 18 190/72 H 92 Room Air 04/05/24 08:00 36.8 C 50 L 18 170/96 H 99 Room Air Laboratory Results WBC WNL PG Care Time/CCT Total # of Minutes Spent Total Time Spent with Patient: Total time spent is greater than 50% in coordination of care (as documented) at patient's floor/unit and/or counseling patient: Coding Level of Care Code 87906 SUB INP/OBS CARE 03/12MIN Diagnoses Diverticulitis K57.92
[2024-04-06] MEDS: ALUMINUM/MAGNESIUM/SIMETH (MAALOX MAX) 30 ML UDC PO STA (05:52)
--- NOTE | 2024-04-06 09:00 | Surgery Progress Note ---
Date of Service April 06, 2024 Assessment & Plan (1) Diverticulitis: Plan: Patient here with questionable recurrent vs incomplete treatment of a previous episode of diverticulitis Patient's vitals are stable. WBC yesterday 6, is pending today Abdomen is soft, non distended, with improving discomfort to palpation in the LLQ Will trial patient on clears and see how he fairs He is on an anti-acid regimen at this time Continue with IV abx while in house Continue to ambulate May have chemical DVT ppx Admission and Anticipated Discharge Date Admission Date: April 04, 2024 Supervising Physician Co-Signing Physician Notes I have and examined this patient this am and I agree with this plan Subjective Patient reports feeling improved overall. he still has some pain, but much improved from admission. reports some gerd-like symptoms he received maalox for this am. he thinks it's because his stomach is empty. No nausea/vomiting. he is passing gas and stool. he's got some pain with straining for BMs. Physical Exam Physical Exam: awake/alert, no distress Respiratory: normal respiratory effort Gastrointestinal (Abdomen): Inspection/Auscultation: abdomen not distended Percussion/Palpation: + abdomen tender (some discomfort to palpation in llq) and abdomen soft Results & Data Vital Signs (Past 12 Hours) Vital Signs Temp Pulse Resp BP Pulse Ox O2 Del Method 04/06/24 07:10 97.7 F 56 L 16 167/87 H 96 Room Air PG Care Time/CCT Total # of Minutes Spent Total Time Spent with Patient: Total time spent is greater than 50% in coordination of care (as documented) at patient's floor/unit and/or counseling patient: Coding Level of Care Code 05708 SUB INP/OBS CARE 03/12MIN Diagnoses Diverticulitis K57.92
[2024-04-06 09:08] LABS: Hematocrit (blood only) 35.8 % (42.0-52.0); Hemoglobin 11.9 g/dl (14.0-18.0); Mean Corpuscular Hgb Conc 33.2 g/dL (32.0-36.0); Mean Corpuscular Volume 90.2 fL (80.0-100.0); Mean Platelet Volume 10.1 fL (9.4-12.4); Platelet Count 413 K/uL (130-400); RDW Coefficient of Variation 12.9 % (11.5-14.5); RDW Standard Deviation 43.1 fL (36.4-46.3); Red Blood Count 3.97 M/uL (4.70-6.10)
[2024-04-06 09:48] LABS: BUN Creatinine Ratio 5.1 (10-20); Calcium 9.6 mg/dl (8.6-10.3); Magnesium 2.2 mg/dl (1.7-2.4); Phosphorus 3.4 mg/dl (2.5-4.9); Potassium 4.4 mmol/L (3.5-5.1)
--- NOTE | 2024-04-06 13:37 | Hospitalist Progress Note ---
Date of Service April 06, 2024 Assessment & Plan (1) Diverticulitis: Plan Pt is a 68-year-old male with past medical history significant for dyslipidemia, GERD, multiple sclerosis, history of elevated prostatic specific antigen, recurrent left inguinal hernia who presents with recurrent diverticulitis. Patient had multiple episodes of diverticulitis. Recurrent diverticulitis Failed outpatient treatment with Cipro and Flagyl CAT scan showing diverticulitis and possible subcentimeter abscess History of multiple episodes of diverticulitis IV Zosyn Advancing diet as tolerated IV fluids has since been discontinued once started on po Pain control Surgery consulted, appreciate recs -conservative management Improving Hypertension Pt with episodes of hypertension as high as systolic 200s S/p doses of IV hydralazine with noted improvement Started on amlodipine 5mg qAM Continue to monitor Bradycardia Pt with episodes of bradycardia in the 40s-50s Not on BB EKG ordered noting sinus coral with HR of 58 ?increased vagal tone in setting of above? pt using narcotics infrequently so less likely the acute cause Continue to monitor on telemetry, transfer orders placed GERD On Pepcid and esomeprazole and sucralfate Hyperlipidemia On statin History of multiple sclerosis Currently not on any medications Ambulates with walker Elevated PSA Following with urology Diet: advancing as tolerated DVT prophylaxis: Lovenox Dispo: Home once medically stable, per PT pt at baseline does not need services Admission and Anticipated Discharge Date Admission Date: April 04, 2024 Subjective pt was seen right before lunch Notes still having LLQ abdominal pain. No nausea or vomiting later notified that pt's BP was significantly elevated, asymptomatic though slight bradycardia Review of Systems Review of Systems: All systems reviewed & are unremarkable except as noted in Subjective Physical Exam Physical Exam: General: Alert, oriented. No acute distress Neuro: No gross deficits HEENT: NC/AT CV: RRR Resp: Breath sounds clear bilaterally, no increased effort of breathing Abdomen: Soft,tender in LLQ, nondistended. No guarding Results & Data Results & Data Vital Signs (Past 12 Hours) Vital Signs Temp Pulse Resp BP Pulse Ox O2 Del Method 04/06/24 07:10 36.5 C 56 L 16 167/87 H 96 Room Air Diagnostic Findings Abdomen/Pelvis CT 04/03/24 23:06 EXAM: CT abd pelvis IV con only CLINICAL HISTORY: LLQ pain, fever, recent divertic TECHNIQUE: Contrast-enhanced CT of the abdomen and pelvis was performed, with the following protocol: axial images with, and reconstructed coronal and sagittal images. Intravenous contrast - 93 ML OPTIRAY 320- was administered. One of the following dose reduction techniques was utilized for this exam: Automated exposure control, adjustment of the mA and/or kV according to patient size, and use of iterative reconstruction. COMPARISON: 07/10/2023 17:21:02 CERAMICS ARTIST. FINDINGS: Abdomen: Liver: Enlarged in size 18 cm, preserved shape, and low density. No focal lesions, cysts, or masses were identified. Hepatic vasculature and biliary ducts are unremarkable. Gallbladder and Biliary System: Was removed with surgical clips applied. The common bile duct is normal in caliber without dilation. Pancreas: Pancreatic head, body, and tail are visualized and appear normal in size and density. Tiny calcific focus noted at its tail. No pancreatic masses or other calcifications were noted. The pancreatic duct is not dilated. Spleen: Normal in size, shape, and density. No splenic lesions or masses were identified. Appendix: The appendix is normal in size without jasper appendiceal fat stranding, and without an appendicolith. No evidence of appendiceal abscess or perforation. Kidneys and Adrenal Glands: Both kidneys are normal in size, shape, and position. Cortical thickness is within normal limits. No renal calculi or hydronephrosis. Right renal parapelvic cyst measuring 6.1x5.3 cm with wall calcification seen of 1 mm thickness (Bosniak 2) Adrenal glands are unremarkable with no evidence of masses or hyperplasia. Pelvis: Urinary Bladder: Normal in contour and wall thickness. No intraluminal lesions identified. Prostate: Mild enlarged in size. No focal lesions or masses identified. Seminal Vesicles: Normal in size and appearance. No abnormalities noted. Rectum and Sigmoid Colon: Normal wall thickness and no evidence of mass. Peritoneal and Retroperitoneal Structures: No free fluid or abnormal fluid collections were identified within the abdomen or pelvis. No lymphadenopathy was noted. Bowel: The distal part of the descending colon shows signs of acute diverticulitis with multiple diverticula and is associated with edematous colon wall and related mesenteric fat strandings. Possible sub centimetric abscess formation is noted at its upper part. The visualized bowel loops are normal in caliber and appearance. No evidence of bowel obstruction or wall thickening. Bones and Soft Tissues: Right inguinal hernia contains fat. Pelvic bones and soft tissues are unremarkable. No fractures or abnormal masses were identified. IMPRESSION: 1. Descending colon diverticular disease with newly developed distal part acute diverticulitis and possible sub centimetric abscess formation at its upper part. 2. Stable Fatty hepatomegaly. 3. Stable Right large renal parapelvic cyst with wall calcification (Bosniak 2) 4. Stable Mildly enlarged prostate. 5. Stable Right inguinal hernia contains fat. Electronically signed by Caroline Borrero 04-04-2024 01:09 AM Chest X-Ray 04/03/24 23:06 Exam(s): XR CXR 1 VIEW EXAM: XR Chest, 1 View CLINICAL HISTORY: Sepsis. TECHNIQUE: Frontal view of the chest. COMPARISON: No relevant prior studies available. FINDINGS: Lungs: No infiltrate. Mild right midlung field platelike atelectasis. No CHF. Pleural space: No pleural effusion. No pneumothorax. Heart: Unremarkable. No cardiomegaly. Mediastinum: Unremarkable. Normal mediastinal contour. Bones/joints: Unremarkable. No acute fracture. IMPRESSION: No acute abnormality. Electronically signed by: Raciel Crum M.D. 04/04/24 00:09 AM
[2024-04-06] MEDS: hydrALAZINE HCL 20 MG/ML VIAL IV ONE (16:04)
--- NOTE | 2024-04-06 16:41 | Electrocardiogram Report ---
Test Reason : Blood Pressure : */* mmHG Vent. Rate : 58 BPM Atrial Rate : 58 BPM P-R Int : 170 ms QRS Dur : 96 ms QT Int : 454 ms P-R-T Axes : 56 -9 19 degrees QTcB Int : 445 ms Sinus bradycardia with sinus arrhythmia Otherwise normal ECG When compared with ECG of 03-Apr-2024 23:17, No significant change was found Confirmed by Jerome Pryor ([id number]) on 04/06/2024 4:40:27 PM Referred By: REFERRED SELF Confirmed By: Jerome Pryor
[2024-04-06] MEDS: ALUMINUM/MAGNESIUM/SIMETH (MAALOX MAX) 30 ML UDC PO PRN (17:32)
[2024-04-07 07:37] LABS: Hematocrit (blood only) 35.8 % (42.0-52.0); Hemoglobin 12.2 g/dl (14.0-18.0); Mean Corpuscular Hemoglobin 30.2 pg (25.0-34.0); Mean Corpuscular Hgb Conc 34.1 g/dL (32.0-36.0); Mean Corpuscular Volume 88.6 fL (80.0-100.0); Mean Platelet Volume 10.1 fL (9.4-12.4); Platelet Count 438 K/uL (130-400); RDW Coefficient of Variation 12.6 % (11.5-14.5); RDW Standard Deviation 41.5 fL (36.4-46.3); Red Blood Count 4.04 M/uL (4.70-6.10); White Blood Count 5.33 K/ul (4.8-10.8)
[2024-04-07 07:47] LABS: BUN Creatinine Ratio 5.3 (10-20); Calcium 9.5 mg/dl (8.6-10.3); Creatinine Clr Calc Pharmacy 55.4 ml/min; Magnesium 2.1 mg/dl (1.7-2.4); Phosphorus 3.2 mg/dl (2.5-4.9); Potassium 3.5 mmol/L (3.5-5.1)
--- NOTE | 2024-04-07 07:51 | Surgery Progress Note ---
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 Pt confirms he occasionally has LE numbness due to MS and has been off of vitamins he usually takes which may b a cause of his calf symptoms On examination, there does not appear to be signs of DVT. The patient has been on DVT ppx and ambulating. His abdomen is essentially non-tender this am and is advancing to a full liquid diet. May continue to advance his diet as tolerted. We discussed again a colonoscopy after 8 weeks. He says he has this arranged. Surgery will sign off at this time. Please call/message with questions. Admission and Anticipated Discharge Date Admission Date: April 04, 2024 Subjective Mild LLQ discomfort , having reflux Started clears yesterday, denies N/V, f/c +Bm c/o bilateral calf "burning" Review of Systems Constitutional: no fever and no chills Respiratory: no dyspnea Cardiovascular: no chest pain Gastrointestinal: + abdominal pain and + heartburn; no blo ating, no nausea and no vomiting Genitourinary: no dysuria Musculoskeletal: + problem reported (chito .calf burning ) Integumentary: no rash Psychiatric: no confusion Physical Exam Constitutional: cooperative and comfortable; no acute distress Respiratory: normal respiratory effort and able to speak in complete sentences; no respiratory distress Cardiovascular: Rate/Rhythm: regular rate Gastrointestinal (Abdomen): Inspection/Auscultation: abdomen not distended Percussion/Palpation: + abdomen tender (LLQ) and abdomen soft Musculoskeletal: no cyanosis or clubbing, extremities motor strength 5/5 Skin: no rashes, warm and dry Psychiatric: A+Ox3, euthymic affect Results & Data Vital Signs (Past 12 Hours) Vital Signs Temp Pulse Pulse Pulse Resp BP BP 04/07/24 07:22 97.5 F L 60 18 188/83 H 04/07/24 02:50 98.2 F 61 16 146/69 H 04/07/24 00:12 98.2 F 54 L 18 151/76 H 04/06/24 23:00 49 L 04/06/24 19:44 97.9 F 57 L 16 156/77 H Pulse Ox O2 Del Method 04/07/24 07:22 95 Room Air 04/07/24 02:50 96 Room Air 04/07/24 00:12 99 Room Air 04/06/24 23:00 04/06/24 19:44 99 Room Air PG Care Time/CCT Total # of Minutes Spent Total Time Spent with Patient: Total time spent is greater than 50% in coordination of care (as documented) at patient's floor/unit and/or counseling patient: Coding Level of Care Code 50537 SUB INP/OBS CARE 03/12MIN Diagnoses Diverticulitis K57.92
[2024-04-07] MEDS: amLODIPine BESYLATE 5 MG TAB PO SCH (08:21)
--- NOTE | 2024-04-07 11:58 | Ultrasound Report ---
BILATERAL LOWER EXTREMITY VENOUS DOPPLER HISTORY: r/o dvt COMPARISON STUDY: None TECHNIQUE: Duplex and color Doppler evaluation of the deep venous system of both lower extremities wa s performed. FINDINGS: There is no evidence of DVT in either leg. The major deep venous channels are compressible and patent. There is no intraluminal filling defect or occlusive disease identified. IMPRESSION: Negative for DVT ACT 112: Negative or not required by law. Electronically signed by: Janina Costello M.D. 04/07/2024 11:56 AM
--- NOTE | 2024-04-07 15:32 | Hospitalist Progress Note ---
Date of Service April 07, 2024 Assessment & Plan (1) Diverticulitis: Plan Pt is a 68-year-old male with past medical history significant for dyslipidemia, GERD, multiple sclerosis, history of elevated prostatic specific antigen, recurrent left inguinal hernia who presents with recurrent diverticulitis. Patient had multiple episodes of diverticulitis. Recurrent diverticulitis Failed outpatient treatment with Cipro and Flagyl CAT scan showing diverticulitis and possible subcentimeter abscess History of multiple episodes of diverticulitis IV Zosyn Advancing diet as tolerated IV fluids has since been discontinued once started on po Pain control Surgery consulted, appreciate recs -conservative management -advance diet -colonoscopy in 8 weeks Improving Hypertension Pt with episodes of hypertension as high as systolic 200s S/p doses of IV hydralazine with noted improvement Started on amlodipine 5mg qAM Continue to monitor Bradycardia Pt with episodes of bradycardia in the 40s-50s Not on BB EKG ordered noting sinus coral with HR of 58 ?increased vagal tone in setting of above? pt using narcotics infrequently so less likely the acute cause Continue to monitor on telemetry, transfer orders placed Lower Extremity Pain Doppler US ordered and r/o DVT Likely in setting of known neuropathy GERD On Pepcid and esomeprazole and sucralfate Hyperlipidemia On statin History of multiple sclerosis Currently not on any medications Ambulates with walker Elevated PSA Following with urology Diet: advancing as tolerated DVT prophylaxis: Lovenox Dispo: Home once medically stable, per PT pt at baseline does not need services Admission and Anticipated Discharge Date Admission Date: April 04, 2024 Subjective patient was seen laying in bed with his at bedside States that the abdominal pain is getting better tolerating the full liquids and excited about having his diet advanced Denying any fevers, chills or night sweats. Review of Systems Review of Systems: All systems reviewed & are unremarkable except as noted in Subjective Physical Exam Physical Exam: General: Alert, oriented. No acute distress Neuro: No gross deficits HEENT: NC/AT CV: RRR Resp: Breath sounds clear bilaterally, no increased effort of breathing Abdomen: Soft,tender in LLQ, nondistended. No guarding Results & Data Results & Data Vital Signs (Past 12 Hours) Vital Signs Temp Pulse Resp BP Pulse Ox O2 Del Method 04/07/24 10:56 36.5 C 52 L 18 164/76 H 98 Room Air 04/07/24 09:30 Room Air 04/07/24 07:22 36.4 C L 60 18 188/83 H 95 Room Air
[2024-04-07] MEDS ORDERED: SIMETHICONE 80 MG CHEW PO PRN (18:13)
[2024-04-07] MEDS: ADVANCED PROBIOTIC 625 MG CAPSULE PO SCH (20:58)
[2024-04-08 11:05] VITALS: BP 150/64; RESP 15; TEMP 97.3; O2SAT 97
--- NOTE | 2024-04-08 11:08 | Discharge Summary ---
Discharge Summary Date of Service April 08, 2024 Principal Dx & Hospital Course #1 = Principal Diagnosis (1) Diverticulitis: Plan Pt is a 68-year-old male with past medical history significant for dyslipidemia, GERD, multiple sclerosis, history of elevated prostatic specific antigen, recurrent left inguinal hernia who presents with recurrent diverticulitis. Patient had multiple episodes of diverticulitis. Recurrent diverticulitis Failed outpatient treatment with Cipro and Flagyl CAT scan showing diverticulitis and possible subcentimeter abscess History of multiple episodes of diverticulitis Treated with IV Zosyn for 4 days and transitioned to po cefdinir and flagyl for 10 additional days on discharge Advanced diet as tolerated IV fluids has since been discontinued once he started taking po Pain control Surgery consulted, appreciate recs -conservative management -advance diet -colonoscopy in 8 weeks after discharge On the day of discharge, patient was tolerating a low fiber diet, anxious for discharge. He noted he was passing gas and having bowel movements with minimal left lower abdominal pain. Close PCP follow-up after discharge. Will need colonoscopy after discharge. Hypertension Pt with episodes of hypertension as high as systolic 200s S/p doses of IV hydralazine with noted improvement Started on amlodipine 5mg qAM, BPs improved PCP follow-up for continued blood pressure monitoring and medication adjustments as needed. Bradycardia Pt with episodes of bradycardia in the 40s-50s Not on a beta-noman EKG ordered noting sinus coral with HR of 58 ?increased vagal tone in setting of above? pt using narcotics infrequently so less likely the acute cause Heart rates remained stable in the lower 50s and patient was asymptomatic. PCP follow-up for continued monitoring after discharge. Lower Extremity Pain Doppler US ordered and r/o DVT Likely in setting of known neuropathy GERD On Pepcid and esomeprazole and sucralfate Hyperlipidemia On statin History of multiple sclerosis Currently not on any medications Ambulates with walker Elevated PSA Following with urology Notes For Next Care Provider per general surgery, will need colonoscopy in 8 weeks Medication Changes From Visit Amlodipine 5 mg daily Cefdinir and Flagyl for an additional 10 days to complete 14 days of treatment Admission HPI Per Admitting Provider 68-year-old male with past medical history significant for dyslipidemia, GERD, multiple sclerosis, history of elevated prostatic specific antigen, recurrent left inguinal hernia, presents with recurrent diverticulitis. Patient had multiple episodes of diverticulitis. Last episode was 3 weeks ago when treated with Cipro and Flagyl. He completed the antibiotics about 8 days ago. The pain never went away and become progressively worse and severe since Thursday. Having nausea. No fevers. Constipated. Micturating okay. No chest pain or shortness of breath. No runny nose or sore throat. No cough. Currently hemodynamics are okay. Past medical history. As mentioned above Past surgical history. Colonoscopy. Dental surgery. EGD. EGD with endoscopic ultrasound. Left laparoscopic inguinal hernia repair. Removal of epididymis lesion. Cholecystectomy. Vasectomy. Social history. . No smoking. Alcohol rarely. No drug use. Family history. Mother had hypertension. Paternal grandfather had heart disorder. Paternal grandmother had diabetes. Maternal grandfather heart disorder. Maternal grandmother had arthritis. Admission Exam Per Admitting Provider General- Not in distress Head- atraumatic Eyes- PERRL. ENT- oropharynx clear Neck- supple, no JVD. Lungs- clear to auscultation no wheezing or crackles Heart- regular rhythm; no murmur, no gallop. Abdomen- normal bowel sounds, soft, tenderness in llq region with guarding, no distension Extremities- no pretibial edema, no erythema seen Neuro- alert, oriented PERRL, no facial palsy; no dysarthria; moves extremities Discharge Exam General: Alert, oriented. No acute distress Neuro: No gross deficits HEENT: NC/AT CV: RRR Resp: Breath sounds clear bilaterally, no increased effort of breathing Abdomen: Soft,tender in LLQ, nondistended. No guarding Updated Medication List Medication Instructions Recorded Confirmed Type esomeprazole magnesium 20 mg 20 mg PO DAILY 04/04/24 04/04/24 History capsule,delayed release famotidine 20 mg tablet 20 mg PO DAILY 04/04/24 04/04/24 History hydrocodone 7.5 mg-acetaminophen 1 tab PO BID PRN Severe Pain 04/04/24 04/04/24 History 325 mg tablet (Scale Score 7-10) hydroxyzine HCl 10 mg tablet 10 mg PO Q6H PRN Anxiety 04/04/24 04/04/24 History rosuvastatin 5 mg tablet 5 mg PO DAILY 04/04/24 04/04/24 History sucralfate 1 gram tablet 1 g PO DAILY 04/04/24 04/04/24 History Saccharomyces boulardii 250 mg 250 mg PO BID #60 caps 04/08/24 Rx capsule (Florastor) amlodipine 5 mg tablet (Norvasc) 5 mg PO QAM #30 tabs 04/08/24 Rx cefdinir 300 mg capsule 300 mg PO BID #20 caps 04/08/24 Rx metronidazole 500 mg tablet 500 mg PO Q8H #30 tabs 04/08/24 Rx Hospital Stay Data Consultations 04/04/24 01:12 ED Decision to Admit Stat 04/04/24 09:59 Consult General Surgery Routine Diagnostic Imagining Performed 04/03/24 23:06 CT abd pelvis IV con only Stat 04/07/24 09:25 US venous doppler LE Urgent Abdomen/Pelvis CT 04/03/24 23:06 EXAM: CT abd pelvis IV con only CLINICAL HISTORY: LLQ pain, fever, recent divertic TECHNIQUE: Contrast-enhanced CT of the abdomen and pelvis was performed, with the following protocol: axial images with, and reconstructed coronal and sagittal images. Intravenous contrast - 93 ML OPTIRAY 320- was administered. One of the following dose reduction techniques was utilized for this exam: Automated exposure control, adjustment of the mA and/or kV according to patient size, and use of iterative reconstruction. 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 FINDINGS: Abdomen: Liver: Enlarged in size 18 cm, preserved shape, and low density. No focal lesions, cysts, or masses were identified. Hepatic vasculature and biliary ducts are unremarkable. Gallbladder and Biliary System: Was removed with surgical clips applied. The common bile duct is normal in caliber without dilation. Pancreas: Pancreatic head, body, and tail are visualized and appear normal in size and density. Tiny calcific focus noted at its tail. No pancreatic masses or other calcifications were noted. The pancreatic duct is not dilated. Spleen: Normal in size, shape, and density. No splenic lesions or masses were identified. Appendix: The appendix is normal in size without jasper appendiceal fat stranding, and without an appendicolith. No evidence of appendiceal abscess or perforation. Kidneys and Adrenal Glands: Both kidneys are normal in size, shape, and position. Cortical thickness is within normal limits. No renal calculi or hydronephrosis. Right renal parapelvic cyst measuring 6.1x5.3 cm with wall calcification seen of 1 mm thickness (Bosniak 2) Adrenal glands are unremarkable with no evidence of masses or hyperplasia. Pelvis: Urinary Bladder: Normal in contour and wall thickness. No intraluminal lesions identified. Prostate: Mild enlarged in size. No focal lesions or masses identified. Seminal Vesicles: Normal in size and appearance. No abnormalities noted. Rectum and Sigmoid Colon: Normal wall thickness and no evidence of mass. Peritoneal and Retroperitoneal Structures: No free fluid or abnormal fluid collections were identified within the abdomen or pelvis. No lymphadenopathy was noted. Bowel: The distal part of the descending colon shows signs of acute diverticulitis with multiple diverticula and is associated with edematous colon wall and related mesenteric fat strandings. Possible sub centimetric abscess formation is noted at its upper part. The visualized bowel loops are normal in caliber and appearance. No evidence of bowel obstruction or wall thickening. Bones and Soft Tissues: Right inguinal hernia contains fat. Pelvic bones and soft tissues are unremarkable. No fractures or abnormal masses were identified. IMPRESSION: 1. Descending colon diverticular disease with newly developed distal part acute diverticulitis and possible sub centimetric abscess formation at its upper part. 2. Stable Fatty hepatomegaly. 3. Stable Right large renal parapelvic cyst with wall calcification (Bosniak 2) 4. Stable Mildly enlarged prostate. 5. Stable Right inguinal hernia contains fat. Electronically signed by Caroline Borrero 04-04-2024 01:09 AM Chest X-Ray 04/03/24 23:06 Exam(s): XR CXR 1 VIEW EXAM: XR Chest, 1 View CLINICAL HISTORY: Sepsis. TECHNIQUE: Frontal view of the chest. COMPARISON: No relevant prior studies available. FINDINGS: Lungs: No infiltrate. Mild right midlung field platelike atelectasis. No CHF. Pleural space: No pleural effusion. No pneumothorax. Heart: Unremarkable. No cardiomegaly. Mediastinum: Unremarkable. Normal mediastinal contour. Bones/joints: Unremarkable. No acute fracture. IMPRESSION: No acute abnormality. Electronically signed by: Raciel Crum M.D. 04/04/24 00:09 AM Venous Doppler Study 04/07/24 09:25 BILATERAL LOWER EXTREMITY VENOUS DOPPLER HISTORY: r/o dvt COMPARISON STUDY: None TECHNIQUE: Duplex and color Doppler evaluation of the deep venous system of both lower extremities was performed. FINDINGS: There is no evidence of DVT in either leg. The major deep venous channels are compressible and patent. There is no intraluminal filling defect or occlusive disease identified. IMPRESSION: Negative for DVT ACT 112: Negative or not required by law. Electronically signed by: Janina Costello M.D. 04/07/2024 11:56 AM Discharge Instructions Given to Patient (Per Discharging Provider) Mr. Davey, Jacques were admitted and treated for acute diverticulitis with a possible abscess. You were seen by the general surgeon who recommended conservative management. To give your bowel some rest time, you had your diet slowly advanced. Please continue with a low fiber diet after discharge. We treated you with IV antibiotics for 4 days while in the hospital. We are discharging you home with 2 more antibiotics called cefdinir and metronidazole. Please take them as prescribed for an additional 10 days to complete a total of 14 days of treatment. Please continue with a probiotic while on the antibiotics, as well as for a few more days after you complete the antibiotic course. Your blood pressures were also noted to be high and we started you on the medication Amlodipine to help with that. Please take it as prescribed daily in the morning. Please keep close follow-up with your primary care provider for continued monitoring of your blood pressure and medication adjustments as needed. Again, please keep close follow up with your primary care provider and your specialists after discharge. Please do not hesitate to come back to the emergency room if your symptoms worsen or return. It was a pleasure taking care of you while you were here. Total Time Total Time Spent Total Time Spent (In Minutes): 60
[2024-04-08 13:16] VITALS: PULSE 53
== END 2024-04-08 14:45 | disposition home or self-care (01) | DRG 392 ==
LOC: ED 22:44 → SUATTDRO 04-04 05:39 → EDINP 04-04 05:39 → 3N 04-04 10:00 → 2N 04-06 21:56